=== PATIENT | female | born 1950 | race Caucasian/White ===

== ENCOUNTER 2019-12-17 21:06 | Inpatient (IN) | payer MEDICARE, BC ==
[2019-12-17] MEDS ORDERED: Sodium Chloride 0.9% 10 ML Syringe FLUSH PRN (21:33)
--- NOTE | 2019-12-17 21:39 | EDM.PDOC ---
ED HPI GENERAL MEDICAL PROBLEM - General Chief Complaint: Lower Extremity Injury/Pain Stated Complaint: WEAK,RT ANKLE SWOLLEN Time Seen by Provider: 12/17/19 21:25 Source of Information: Reports: Patient History Limitations: Reports: Other (incomplete medical records.) - History of Present Illness INITIAL COMMENTS - FREE TEXT/NARRATIVE: 69 yo female with a pHx of RA saw Dr. Trinidad on Wednesday for increased pain and swelling of her R ankle this past Wednesday. She says he thought this was due to a flare of her RA. No follow up appt was scheduled. Since then she has had worsening of her sx's. She takes acetaminophen 1000 mg qid chronically including today. Has had chills today. Feels weaker than normal. 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: Acetaminophen - Related Data Allergies Allergy/AdvReac Type Severity Reaction Status Date / Time levofloxacin [From Levaquin] Allergy Leg Cramps Verified 10/30/19 09:44 indomethacin [From Indocin] AdvReac Nausea Verified 03/04/18 11:35 indomethacin sodium AdvReac Nausea Verified 03/04/18 11:35 [From Indocin] naproxen [From Naprosyn] AdvReac Nausea Verified 03/04/18 11:35 trazodone AdvReac Nausea Verified 03/04/18 11:35 Home Meds: Home Meds Amitriptyline [Elavil] 150 mg PO BEDTIME 09/15/13 [History] Cyclobenzaprine [Flexeril] 10 mg PO BID 09/15/13 [History] Ferrous Gluconate 240 mg PO DAILY 09/15/13 [History] Multivitamin [Multi-Vitamin Daily] 1 each PO DAILY 09/15/13 [History] predniSONE [Prednisone] 20 mg PO DAILY 09/15/13 [History] ClonazePAM [KlonoPIN] 0.5 mg PO BEDTIME 03/04/18 [History] carvediloL [Carvedilol] 6.25 mg PO BID 03/04/18 [History] Acetaminophen 2,000 mg PO BID 10/27/19 [History] Budesonide/Formoterol [Symbicort 160-4.5 MCG] 2 puff INH BID 10/27/19 [History] Calcitonin ([place]) [Miacalcin] 1 spray JOHN DAILY 10/27/19 [History] Diclofenac Sodium [Voltaren 1% Gel] 4 gram TOP QID 10/27/19 [History] Pantoprazole Sodium [Protonix] 40 mg PO BID 10/27/19 [History] Pravastatin Sodium [Pravachol] 20 mg PO DAILY 10/27/19 [History] Tryptophan [l-Tryptophan] 2,000 mg PO DAILY PRN 10/27/19 [History] Ubidecarenone [Coq-10] 1 tab PO DAILY 10/27/19 [History] busPIRone [Buspar] 10 mg PO QID 10/27/19 [History] hydrALAZINE [Apresoline] 25 mg PO QID 10/27/19 [History] Past Medical History Cardiovascular History: Reports: High Cholesterol, Hypertension Gastrointestinal History: Reports: GERD Genitourinary History: Reports: Renal Disease 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: Psychiatric History: Reports: Anxiety - Past Surgical History GI Surgical History: Reports: Appendectomy, Colon Female Surgical History: Reports: Section Review of Systems - Review of Systems Review Of Systems: See Below Constitutional: Reports: Chills Eyes: Reports: No Symptoms Ears: Reports: No Symptoms Nose: Reports: No Symptoms Mouth/Throat: Reports: No Symptoms Respiratory: Reports: No Symptoms Cardiovascular: Reports: No Symptoms GI/Abdominal: Reports: No Symptoms Genitourinary: Reports: No Symptoms Musculoskeletal: Reports: Joint Pain (R ankle) Skin: Reports: Erythema (R foot and ankle) Neurological: Reports: No Symptoms ED EXAM, GENERAL - Physical Exam Exam: See Below Exam Limited By: No Limitations General Appearance: Alert, WD/WN, No Apparent Distress Eye Exam: Bilateral Eye: Normal Inspection Ears: Normal External Exam, Normal Canal, Hearing Grossly Normal Ear Exam: Bilateral Ear: Auricle Normal, Canal Normal Nose: Normal Inspection, No Blood Throat/Mouth: Normal Inspection, Normal Lips, Normal Oropharynx, Normal Voice, No Airway Compromise Head: Atraumatic, Normocephalic Neck: Normal Inspection Respiratory/Chest: No Respiratory Distress, Lungs Clear, Normal Breath Sounds, No Accessory Muscle Use Cardiovascular: Regular Rate, Rhythm, No Edema GI/Abdominal: Normal Bowel Sounds, Soft, Non-Tender, No Distention Back Exam: No: CVA Tenderness (R), CVA Tenderness (L) Extremities: Pedal Edema (R ankle, lower leg and foot are edematous), Limited Range of Motion (some ankle pain with movement), Increased Warmth (R leg, ankle , foot), Redness (same area that is swollen) Neurological: Alert, Oriented, CN II-XII Intact, Normal Cognition, No Motor/ Sensory Deficits Psychiatric: Normal Affect, Normal Mood Skin Exam: Warm, Dry, Erythema (R foot and ankle), Increased Warmth (R foot and ankle). No: Normal Color, No Rash Course - Vital Signs Text/Narrative:: Dr. Trinidad called @ 2223h Last Recorded V/S: Last Vital Signs Temp 37.1 C 12/17/19 21:34 Pulse 107 H 12/17/19 21:34 Resp 16 12/17/19 21:34 BP 91/57 L 12/17/19 21:34 Pulse Ox 98 12/17/19 21:34 - Orders/Labs/Meds Orders: Active Orders 24 hr Category Date Time Status CULTURE BLOOD [BC] Routine Lab 12/17/19 22:05 Received CULTURE BLOOD [BC] Stat Lab 12/17/19 21:33 Received Sodium Chloride 0.9% [Saline Flush] Med 12/17/19 21:33 Active 10 ml FLUSH ASDIRECTED PRN cefTRIAXone [Rocephin] 1 gm Med 12/17/19 22:13 Active Sodium Chloride 0.9% [Normal Saline] 50 ml IV ONETIME Saline Lock Insert [OM.PC] Routine Oth 12/17/19 21:33 Ordered Medication Orders Ceftriaxone Sodium 1 gm/ (Sodium Chloride) 50 mls @ 100 mls/hr IV ONETIME ONE Stop: 12/17/19 22:42 Last Admin: 12/17/19 22:26 Dose: 100 mls/hr Sodium Chloride (Saline Flush) 10 ml FLUSH ASDIRECTED PRN PRN Reason: Keep Vein Open Last Admin: 12/17/19 21:49 Dose: 10 ml Labs: Laboratory Tests 12/17/19 12/17/19 12/17/19 Range/Units 21:51 21:51 21:51 WBC 28.5 H (4.5-11.0) K/uL RBC 4.60 (3.30-5.50) M/uL Hgb 14.6 D (12.0-15.0) g/dL Hct 47.7 (36.0-48.0) % MCV 104 H (80-98) fL MCH 32 H (27-31) pg MCHC 31 L (32-36) % Plt Count 269 (150-400) K/uL Sodium 137 L (140-148) mmol/L Potassium 4.2 (3.6-5.2) mmol/L Chloride 100 (100-108) mmol/L Carbon Dioxide 26 (21-32) mmol/L Anion Gap 15.2 H (5.0-14.0) mmol/L BUN 37 H D (7-18) mg/dL Creatinine 2.0 H (0.6-1.0) mg/dL Est Cr Clr Drug Dosing TNP Estimated GFR (MDRD) 25 L (>60) Glucose 112 H (74-106) mg/dL Lactic Acid 2.3 H (0.4-2.0) mmol/L Calcium 8.6 (8.5-10.1) mg/dL C-Reactive Protein 16.48 H (0.0-0.3) mg/dL Urine Color (YELLOW) Urine Appearance (CLEAR) Urine pH (5.0-8.0) Ur Specific [place] (1.008-1.030) Urine Protein (NEGATIVE) mg/dL Urine Glucose (UA) (NEGATIVE) mg/dL Urine Ketones (NEGATIVE) mg/dL Urine Occult Blood (NEGATIVE) Urine Nitrite (NEGATIVE) Urine Bilirubin (NEGATIVE) Urine Urobilinogen (0.2-1.0) EU/dL Ur Leukocyte Esterase (NEGATIVE) Urine RBC (0-5) Urine WBC (0-5) Ur Epithelial Cells Amorphous Sediment Urine Bacteria Urine Mucus 12/17/19 Range/Units 22:05 WBC (4.5-11.0) K/uL RBC (3.30-5.50) M/uL Hgb (12.0-15.0) g/dL Hct (36.0-48.0) % MCV (80-98) fL MCH (27-31) pg MCHC (32-36) % Plt Count (150-400) K/uL Sodium (140-148) mmol/L Potassium (3.6-5.2) mmol/L Chloride (100-108) mmol/L Carbon Dioxide (21-32) mmol/L Anion Gap (5.0-14.0) mmol/L BUN (7-18) mg/dL Creatinine (0.6-1.0) mg/dL Est Cr Clr Drug Dosing Estimated GFR (MDRD) (>60) Glucose (74-106) mg/dL Lactic Acid (0.4-2.0) mmol/L Calcium (8.5-10.1) mg/dL C-Reactive Protein (0.0-0.3) mg/dL Urine Color Yellow (YELLOW) Urine Appearance Clear (CLEAR) Urine pH 6.0 (5.0-8.0) Ur Specific [place] 1.020 (1.008-1.030) Urine Protein 30 H (NEGATIVE) mg/dL Urine Glucose (UA) Negative (NEGATIVE) mg/dL Urine Ketones Negative (NEGATIVE) mg/dL Urine Occult Blood Negative (NEGATIVE) Urine Nitrite Negative (NEGATIVE) Urine Bilirubin Negative (NEGATIVE) Urine Urobilinogen 0.2 (0.2-1.0) EU/dL Ur Leukocyte Esterase Small H (NEGATIVE) Urine RBC Not seen (0-5) Urine WBC 5-10 H (0-5) Ur Epithelial Cells Rare Amorphous Sediment Rare Urine Bacteria Not seen Urine Mucus Not seen Meds: Medications Generic Name Dose Route Start Last Admin Trade Name Freq PRN Reason Stop Dose Admin Ceftriaxone Sodium 1 gm/ 50 mls @ 100 mls/hr 12/17/19 22:13 12/17/19 22:26 Sodium Chloride IV 12/17/19 22:42 100 mls/hr ONETIME ONE Administration Sodium Chloride 10 ml 12/17/19 21:33 12/17/19 21:49 Saline Flush FLUSH 10 ml ASDIRECTED PRN Administration Keep Vein Open Departure - Departure Time of Disposition: 22:45 Disposition: Admitted As Inpatient 64 Condition: Fair Clinical Impression: Cellulitis of right lower extremity - Discharge Information *PRESCRIPTION DRUG MONITORING PROGRAM REVIEWED*: No *COPY OF PRESCRIPTION DRUG MONITORING REPORT IN PATIENT YAW: No Referrals: Roverto Dewey MD [Primary Care Provider] - Forms: ED Department Discharge Sepsis Event Note - Focused Exam Vital Signs: Vital Signs Temp Pulse Resp BP Pulse Ox 12/17/19 21:34 37.1 C 107 H 16 91/57 L 98 12/17/19 21:33 37.1 C 107 H 16 91/57 L 98 Date Exam was Performed: 12/17/19 Time Exam was Performed: 22:27 - My Orders Last 24 Hours: My Active Orders 12/17/19 21:33 CULTURE BLOOD [BC] Stat Sodium Chloride 0.9% [Saline Flush] 10 ml FLUSH ASDIRECTED PRN Saline Lock Insert [OM.PC] Routine 12/17/19 22:05 CULTURE BLOOD [BC] Routine 12/17/19 22:13 cefTRIAXone [Rocephin] 1 gm Sodium Chloride 0.9% [Normal Saline] 50 ml IV ONETIME - Assessment/Plan Last 24 Hours: My Active Orders 12/17/19 21:33 CULTURE BLOOD [BC] Stat Sodium Chloride 0.9% [Saline Flush] 10 ml FLUSH ASDIRECTED PRN Saline Lock Insert [OM.PC] Routine 12/17/19 22:05 CULTURE BLOOD [BC] Routine 12/17/19 22:13 cefTRIAXone [Rocephin] 1 gm Sodium Chloride 0.9% [Normal Saline] 50 ml IV ONETIME
[2019-12-17] MEDS ORDERED: cefTRIAXone 1 GM in Sodium Chloride 0.9% 50 ML IV ONE (22:13)
[2019-12-17] MEDS ORDERED: cefTRIAXone 1 GM in Sodium Chloride 0.9% 50 ML IV SCH (23:15)
[2019-12-18] MEDS: Sodium Chloride 0.9% 1,000 ML IV SCH ×2 (00:02→07:13)
--- NOTE | 2019-12-18 00:25 | HP ---
CHIEF COMPLAINT: Right ankle and foot pain, swelling. HISTORY OF PRESENT ILLNESS: A 69-year-old who has a history of rheumatoid arthritis and also a history over the last couple of months of elevated white count. She has seen Hematology/Oncology. No specific etiology has been identified. She was seen in the clinic by myself. She normally sees Dr. Dewey. I saw her on Wednesday for ankle pain, started the day prior with right ankle pain and swelling, but she states that it was feeling better and she was able to go for a 5 mile walk that day, maybe she was afebrile and maybe was related to rheumatoid arthritis, pain that was feeling better. Was continuing with ice and taking her Tylenol. She is on prednisone, but things progressed over the weekend with increased pain and swelling extending down to the foot. Was evaluated by emergency room physician, was felt to have cellulitis, possible joint infection. She had a sore in her mid pruitt that may have been the source. I was asked to admit the patient for further evaluation and treatment. PAST MEDICAL HISTORY: 1. Rheumatoid arthritis. 2. Polymyalgia rheumatica. 3. Osteoporosis. 4. Gastroesophageal reflux disease. 5. Hyperlipidemia. 6. Secondary hyperparathyroidism. 7. Chronic kidney disease. 8. Type 2 diabetes mellitus. 9. Elevated white count, etiology uncertain. MEDICATIONS: 1. Acetaminophen 2000 mg b.i.d. 2. Amitriptyline 150 mg at bedtime. 3. Symbicort 160/4.5 two puffs b.i.d. 4. Buspirone 10 mg q.i.d. 5. Calcitonin 1 spray nasally daily. 6. Carvedilol 6.25 mg b.i.d. 7. Clonazepam 0.5 mg at bedtime. 8. Cyclobenzaprine 10 mg b.i.d. 9. Diclofenac topically q.i.d. 10.Ferrous gluconate 240 mg daily. 11.Hydralazine 25 mg q.i.d. 12.Multivitamin daily. 13.Protonix 40 mg b.i.d. 14.Pravastatin 20 mg daily. 15.Prednisone 20 mg daily. 16.Tryptophan 2000 mg daily p.r.n. 17.Ubidecarenone 100 mg daily. ALLERGIES: LEVOFLOXACIN, INDOMETHACIN, NAPROXEN, TRAZODONE. SOCIAL HISTORY: Is a nonsmoker. FAMILY HISTORY: Noncontributory. REVIEW OF SYSTEMS: Denies headaches, vision changes, upper respiratory symptoms. No chest pain, shortness of breath, cough, nausea, vomiting, diarrhea, or constipation. No urinary problems reported. She does have the swelling in her right ankle and foot with erythema and discomfort. No neurologic complaints reported. OBJECTIVE: VITAL SIGNS: Temp 37.1, pulse 107, blood pressure 91/57, respirations 16, O2 saturation 98% on room air. GENERAL: The patient seems to be more lethargic than she was on Wednesday, 2 days ago, but was otherwise alert. HEENT: Pharynx, slightly dry mucous membranes, otherwise unremarkable. NECK: Supple. No adenopathy, thyromegaly, JVD, carotid bruits. LUNGS: Clear. HEART: Regular without murmurs. ABDOMEN: Soft, nontender. No mass or organomegaly palpated. EXTREMITIES: She does have edema to the mid tibia with erythema and warmth. Tenderness to the right lower leg and the swelling extends down her foot, which on Wednesday, did not. She does have about a centimeter sore in the pruitt more medially. I do not see any active drainage. Left leg was unremarkable. LABORATORY DATA: White count 28,000, hemoglobin 14.6, platelets 269,000. Sodium 137, potassium 4.2, chloride 100, BUN was 37, creatinine 2.0, glucose 112. Lactic acid was slightly elevated at 2.3. C-reactive protein 16,000. Urinalysis was unremarkable. She did have 5 to 10 white cells. ASSESSMENT: 1. Cellulitis, possible joint infection. We will admit her inpatient. IV antibiotics. She has already been started on IV Rocephin, which we will continue. Blood cultures have been obtained. 2. Underlying rheumatoid arthritis and also history of polymyalgia rheumatica. 3. Hypertension. 4. Chronic kidney disease. 5. Type 2 diabetes mellitus. 6. Gastric reflux disease. Transfer her care to the Hospitalist Service in the morning. Cedric Trinidad MD /[id number]
[2019-12-18] MEDS: Fluticasone-Salmeterol 232-14 MCG Powder Inhalent INH SCH ×2 (08:29→21:44)
[2019-12-18] MEDS ORDERED: Calcitonin (Salmon) 200 Units/ML 2 ML MDV SCH (09:00)
[2019-12-18] MEDS: Ferrous Sulfate 325 MG Tab PO SCH (09:28)
[2019-12-18] MEDS: predniSONE 20 MG Tab PO SCH (09:28)
[2019-12-18] MEDS: Carvedilol 6.25 MG Tab PO SCH ×2 (09:29→21:31)
[2019-12-18] MEDS: Pantoprazole 40 MG Tab.CR PO SCH ×2 (09:29→21:32)
[2019-12-18] MEDS: Multivitamins with Iron/Calcium/Folic Acid/Minerals Tab PO SCH (09:29)
[2019-12-18] MEDS: Cyclobenzaprine 10 MG Tab PO SCH ×2 (09:29→21:30)
[2019-12-18] MEDS: Calcitonin (Salmon) Nasal Spray 3.7 ML Bottle NAS SCH (09:29)
[2019-12-18] MEDS: Pravastatin 20 MG Tab PO SCH (09:29)
[2019-12-18] MEDS: Acetaminophen 325 MG Tab PO PRN (09:34)
[2019-12-18] MEDS: busPIRone 10 MG Tab PO SCH ×2 (09:36→17:15)
[2019-12-18] MEDS: hydrALAZINE 25 MG Tab PO SCH ×4 (09:36→21:30)
[2019-12-18] MEDS ORDERED: ceFAZolin 1 GM in Premix Bag 1 BAG IV SCH ×2 (11:00→14:00)
[2019-12-18] MEDS: Lactobacillus Rhamnosus GG (Probiotic) Cap PO SCH ×2 (11:49→21:30)
[2019-12-18] MEDS: busPIRone 5 MG Tab PO SCH ×3 (12:29→21:45)
--- NOTE | 2019-12-18 13:53 | PCM.PN ---
- General Info Date of Service: 12/18/19 Subjective Update: Ms. Singleton is a 69-year-old woman who was admitted through the emergency department last night with apparent cellulitis of her right ankle. She notes some improvement in erythema and swelling since admission with current antibiotic therapy. She has known underlying rheumatoid arthritis and has been treated recently with oral prednisone. Since admission she is developed pain and swelling in the first PIP joint right hand. Vital signs have remained fairly stable and she has been afebrile, white blood cell count remains elevated Functional Status: Reports: Tolerating Diet, Urinating. Denies: Ambulating - Review of Systems General: Reports: Weakness, Malaise. Denies: Fever, Chills Pulmonary: Reports: No Symptoms Cardiovascular: Reports: No Symptoms Gastrointestinal: Reports: No Symptoms Musculoskeletal: Reports: Joint Pain, Joint Swelling - Patient Data Vitals - Most Recent: Last Vital Signs Temp 97.4 F 12/18/19 11:12 Pulse 84 12/18/19 11:12 Resp 16 12/18/19 11:12 BP 119/69 12/18/19 11:12 Pulse Ox 96 12/18/19 11:12 Weight - Most Recent: 101 lb I&O - Last 24 Hours: Intake & Output 12/17/19 12/18/19 12/18/19 22:59 06:59 14:59 Intake Total 789 350 Output Total 350 Balance 789 0 Lab Results Last 24 Hours: Laboratory Results - last 24 hr 12/17/19 12/17/19 12/17/19 Range/Units 21:51 21:51 21:51 WBC 28.5 H (4.5-11.0) K/uL RBC 4.60 (3.30-5.50) M/uL Hgb 14.6 D (12.0-15.0) g/dL Hct 47.7 (36.0-48.0) % MCV 104 H (80-98) fL MCH 32 H (27-31) pg MCHC 31 L (32-36) % Plt Count 269 (150-400) K/uL Neut % (Auto) (36-66) % Lymph % (Auto) (24-44) % [place] % (Auto) (2-6) % Eos % (Auto) (2-4) % Baso % (Auto) (0-1) % Sodium 137 L (140-148) mmol/L Potassium 4.2 (3.6-5.2) mmol/L Chloride 100 (100-108) mmol/L Carbon Dioxide 26 (21-32) mmol/L Anion Gap 15.2 H (5.0-14.0) mmol/L BUN 37 H D (7-18) mg/dL Creatinine 2.0 H (0.6-1.0) mg/dL Est Cr Clr Drug Dosing TNP Estimated GFR (MDRD) 25 L (>60) Glucose 112 H (74-106) mg/dL Lactic Acid 2.3 H (0.4-2.0) mmol/L Calcium 8.6 (8.5-10.1) mg/dL C-Reactive Protein 16.48 H (0.0-0.3) mg/dL Urine Color (YELLOW) Urine Appearance (CLEAR) Urine pH (5.0-8.0) Ur Specific [place] (1.008-1.030) Urine Protein (NEGATIVE) mg/dL Urine Glucose (UA) (NEGATIVE) mg/dL Urine Ketones (NEGATIVE) mg/dL Urine Occult Blood (NEGATIVE) Urine Nitrite (NEGATIVE) Urine Bilirubin (NEGATIVE) Urine Urobilinogen (0.2-1.0) EU/dL Ur Leukocyte Esterase (NEGATIVE) Urine RBC (0-5) Urine WBC (0-5) Ur Epithelial Cells Amorphous Sediment Urine Bacteria Urine Mucus 12/17/19 12/18/19 12/18/19 Range/Units 22:05 04:40 04:40 WBC 32.3 H* (4.5-11.0) K/uL RBC 4.03 (3.30-5.50) M/uL Hgb 13.0 (12.0-15.0) g/dL Hct 42.4 (36.0-48.0) % MCV 105 H (80-98) fL MCH 32 H (27-31) pg MCHC 31 L (32-36) % Plt Count 222 (150-400) K/uL Neut % (Auto) 90 H (36-66) % Lymph % (Auto) 4 L (24-44) % [place] % (Auto) 6 (2-6) % Eos % (Auto) 0 L (2-4) % Baso % (Auto) 0 (0-1) % Sodium 138 L (140-148) mmol/L Potassium 4.8 (3.6-5.2) mmol/L Chloride 102 (100-108) mmol/L Carbon Dioxide 29 (21-32) mmol/L Anion Gap 11.8 (5.0-14.0) mmol/L BUN 40 H (7-18) mg/dL Creatinine 2.1 H (0.6-1.0) mg/dL Est Cr Clr Drug Dosing 17.81 Estimated GFR (MDRD) 23 L (>60) Glucose 143 H (74-106) mg/dL Lactic Acid (0.4-2.0) mmol/L Calcium 8.2 L (8.5-10.1) mg/dL C-Reactive Protein (0.0-0.3) mg/dL Urine Color Yellow (YELLOW) Urine Appearance Clear (CLEAR) Urine pH 6.0 (5.0-8.0) Ur Specific [place] 1.020 (1.008-1.030) Urine Protein 30 H (NEGATIVE) mg/dL Urine Glucose (UA) Negative (NEGATIVE) mg/dL Urine Ketones Negative (NEGATIVE) mg/dL Urine Occult Blood Negative (NEGATIVE) Urine Nitrite Negative (NEGATIVE) Urine Bilirubin Negative (NEGATIVE) Urine Urobilinogen 0.2 (0.2-1.0) EU/dL Ur Leukocyte Esterase Small H (NEGATIVE) Urine RBC Not seen (0-5) Urine WBC 5-10 H (0-5) Ur Epithelial Cells Rare Amorphous Sediment Rare Urine Bacteria Not seen Urine Mucus Not seen Med Orders - Current: Current Medications Acetaminophen (Tylenol) 650 mg PO Q4H PRN PRN Reason: Pain (Mild 1-3)/fever Last Admin: 12/18/19 09:34 Dose: 650 mg Amitriptyline HCl (Elavil) 150 mg PO BEDTIME [facility] Buspirone HCl (Buspar) 5 mg PO QID [facility] Last Admin: 12/18/19 12:29 Dose: 5 mg Calcitonin [place] (Miacalcin Nasal [place]) 0 ml JOHN DAILY [facility] Last Admin: 12/18/19 09:29 Dose: 1 spray Carvedilol (Coreg) 6.25 mg PO BID [facility] Last Admin: 12/18/19 09:29 Dose: 6.25 mg Clonazepam (Klonopin) 0.5 mg PO BEDTIME [facility] Cyclobenzaprine HCl (Flexeril) 10 mg PO BID [facility] Last Admin: 12/18/19 09:29 Dose: 10 mg Enoxaparin Sodium (Lovenox) 30 mg SUBCUT Q24H [facility] Ferrous Sulfate (Ferrous Sulfate) 325 mg PO DAILY@0800 [facility] Last Admin: 12/18/19 09:28 Dose: 325 mg Hydralazine HCl (Apresoline) 25 mg PO QID [facility] Last Admin: 12/18/19 12:24 Dose: Not Given Cefazolin Sodium/Dextrose 1 gm (/ Premix) 50 mls @ 100 mls/hr IV Q12H [facility] Stop: 12/18/19 14:00 Last Admin: 12/18/19 11:49 Dose: 100 mls/hr Cefazolin Sodium/Dextrose 1 gm (/ Premix) 50 mls @ 100 mls/hr IV Q8H [facility] Lactobacillus Rhamnosus (Culturelle) 1 cap PO BID [facility] Last Admin: 12/18/19 11:49 Dose: 1 cap Multivitamins/Minerals (Thera M Plus) 1 tab PO DAILY [facility] Last Admin: 12/18/19 09:29 Dose: 1 tab (Tryptophan [L- Tryptophan] 2,000 Mg ) 2,000 mg PO BEDTIME PRN PRN Reason: Sleep (Ubidecarenone [Coq- (10] 1 Tab)) 1 tab PO DAILY [facility] Last Admin: 12/18/19 09:35 Dose: Not Given Pantoprazole Sodium (Protonix) 40 mg PO BID [facility] Last Admin: 12/18/19 09:29 Dose: 40 mg Pravastatin Sodium (Pravachol) 20 mg PO DAILY [facility] Last Admin: 12/18/19 09:29 Dose: 20 mg Prednisone (Prednisone) 20 mg PO DAILY@0800 [facility] Last Admin: 12/18/19 09:28 Dose: 20 mg Fluticasone/Salmeterol (Fluticasone-Salmeterol 232-14 Mcg Powder [place]) 1 puff INH BIDRT [facility] Last Admin: 12/18/19 08:29 Dose: 1 puff Sodium Chloride (Saline Flush) 10 ml FLUSH ASDIRECTED PRN PRN Reason: Keep Vein Open Last Admin: 12/17/19 21:49 Dose: 10 ml Discontinued Medications Buspirone HCl (Buspar) 10 mg PO QID [facility] Last Admin: 12/18/19 09:36 Dose: Not Given Calcitonin [place] (Miacalcin) 0 units .XX DAILY [facility] Ceftriaxone Sodium 1 gm/ (Sodium Chloride) 50 mls @ 100 mls/hr IV ONETIME ONE Stop: 12/17/19 22:42 Last Admin: 12/17/19 22:26 Dose: 100 mls/hr Sodium Chloride (Normal Saline) 1,000 mls @ 125 mls/hr IV ASDIRECTED [facility] Last Admin: 12/18/19 07:13 Dose: 125 mls/hr Ceftriaxone Sodium 1 gm/ (Sodium Chloride) 50 mls @ 100 mls/hr IV Q24H [facility]ONG - Exam Quality Assessment: DVT Prophylaxis General: Alert, Oriented, Cooperative, Moderate Distress Lungs: Clear to Auscultation, Normal Respiratory Effort Cardiovascular: Regular Rate, Regular Rhythm, No Murmurs GI/Abdominal Exam: Soft, Non-Tender, No Organomegaly, No Distention Extremities: Joint Swelling (Pain and swelling right ankle), Redness Sepsis Event Note - Evaluation Sepsis Screening Result: No Definite Risk - Focused Exam Vital Signs: Vital Signs Temp Pulse Pulse Resp BP BP Pulse Ox 12/18/19 11:12 97.4 F 84 16 119/69 96 12/18/19 09:29 85 105/55 L 12/18/19 07:10 97.3 F 85 18 105/55 L 100 12/18/19 04:32 93/52 L 12/18/19 04:15 97.2 F 80 14 85/48 L 96 Date Exam was Performed: 12/18/19 Time Exam was Performed: 13:48 - Problem List Review Problem List Initiated/Reviewed/Updated: Yes - My Orders Last 24 Hours: My Active Orders 12/18/19 09:45 Lactobacillus Rhamnosus GG [Culturelle] 1 cap PO BID 12/18/19 11:00 ceFAZolin [Ancef] 1 gm Premix Bag 1 bag IV Q12H 12/18/19 12:15 busPIRone [Buspar] 5 mg PO QID 12/18/19 13:44 Ankle wo Cont Rt [MR] Urgent 12/18/19 13:45 Convert IV to Saline Lock [OM.PC] Routine 12/18/19 13:47 Notify Provider Consults [RC] ASDIRECTED Consult to Physician [CONS] Routine 12/18/19 14:00 Enoxaparin [Lovenox] 30 mg SUBCUT Q24H 12/18/19 20:00 ceFAZolin [Ancef] 1 gm Premix Bag 1 bag IV Q8H 12/19/19 05:00 BASIC METABOLIC PANEL,BMP [CHEM] Timed CBC WITH AUTO DIFF [HEME] Timed - Plan Plan:: ASSESSMENT AND PLAN PAIN AND SWELLING RIGHT ANKLE-longstanding history of rheumatoid arthritis. Probable cellulitis versus joint infection versus inflammation. White blood cell count is elevated but this is likely secondary to recent oral prednisone. Also is developed some inflammation right first PIP joint -Consult Dr. Duncan for orthopedic opinion -Cultures pending -Continue cefazolin 1 g IV every 8 hours -MRI of the right ankle HISTORY OF RHEUMATOID ARTHRITIS -Continue outpatient medications CHRONIC KIDNEY DISEASE STAGE IV -Closely monitor urine output and renal function during hospital stay MAINTENANCE ISSUES -DVT prophylaxis; Lovenox 30 mg subcu daily -GI prophylaxis; continue outpatient PPI therapy -[place] catheter; not indicated -Nutrition; regular diet -Nicotine dependence; not required CODE STATUS-full code ADMISSION STATUS-patient will be admitted to inpatient status, expect at least a 2 night hospital stay for evaluation and management of problems as outlined above. At the time of this admission I do not reasonably expected evaluation and management of this problem will require more than a 96 hour hospital stay. DISPOSITION-anticipate discharge to home after the hospital stay. PRIMARY CARE PROVIDER-Dr. Dewey
--- NOTE | 2019-12-18 16:12 | CRLMR ---
HISTORY: Inflammation and swelling. Rheumatoid arthritis. TECHNIQUE: Axial, sagittal and T1 and STIR images were obtained of the right ankle without contrast. Contrast was not administered secondary to impaired renal function. COMPARISON: No prior. FINDINGS: TENDONS: There is a small amount of fluid within the posterior tibial and flexor digitorum longus tendon sheaths. A moderate amount of fluid is present within the flexor hallucis longus tendon sheath. There is no tear of those tendons nor significant tendinosis. The anterior extensor tendons are intact. Minor Achilles tendinosis without tendon tear. Peroneus longus and brevis tendons are intact. - LIGAMENTS: The anterior and posterior syndesmotic ligaments are intact. Deltoid ligament is intact. Lateral ankle ligamentous structures are intact. Sinus tarsi fat is maintained. Calcaneonavicular spring ligament intact. [id number] includes the Lisfranc ligament without ligament appearing intact. - JOINT SPACES: Small amount of ankle and posterior subtalar joint fluid. Small amount of talonavicular and calcaneocuboid joint fluid. No erosions. Small area subchondral marrow edema involving the medial talar dome likely relates to a limited area of overlying grade 4 chondromalacia. The articular cartilage of the ankle joint is otherwise maintained. Joint spaces within the midfoot and at the midfoot-forefoot junction are maintained. - OSSEOUS STRUCTURES: No osteomyelitis. No acute fracture or avascular necrosis. - SOFT TISSUES: There is diffuse subcutaneous edema like signal involving the lower leg, ankle and foot. Edema like signal is also noted involving portions of the foot musculature and lower leg musculature. Assessment for fluid collections is limited by noncontrast nature of this MRI. No definite fluid collection is seen. Proximal plantar fascia is intact. IMPRESSION: 1. Diffuse soft tissue edema and/or cellulitis. 2. Assessment for soft tissue fluid collections is limited by noncontrast nature of this MRI. No definite soft tissue fluid collection is seen to suggest a soft tissue abscess. 3. No osteomyelitis. 4. Small amount of nonspecific fluid within the ankle, posterior subtalar, talonavicular and calcaneocuboid joint spaces. There are no erosions or significant periarticular marrow edema. 5. Small amount of fluid within the posterior tibial and flexor digitorum longus tendon sheaths along with moderate fluid within the flexor hallucis longus tendon sheath. This may indicate tenosynovitis changes. There is no underlying tendinosis or tendon tear. Dictated by Tacho Ramirez MD @ Dec 18 2019 4:10PM Signed by Dr. Tacho Ramirez @ Dec 18 2019 4:10PM
[2019-12-18] MEDS: Enoxaparin 30 MG/0.3 ML Syringe SUBCUT SCH (16:57)
--- NOTE | 2019-12-18 17:23 | PCM.CONS ---
H&P History of Present Illness - General Date of Service: 12/18/19 Admit Problem/Dx: Admission Diagnosis/Problem Admission Diagnosis/Problem Cellulitis Source of Information: Patient, Provider History Limitations: Reports: No Limitations - History of Present Illness Initial Comments - Free Text/Narative: 69 year old admitted with increasing right ankle pain and new onset of right thumb IP joint pain and swelling. Walked 4-5 miles the day prior to admission which is typical for her. Tried icing but pain and redness increased fairly rapidly Wednesday. Started on antibiotics and has had some mild improvement but still has pain with weight bearing and motion. Right thumb pain and swelling just started today. No significant fevers, no chills. Symptom Onset Date: 12/15/19 Quality: Reports: Ache, Sharp Severity: Severe (with weight bearing) Improves with: Reports: Rest Worsens with: Reports: Movement Right Foot Pain Score (Numeric/FACES): 6 - Related Data Allergies/Adverse Reactions: Allergies Allergy/AdvReac Type Severity Reaction Status Date / Time levofloxacin [From Levaquin] Allergy Leg Cramps Verified 12/18/19 06:33 indomethacin [From Indocin] AdvReac Nausea Verified 12/18/19 06:33 indomethacin sodium AdvReac Nausea Verified 12/18/19 06:33 [From Indocin] naproxen [From Naprosyn] AdvReac Nausea Verified 12/18/19 06:33 trazodone AdvReac Nausea Verified 12/18/19 06:33 Home Medications: Home Meds Amitriptyline [Elavil] 150 mg PO BEDTIME 09/15/13 [History] Cyclobenzaprine [Flexeril] 10 mg PO BID 09/15/13 [History] Ferrous Gluconate 240 mg PO DAILY 09/15/13 [History] Multivitamin [Multi-Vitamin Daily] 1 each PO DAILY 09/15/13 [History] predniSONE [Prednisone] 20 mg PO DAILY 09/15/13 [History] ClonazePAM [KlonoPIN] 0.5 mg PO BEDTIME 03/04/18 [History] carvediloL [Carvedilol] 6.25 mg PO BID 03/04/18 [History] Acetaminophen 2,000 mg PO BID 10/27/19 [History] Budesonide/Formoterol [Symbicort 160-4.5 MCG] 2 puff INH BID PRN 10/27/19 [ History] Calcitonin ([place]) [Miacalcin] 1 spray JOHN DAILY 10/27/19 [History] Diclofenac Sodium [Voltaren 1% Gel] 4 gram TOP QID PRN 10/27/19 [History] Pantoprazole Sodium [Protonix] 40 mg PO BID 10/27/19 [History] Pravastatin Sodium [Pravachol] 20 mg PO DAILY 10/27/19 [History] Tryptophan [l-Tryptophan] 2,000 mg PO DAILY PRN 10/27/19 [History] Ubidecarenone [Coq-10] 1 tab PO DAILY 10/27/19 [History] busPIRone [Buspar] 5 mg PO QID 10/27/19 [History] hydrALAZINE [Apresoline] 25 mg PO QID 10/27/19 [History] Past Medical History Cardiovascular History: Reports: High Cholesterol, Hypertension Gastrointestinal History: Reports: GERD Genitourinary History: Reports: Renal Disease [employer]SH[employer] 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: Musculoskeletal History: Reports: Osteoporosis, RA, Other (See Below) Other Musculoskeletal History: Polymyalgia rheumatica Psychiatric History: Reports: Anxiety Endocrine/Metabolic History: Reports: Diabetes, Type II, Hyperparathyroidism Hematologic History: Reports: Other (See Below) Other Hematologic History: elevated WBC, refered hematology - Past Surgical History GI Surgical History: Reports: Appendectomy, Colon Female Surgical History: Reports: Section Social & Family History - Family History Family Medical History: Noncontributory - Tobacco Use Smoking Status *Q: Never Smoker - Caffeine Use Caffeine Use: Reports: Coffee - Recreational Drug Use Recreational Drug Use: No H&P Review of Systems - Review of Systems: Review Of Systems: See Below Musculoskeletal: Reports: Joint Pain (right ankle and thumb) Skin: Reports: Erythema (anterior ankle) Exam - Exam Exam: See Below - Vital Signs Vital Signs: Last Vital Signs Temp 35.8 C L 12/18/19 15:00 Pulse 76 12/18/19 15:00 Resp 15 12/18/19 15:00 BP 132/83 12/18/19 16:57 Pulse Ox 97 12/18/19 15:00 Weight: 45.813 kg - Exam General: Alert, Oriented Extremities: Limited Range of Motion, Redness Skin: Warm Physical Exam Comments:: Right thumb with swelling and mild redness and slight warmth at IP joint, right ankle with redness and warmth primarily anterior, moderated swelling, minimal pain with ROM of toes, moderate pain with active and passive ROM of ankle, minimal tenderness posterior to medial or lateral malleolus - Patient Data Lab Results Last 24 hrs: Laboratory Results - last 24 hr 12/17/19 12/17/19 12/17/19 Range/Units 21:51 21:51 21:51 WBC 28.5 H (4.5-11.0) K/uL RBC 4.60 (3.30-5.50) M/uL Hgb 14.6 D (12.0-15.0) g/dL Hct 47.7 (36.0-48.0) % MCV 104 H (80-98) fL MCH 32 H (27-31) pg MCHC 31 L (32-36) % Plt Count 269 (150-400) K/uL Neut % (Auto) (36-66) % Lymph % (Auto) (24-44) % [place] % (Auto) (2-6) % Eos % (Auto) (2-4) % Baso % (Auto) (0-1) % Sodium 137 L (140-148) mmol/L Potassium 4.2 (3.6-5.2) mmol/L Chloride 100 (100-108) mmol/L Carbon Dioxide 26 (21-32) mmol/L Anion Gap 15.2 H (5.0-14.0) mmol/L BUN 37 H D (7-18) mg/dL Creatinine 2.0 H (0.6-1.0) mg/dL Est Cr Clr Drug Dosing TNP Estimated GFR (MDRD) 25 L (>60) Glucose 112 H (74-106) mg/dL Lactic Acid 2.3 H (0.4-2.0) mmol/L Calcium 8.6 (8.5-10.1) mg/dL C-Reactive Protein 16.48 H (0.0-0.3) mg/dL Urine Color (YELLOW) Urine Appearance (CLEAR) Urine pH (5.0-8.0) Ur Specific [place] (1.008-1.030) Urine Protein (NEGATIVE) mg/dL Urine Glucose (UA) (NEGATIVE) mg/dL Urine Ketones (NEGATIVE) mg/dL Urine Occult Blood (NEGATIVE) Urine Nitrite (NEGATIVE) Urine Bilirubin (NEGATIVE) Urine Urobilinogen (0.2-1.0) EU/dL Ur Leukocyte Esterase (NEGATIVE) Urine RBC (0-5) Urine WBC (0-5) Ur Epithelial Cells Amorphous Sediment Urine Bacteria Urine Mucus 12/17/19 12/18/19 12/18/19 Range/Units 22:05 04:40 04:40 WBC 32.3 H* (4.5-11.0) K/uL RBC 4.03 (3.30-5.50) M/uL Hgb 13.0 (12.0-15.0) g/dL Hct 42.4 (36.0-48.0) % MCV 105 H (80-98) fL MCH 32 H (27-31) pg MCHC 31 L (32-36) % Plt Count 222 (150-400) K/uL Neut % (Auto) 90 H (36-66) % Lymph % (Auto) 4 L (24-44) % [place] % (Auto) 6 (2-6) % Eos % (Auto) 0 L (2-4) % Baso % (Auto) 0 (0-1) % Sodium 138 L (140-148) mmol/L Potassium 4.8 (3.6-5.2) mmol/L Chloride 102 (100-108) mmol/L Carbon Dioxide 29 (21-32) mmol/L Anion Gap 11.8 (5.0-14.0) mmol/L BUN 40 H (7-18) mg/dL Creatinine 2.1 H (0.6-1.0) mg/dL Est Cr Clr Drug Dosing 17.81 Estimated GFR (MDRD) 23 L (>60) Glucose 143 H (74-106) mg/dL Lactic Acid (0.4-2.0) mmol/L Calcium 8.2 L (8.5-10.1) mg/dL C-Reactive Protein (0.0-0.3) mg/dL Urine Color Yellow (YELLOW) Urine Appearance Clear (CLEAR) Urine pH 6.0 (5.0-8.0) Ur Specific [place] 1.020 (1.008-1.030) Urine Protein 30 H (NEGATIVE) mg/dL Urine Glucose (UA) Negative (NEGATIVE) mg/dL Urine Ketones Negative (NEGATIVE) mg/dL Urine Occult Blood Negative (NEGATIVE) Urine Nitrite Negative (NEGATIVE) Urine Bilirubin Negative (NEGATIVE) Urine Urobilinogen 0.2 (0.2-1.0) EU/dL Ur Leukocyte Esterase Small H (NEGATIVE) Urine RBC Not seen (0-5) Urine WBC 5-10 H (0-5) Ur Epithelial Cells Rare Amorphous Sediment Rare Urine Bacteria Not seen Urine Mucus Not seen Result Diagrams: 12/18/19 04:40 12/18/19 04:40 Sepsis Event Note - Evaluation Sepsis Screening Result: No Definite Risk - Focused Exam Vital Signs: Vital Signs Temp Pulse Pulse Resp BP BP Pulse Ox 12/18/19 16:57 132/83 12/18/19 15:00 35.8 C L 76 15 132/83 97 12/18/19 11:12 36.3 C 84 16 119/69 96 12/18/19 09:29 85 105/55 L 12/18/19 07:10 36.3 C 85 18 105/55 L 100 Date Exam was Performed: 12/18/19 Time Exam was Performed: 17:16 Consult PN Assessment/Plan Procedures: Procedures AGENT NOS ASSAY W/OPTIC (12/28/13) ASSAY OF AMYLASE (12/28/13) ASSAY OF CREATININE (12/18/13) ASSAY OF LIPASE (12/28/13) ASSAY OF MAGNESIUM (12/28/13) ASSAY OF PHOSPHORUS (12/28/13) BREAST TOMOSYNTHESIS BI (08/04/19) C-REACTIVE PROTEIN (12/28/13) CARDIOVASCULAR STRESS TEST (10/30/19) CHEST X-RAY 1 VIEW FRONTAL (12/18/13) CLOSTRIDIUM AG IA (12/28/13) COMP SCREEN MAMMOGRAM ADD-ON (11/15/15) COMPLETE CBC AUTOMATED (12/28/13) COMPLETE CBC W/AUTO DIFF WBC (12/28/13) COMPREHEN METABOLIC PANEL (12/28/13) CT ABD & PELVIS W/O CONTRAST (12/28/13) CT NECK SPINE W/O DYE (05/17/17) CT THORAX W/O DYE (10/30/19) CULTR BACTERIA EXCEPT BLOOD (12/18/13) CULTURE AEROBIC IDENTIFY (12/18/13) CULTURE OTHR SPECIMN AEROBIC (12/18/13) EMERGENCY DEPT VISIT (03/04/18) EMERGENCY DEPT VISIT (12/28/13) HT MUSCLE IMAGE SPECT MULT (10/30/19) HYDRATE IV INFUSION ADD-ON (12/28/13) INSERT TEMP BLADDER CATH (12/18/13) LUNG VENTILAT&PERFUS IMAGING (11/02/19) MEASURE BLOOD OXYGEN LEVEL (12/28/13) METABOLIC PANEL IONIZED CA (12/18/13) METABOLIC PANEL TOTAL CA (12/28/13) MICROBE SUSCEPTIBLE JOSHUA (12/18/13) MRI JOINT UPR EXTREM W/O DYE (05/10/17) MRI NECK SPINE W/O DYE (05/10/17) PPSV23 VACC 2 YRS+ SUBQ/IM (12/18/13) RBC SED RATE NONAUTOMATED (12/28/13) RMVL DEVITAL TIS 20 CM/< (03/04/18) ROUTINE VENIPUNCTURE (12/28/13) SCR MAMMO BI INCL CAD (08/04/19) SMEAR GRAM STAIN (12/18/13) STOOL CULTR AEROBIC BACT EA (12/28/13) THER/PROPH/DIAG INJ IV PUSH (12/28/13) THER/PROPH/DIAG IV INF INIT (12/18/13) TISSUE EXAM BY PATHOLOGIST (12/18/13) TISSUE EXAM BY PATHOLOGIST (12/18/13) TX/PRO/DX INJ NEW DRUG ADDON (12/18/13) TX/PRO/DX INJ SAME DRUG MUSEUM EXHIBIT TECHNICIAN (12/18/13) URINALYSIS AUTO W/SCOPE (12/28/13) US EXAM ABDO BACK WALL COMP (11/05/15) US EXAM ABDO BACK WALL [place] (08/05/15) VASCULAR STUDY (11/05/15) X-RAY EXAM COMPLETE ABDOMEN (12/28/13) X-RAY EXAM OF ABDOMEN (12/28/13) (1) Cellulitis of right lower extremity SNOMED Code(s): 251961903 Code(s): L03.115 - CELLULITIS OF RIGHT LOWER LIMB Current Visit: Yes Assessment:: WBC and C-RP both significantly elevated. My initial impression was that this is primarily a soft tissue infection without ankle joint involvement and the the thumb is likely a reactive synovitis. Impression of the ankle is confirmed by the MRI. Reviewed MRI and there is no ankle joint effusion or evidence of osteomyelitis. Induration of soft tissues and tenosynovitis with fluid especially around posterior tibialis. No indication for surgery at this point. Will re-asses in the morning. Problem List Initiated/Reviewed/Updated: Yes
[2019-12-18] MEDS: ceFAZolin 1 GM in Premix Bag 1 BAG IV SCH (19:35)
[2019-12-18] MEDS: ClonazePAM 0.5 MG Tab PO SCH (21:44)
[2019-12-18] MEDS ORDERED: cefTRIAXone 1 GM in Sodium Chloride 0.9% 50 ML IV SCH (22:00)
[2019-12-19] MEDS: Acetaminophen 325 MG Tab PO PRN ×3 (00:58→11:43)
[2019-12-19] MEDS: ceFAZolin 1 GM in Premix Bag 1 BAG IV SCH ×2 (04:35→11:27)
[2019-12-19] MEDS: hydrALAZINE 25 MG Tab PO SCH ×4 (05:14→21:11)
[2019-12-19] MEDS: busPIRone 5 MG Tab PO SCH ×4 (05:14→21:08)
[2019-12-19] MEDS: Fluticasone-Salmeterol 232-14 MCG Powder Inhalent INH SCH ×2 (07:13→21:07)
[2019-12-19] MEDS: predniSONE 20 MG Tab PO SCH (08:40)
[2019-12-19] MEDS: Ferrous Sulfate 325 MG Tab PO SCH (08:40)
[2019-12-19] MEDS: Carvedilol 6.25 MG Tab PO SCH ×2 (08:40→21:04)
[2019-12-19] MEDS: Cyclobenzaprine 10 MG Tab PO SCH ×2 (08:41→21:07)
[2019-12-19] MEDS: Lactobacillus Rhamnosus GG (Probiotic) Cap PO SCH ×2 (08:41→21:06)
[2019-12-19] MEDS: Multivitamins with Iron/Calcium/Folic Acid/Minerals Tab PO SCH (08:41)
[2019-12-19] MEDS: Calcitonin (Salmon) Nasal Spray 3.7 ML Bottle NAS SCH (08:41)
[2019-12-19] MEDS: Pravastatin 20 MG Tab PO SCH (08:42)
[2019-12-19] MEDS: Pantoprazole 40 MG Tab.CR PO SCH ×2 (08:42→21:08)
[2019-12-19] MEDS ORDERED: Furosemide 40 MG/4 ML VIAL IVPUSH ONE (13:00)
--- NOTE | 2019-12-19 15:20 | PCM.PN ---
- General Info Date of Service: 12/19/19 Subjective Update: Ms. Singleton is been stable since yesterday with no significant temperature elevation. White blood cell count has shown improvement but still remains significantly elevated. Blood cultures are growing out gram-positive cocci, final ID and sensitivities are pending. She continues to experience pain and swelling in the right ankle as well as the right thumb. MRI of the ankle showed no evidence of osteoma myelitis or joint infection. There was evidence of soft tissue swelling and tenosynovitis. Appreciate review by Dr. Cavazos. Functional Status: Reports: Tolerating Diet, Urinating - Review of Systems General: Reports: Weakness, Fatigue. Denies: Fever, Chills Pulmonary: Reports: No Symptoms Cardiovascular: Reports: No Symptoms Gastrointestinal: Reports: No Symptoms Musculoskeletal: Reports: Other (Erythema and swelling around the right ankle with tenderness to palpation) - Patient Data Vitals - Most Recent: Last Vital Signs Temp 97.1 F 12/19/19 15:04 Pulse 78 12/19/19 15:04 Resp 22 H 12/19/19 15:04 BP 132/74 12/19/19 15:04 Pulse Ox 98 12/19/19 15:04 Weight - Most Recent: 101 lb I&O - Last 24 Hours: Intake & Output 12/19/19 12/19/19 12/19/19 06:59 14:59 22:59 Intake Total 240 530 Output Total 50 100 200 Balance 190 430 -200 Lab Results Last 24 Hours: Laboratory Results - last 24 hr 12/19/19 12/19/19 Range/Units 04:20 04:20 WBC 24.6 H (4.5-11.0) K/uL RBC 3.72 (3.30-5.50) M/uL Hgb 12.1 (12.0-15.0) g/dL Hct 39.3 (36.0-48.0) % MCV 106 H (80-98) fL MCH 33 H (27-31) pg MCHC 31 L (32-36) % Plt Count 277 (150-400) K/uL Add Manual Diff Yes Neutrophils % (Manual) 84 H (36-66) % Band Neutrophils % 7 (5-11) % Lymphocytes % (Manual) 3 L (24-44) % Monocytes % (Manual) 6 (2-6) % Sodium 143 (140-148) mmol/L Potassium 4.0 (3.6-5.2) mmol/L Chloride 108 (100-108) mmol/L Carbon Dioxide 27 (21-32) mmol/L Anion Gap 8.5 (5.0-14.0) mmol/L BUN 43 H (7-18) mg/dL Creatinine 1.7 H (0.6-1.0) mg/dL Est Cr Clr Drug Dosing 21.95 mL/min Estimated GFR (MDRD) 30 L (>60) Glucose 114 H (74-106) mg/dL Calcium 7.8 L (8.5-10.1) mg/dL Franco Results Last 24 Hours: Microbiology 12/17/19 22:05 Aerobic Blood Culture - Preliminary Blood - Arm, Left Anaerobic Blood Culture - Preliminary NO GROWTH AFTER 1 DAY 12/17/19 21:33 Aerobic Blood Culture - Preliminary Blood - Venous - Iv Start Anaerobic Blood Culture - Preliminary Med Orders - Current: Current Medications Acetaminophen (Tylenol) 650 mg PO Q4H PRN PRN Reason: Pain (Mild 1-3)/fever Last Admin: 12/19/19 11:43 Dose: 650 mg Amitriptyline HCl (Elavil) 150 mg PO BEDTIME [facility] Last Admin: 12/18/19 21:27 Dose: 150 mg Buspirone HCl (Buspar) 5 mg PO QID [facility] Last Admin: 12/19/19 10:09 Dose: 5 mg Calcitonin [place] (Miacalcin Nasal [place]) 0 ml JOHN DAILY [facility] Last Admin: 12/19/19 08:41 Dose: 2 spray Carvedilol (Coreg) 6.25 mg PO BID [facility] Last Admin: 12/19/19 08:40 Dose: 6.25 mg Clonazepam (Klonopin) 0.5 mg PO BEDTIME [facility] Last Admin: 12/18/19 21:44 Dose: 0.5 mg Cyclobenzaprine HCl (Flexeril) 10 mg PO BID [facility] Last Admin: 12/19/19 08:41 Dose: 10 mg Enoxaparin Sodium (Lovenox) 30 mg SUBCUT Q24H [facility] Last Admin: 12/18/19 16:57 Dose: 30 mg Ferrous Sulfate (Ferrous Sulfate) 325 mg PO DAILY@0800 [facility] Last Admin: 12/19/19 08:40 Dose: 325 mg Hydralazine HCl (Apresoline) 25 mg PO QID [facility] Last Admin: 12/19/19 10:10 Dose: 25 mg Cefazolin Sodium/Dextrose 1 gm (/ Premix) 50 mls @ 100 mls/hr IV Q12H [facility] Lactobacillus Rhamnosus (Culturelle) 1 cap PO BID [facility] Last Admin: 12/19/19 08:41 Dose: 1 cap Multivitamins/Minerals (Thera M Plus) 1 tab PO DAILY [facility] Last Admin: 12/19/19 08:41 Dose: 1 tab (Tryptophan [L- Tryptophan] 2,000 Mg ) 2,000 mg PO BEDTIME PRN PRN Reason: Sleep (Ubidecarenone [Coq- (10] 1 Tab)) 1 tab PO DAILY [facility] Last Admin: 12/19/19 08:42 Dose: Not Given Pantoprazole Sodium (Protonix) 40 mg PO BID [facility] Last Admin: 12/19/19 08:42 Dose: 40 mg Pravastatin Sodium (Pravachol) 20 mg PO DAILY [facility] Last Admin: 12/19/19 08:42 Dose: 20 mg Prednisone (Prednisone) 20 mg PO DAILY@0800 [facility] Last Admin: 12/19/19 08:40 Dose: 20 mg Fluticasone/Salmeterol (Fluticasone-Salmeterol 232-14 Mcg Powder Inha) 1 puff INH BIDRT [facility] Last Admin: 12/19/19 07:13 Dose: 1 puff Sodium Chloride (Saline Flush) 10 ml FLUSH ASDIRECTED PRN PRN Reason: Keep Vein Open Last Admin: 12/17/19 21:49 Dose: 10 ml Discontinued Medications Buspirone HCl (Buspar) 10 mg PO QID [facility] Last Admin: 12/18/19 17:15 Dose: Not Given Calcitonin [place] (Miacalcin) 0 units .XX DAILY [facility] Furosemide (Lasix) 40 mg IVPUSH NOW ONE Stop: 12/19/19 13:01 Last Admin: 12/19/19 14:38 Dose: 40 mg Ceftriaxone Sodium 1 gm/ (Sodium Chloride) 50 mls @ 100 mls/hr IV ONETIME ONE Stop: 12/17/19 22:42 Last Admin: 12/17/19 22:26 Dose: 100 mls/hr Sodium Chloride (Normal Saline) 1,000 mls @ 125 mls/hr IV ASDIRECTED [facility] Last Admin: 12/18/19 07:13 Dose: 125 mls/hr Ceftriaxone Sodium 1 gm/ (Sodium Chloride) 50 mls @ 100 mls/hr IV Q24H [facility] Cefazolin Sodium/Dextrose 1 gm (/ Premix) 50 mls @ 100 mls/hr IV Q12H [facility] Stop: 12/18/19 14:00 Last Admin: 12/18/19 11:49 Dose: 100 mls/hr Cefazolin Sodium/Dextrose 1 gm (/ Premix) 50 mls @ 100 mls/hr IV Q8H [facility] Stop: 12/19/19 13:30 Last Admin: 12/19/19 11:27 Dose: 100 mls/hr - Exam Quality Assessment: DVT Prophylaxis General: Alert, Oriented, Cooperative, Mild Distress Lungs: Clear to Auscultation, Normal Respiratory Effort Cardiovascular: Regular Rate, Regular Rhythm, No Murmurs GI/Abdominal Exam: Soft, Non-Tender, No Organomegaly, No Distention Extremities: Other (Erythema swelling and tenderness right ankle and right thumb ) Sepsis Event Note - Evaluation Sepsis Screening Result: Sepsis Risk - Focused Exam Vital Signs: Vital Signs Temp Pulse Pulse Resp BP BP Pulse Ox 12/19/19 15:04 97.1 F 78 22 H 132/74 98 12/19/19 11:41 95.9 F L 70 24 H 106/62 100 12/19/19 10:10 101/63 12/19/19 08:40 82 101/63 12/19/19 07:37 97.3 F 81 24 H 101/63 96 12/19/19 05:14 123/70 Date Exam was Performed: 12/19/19 Time Exam was Performed: 15:15 - Problem List Review Problem List Initiated/Reviewed/Updated: Yes - My Orders Last 24 Hours: My Active Orders 12/18/19 16:00 Enoxaparin [Lovenox] 30 mg SUBCUT Q24H 12/20/19 00:05 ceFAZolin [Ancef] 1 gm Premix Bag 1 bag IV Q12H 12/20/19 05:00 BASIC METABOLIC PANEL,BMP [CHEM] Timed CBC WITH AUTO DIFF [HEME] Timed - Plan Plan:: ASSESSMENT AND PLAN CELLULITIS RIGHT ANKLE-longstanding history of rheumatoid arthritis. Blood cell count has improved but still remains elevated. Blood cultures growing gram -positive cocci, final ID and sensitivities pending. MRI showed no evidence of joint infection or osteomyelitis -Pubic follow-up per Dr. Duncan -Cultures pending -Continue cefazolin 1 g IV every 8 hours HISTORY OF RHEUMATOID ARTHRITIS -Continue outpatient medications CHRONIC KIDNEY DISEASE STAGE III -Closely monitor urine output and renal function during hospital stay MAINTENANCE ISSUES -DVT prophylaxis; Lovenox 30 mg subcu daily -GI prophylaxis; continue outpatient PPI therapy -[place] catheter; not indicated -Nutrition; regular diet -Nicotine dependence; not required CODE STATUS-full code ADMISSION STATUS-patient will be admitted to inpatient status, expect at least a 2 night hospital stay for evaluation and management of problems as outlined above. At the time of this admission I do not reasonably expected evaluation and management of this problem will require more than a 96 hour hospital stay. DISPOSITION-anticipate discharge to home after the hospital stay. PRIMARY CARE PROVIDER-Dr. Dewey
[2019-12-19] MEDS ORDERED: oxyCODONE 5 MG Tab PO PRN (15:22)
[2019-12-19] MEDS: Enoxaparin 30 MG/0.3 ML Syringe SUBCUT SCH (16:57)
[2019-12-19] MEDS: Acetaminophen 325 MG Tab PO SCH ×2 (17:00→23:48)
[2019-12-19] MEDS: ClonazePAM 0.5 MG Tab PO SCH (21:10)
[2019-12-20] MEDS ORDERED: ceFAZolin 1 GM in Premix Bag 1 BAG IV SCH (00:05)
[2019-12-20] MEDS: busPIRone 5 MG Tab PO SCH ×4 (05:23→21:01)
[2019-12-20] MEDS: Acetaminophen 325 MG Tab PO SCH ×4 (05:23→23:41)
[2019-12-20] MEDS: hydrALAZINE 25 MG Tab PO SCH ×4 (05:24→21:02)
[2019-12-20] MEDS: Fluticasone-Salmeterol 232-14 MCG Powder Inhalent INH SCH ×2 (06:58→21:00)
[2019-12-20] MEDS ORDERED: Vancomycin 1 GM SDV IV SCH (07:00)
[2019-12-20] MEDS: Cyclobenzaprine 10 MG Tab PO SCH ×2 (08:04→21:00)
[2019-12-20] MEDS: Calcitonin (Salmon) Nasal Spray 3.7 ML Bottle NAS SCH (08:04)
[2019-12-20] MEDS: predniSONE 20 MG Tab PO SCH (08:05)
[2019-12-20] MEDS: Pravastatin 20 MG Tab PO SCH (08:05)
[2019-12-20] MEDS: Carvedilol 6.25 MG Tab PO SCH ×2 (08:05→20:58)
[2019-12-20] MEDS: Ferrous Sulfate 325 MG Tab PO SCH (08:05)
[2019-12-20] MEDS: Pantoprazole 40 MG Tab.CR PO SCH ×2 (08:05→21:01)
[2019-12-20] MEDS: Multivitamins with Iron/Calcium/Folic Acid/Minerals Tab PO SCH (08:05)
[2019-12-20] MEDS: Lactobacillus Rhamnosus GG (Probiotic) Cap PO SCH ×2 (08:06→20:59)
--- NOTE | 2019-12-20 11:46 | PCM.PN ---
- General Info Date of Service: 12/20/19 Subjective Update: Ms. Singleton has been stable since yesterday, modest improvement in the right ankle. Blood cultures have grown out MRSA and she has been switched to IV antibiotic therapy with vancomycin. Functional Status: Reports: Pain Controlled, Tolerating Diet, Urinating - Review of Systems General: Reports: Weakness. Denies: Fever, Chills Pulmonary: Reports: No Symptoms Cardiovascular: Reports: No Symptoms Gastrointestinal: Reports: No Symptoms Musculoskeletal: Reports: Other (Swelling pain and erythema right ankle) - Patient Data Vitals - Most Recent: Last Vital Signs Temp 96.7 F L 12/20/19 07:33 Pulse 81 12/20/19 08:05 Resp 16 12/20/19 07:33 BP 109/66 12/20/19 09:14 Pulse Ox 95 12/20/19 07:33 Weight - Most Recent: 101 lb I&O - Last 24 Hours: Intake & Output 12/19/19 12/20/19 12/20/19 22:59 06:59 14:59 Intake Total 450 290 250 Output Total 1625 800 300 Balance -1175 -510 -50 Lab Results Last 24 Hours: Laboratory Results - last 24 hr 12/20/19 12/20/19 Range/Units 04:00 04:00 WBC 20.3 H (4.5-11.0) K/uL RBC 3.63 (3.30-5.50) M/uL Hgb 11.8 L (12.0-15.0) g/dL Hct 38.4 (36.0-48.0) % MCV 106 H (80-98) fL MCH 33 H (27-31) pg MCHC 31 L (32-36) % Plt Count 337 (150-400) K/uL Add Manual Diff Yes Neutrophils % (Manual) 83 H (36-66) % Band Neutrophils % 4 L (5-11) % Lymphocytes % (Manual) 7 L (24-44) % Monocytes % (Manual) 6 (2-6) % Sodium 144 (140-148) mmol/L Potassium 4.1 (3.6-5.2) mmol/L Chloride 107 (100-108) mmol/L Carbon Dioxide 28 (21-32) mmol/L Anion Gap 8.9 (5.0-14.0) mmol/L BUN 54 H (7-18) mg/dL Creatinine 2.0 H (0.6-1.0) mg/dL Est Cr Clr Drug Dosing 18.66 mL/min Estimated GFR (MDRD) 25 L (>60) Glucose 96 (74-106) mg/dL Calcium 7.7 L (8.5-10.1) mg/dL Franco Results Last 24 Hours: Microbiology 12/17/19 21:33 Aerobic Blood Culture - Final Blood - Venous - Iv Start (Mrsa) Staphylococcus Aureus Anaerobic Blood Culture - Final (Mrsa) Staphylococcus Aureus 12/17/19 22:05 Aerobic Blood Culture - Final Blood - Arm, Left (Mrsa) Staphylococcus Aureus Anaerobic Blood Culture - Preliminary NO GROWTH AFTER 2 DAYS Med Orders - Current: Current Medications Acetaminophen (Tylenol) 650 mg PO Q6H [facility] Last Admin: 12/20/19 05:23 Dose: 650 mg Amitriptyline HCl (Elavil) 150 mg PO BEDTIME [facility] Last Admin: 12/19/19 21:06 Dose: 150 mg Buspirone HCl (Buspar) 5 mg PO QID [facility] Last Admin: 12/20/19 09:14 Dose: 5 mg Calcitonin [place] (Miacalcin Nasal [place]) 0 ml JOHN DAILY [facility] Last Admin: 12/20/19 08:04 Dose: 2 spray Carvedilol (Coreg) 6.25 mg PO BID [facility] Last Admin: 12/20/19 08:05 Dose: 6.25 mg Clonazepam (Klonopin) 0.5 mg PO BEDTIME [facility] Last Admin: 12/19/19 21:10 Dose: 0.5 mg Cyclobenzaprine HCl (Flexeril) 10 mg PO BID [facility] Last Admin: 12/20/19 08:04 Dose: 10 mg Enoxaparin Sodium (Lovenox) 30 mg SUBCUT Q24H [facility] Last Admin: 12/19/19 16:57 Dose: 30 mg Ferrous Sulfate (Ferrous Sulfate) 325 mg PO DAILY@0800 [facility] Last Admin: 12/20/19 08:05 Dose: 325 mg Hydralazine HCl (Apresoline) 25 mg PO QID [facility] Last Admin: 12/20/19 09:14 Dose: 25 mg Vancomycin HCl 1 gm/ Sodium (Chloride) 250 mls @ 166.667 mls/hr IV Q48H [facility] Last Admin: 12/20/19 08:03 Dose: 166.667 mls/hr Lactobacillus Rhamnosus (Culturelle) 1 cap PO BID [facility] Last Admin: 12/20/19 08:06 Dose: 1 cap Multivitamins/Minerals (Thera M Plus) 1 tab PO DAILY [facility] Last Admin: 12/20/19 08:05 Dose: 1 tab (Tryptophan [L- Tryptophan] 2,000 Mg ) 2,000 mg PO BEDTIME PRN PRN Reason: Sleep (Ubidecarenone [Coq- (10] 1 Tab)) 1 tab PO DAILY [facility] Last Admin: 12/20/19 08:06 Dose: Not Given Oxycodone HCl (Oxycodone) 5 mg PO Q4H PRN PRN Reason: Pain Pantoprazole Sodium (Protonix) 40 mg PO BID [facility] Last Admin: 12/20/19 08:05 Dose: 40 mg Pravastatin Sodium (Pravachol) 20 mg PO DAILY [facility] Last Admin: 12/20/19 08:05 Dose: 20 mg Prednisone (Prednisone) 20 mg PO DAILY@0800 [facility] Last Admin: 12/20/19 08:05 Dose: 20 mg Fluticasone/Salmeterol (Fluticasone-Salmeterol 232-14 Mcg Powder Inha) 1 puff INH BIDRT [facility] Last Admin: 12/20/19 06:58 Dose: 1 puff Sodium Chloride (Saline Flush) 10 ml FLUSH ASDIRECTED PRN PRN Reason: Keep Vein Open Last Admin: 12/17/19 21:49 Dose: 10 ml Discontinued Medications Acetaminophen (Tylenol) 650 mg PO Q4H PRN PRN Reason: Pain (Mild 1-3)/fever Last Admin: 12/19/19 11:43 Dose: 650 mg Buspirone HCl (Buspar) 10 mg PO QID [facility] Last Admin: 12/18/19 17:15 Dose: Not Given Calcitonin [place] (Miacalcin) 0 units .XX DAILY [facility] Furosemide (Lasix) 40 mg IVPUSH NOW ONE Stop: 12/19/19 13:01 Last Admin: 12/19/19 14:38 Dose: 40 mg Ceftriaxone Sodium 1 gm/ (Sodium Chloride) 50 mls @ 100 mls/hr IV ONETIME ONE Stop: 12/17/19 22:42 Last Admin: 12/17/19 22:26 Dose: 100 mls/hr Sodium Chloride (Normal Saline) 1,000 mls @ 125 mls/hr IV ASDIRECTED [facility] Last Admin: 12/18/19 07:13 Dose: 125 mls/hr Ceftriaxone Sodium 1 gm/ (Sodium Chloride) 50 mls @ 100 mls/hr IV Q24H [facility] Cefazolin Sodium/Dextrose 1 gm (/ Premix) 50 mls @ 100 mls/hr IV Q12H [facility] Stop: 12/18/19 14:00 Last Admin: 12/18/19 11:49 Dose: 100 mls/hr Cefazolin Sodium/Dextrose 1 gm (/ Premix) 50 mls @ 100 mls/hr IV Q8H [facility] Stop: 12/19/19 13:30 Last Admin: 12/19/19 11:27 Dose: 100 mls/hr Cefazolin Sodium/Dextrose 1 gm (/ Premix) 50 mls @ 100 mls/hr IV Q12H [facility] Last Admin: 12/19/19 23:52 Dose: 100 mls/hr Vancomycin HCl 1.25 gm/ Sodium (Chloride) 250 mls @ 166.667 mls/hr IV ONETIME ONE Stop: 12/20/19 08:29 Vancomycin HCl (Vancomycin) 0 gm IV .PHARMACY TO DOSE [facility] Stop: 12/20/19 08:00 - Exam Quality Assessment: DVT Prophylaxis General: Alert, Oriented, Cooperative, Mild Distress Lungs: Clear to Auscultation, Normal Respiratory Effort Cardiovascular: Regular Rate, Regular Rhythm, No Murmurs GI/Abdominal Exam: Soft, Non-Tender, No Organomegaly, No Distention Extremities: Other (Swelling and erythema right ankle) Sepsis Event Note - Evaluation Sepsis Screening Result: Sepsis Risk - Focused Exam Vital Signs: Vital Signs Temp Pulse Pulse Resp BP BP Pulse Ox 12/20/19 09:14 109/66 12/20/19 08:05 81 109/66 12/20/19 07:33 96.7 F L 81 16 109/66 95 12/20/19 05:24 106/59 L 12/20/19 03:00 97.2 F 90 16 146/77 H 96 12/19/19 23:45 97.2 F 88 16 126/66 96 Date Exam was Performed: 12/20/19 Time Exam was Performed: 11:42 - Problem List Review Problem List Initiated/Reviewed/Updated: Yes - My Orders Last 24 Hours: My Active Orders 12/19/19 15:22 oxyCODONE 5 mg PO Q4H PRN 12/19/19 18:00 Acetaminophen [Tylenol] 650 mg PO Q6H 12/20/19 06:18 Dietary Supplements [RC] BIDMEALS 12/20/19 11:45 Docusate Sodium [Colace] 100 mg PO BID 12/21/19 05:00 BASIC METABOLIC PANEL,BMP [CHEM] Timed CBC WITH AUTO DIFF [HEME] Timed - Plan Plan:: ASSESSMENT AND PLAN CELLULITIS RIGHT ANKLE-longstanding history of rheumatoid arthritis. Blood cell count has improved but still remains elevated. Blood cultures growing gram -positive cocci, final ID and sensitivities pending. MRI showed no evidence of joint infection or osteomyelitis. Cultures are growing out MRSA -Orthopedic follow-up per Dr. Duncan -Cultures pending -IV vancomycin, plan for at least 10 days of IV antibiotic therapy HISTORY OF RHEUMATOID ARTHRITIS -Continue outpatient medications CHRONIC KIDNEY DISEASE STAGE III -Closely monitor urine output and renal function during hospital stay MAINTENANCE ISSUES -DVT prophylaxis; Lovenox 30 mg subcu daily -GI prophylaxis; continue outpatient PPI therapy -[place] catheter; not indicated -Nutrition; regular diet -Nicotine dependence; not required CODE STATUS-full code ADMISSION STATUS-patient will be admitted to inpatient status, expect at least a 2 night hospital stay for evaluation and management of problems as outlined above. At the time of this admission I do not reasonably expected evaluation and management of this problem will require more than a 96 hour hospital stay. DISPOSITION-anticipate discharge to home after the hospital stay. PRIMARY CARE PROVIDER-Dr. Dewey
[2019-12-20] MEDS: Docusate Sodium 100 MG Cap PO SCH ×2 (12:13→20:56)
--- NOTE | 2019-12-20 13:46 | PCM.SURGPN ---
- General Info Date of Service: 12/19/19 Functional Status: Reports: Tolerating Diet, Ambulating - Review of Systems Musculoskeletal: Reports: Hand Pain (right thumb), Foot Pain (right ankle) - Patient Data Vitals - Most Recent: Last Vital Signs Temp 35.8 C L 12/20/19 11:55 Pulse 76 12/20/19 11:55 Resp 16 12/20/19 11:55 BP 107/68 12/20/19 11:55 Pulse Ox 96 12/20/19 11:55 Weight - Most Recent: 45.813 kg I&O - Last 24 Hours: Intake & Output 12/19/19 12/20/19 12/20/19 22:59 06:59 14:59 Intake Total 450 290 370 Output Total 1625 800 450 Balance -1175 -510 -80 Lab Results Last 24 Hrs: Laboratory Results - last 24 hr 12/20/19 12/20/19 Range/Units 04:00 04:00 WBC 20.3 H (4.5-11.0) K/uL RBC 3.63 (3.30-5.50) M/uL Hgb 11.8 L (12.0-15.0) g/dL Hct 38.4 (36.0-48.0) % MCV 106 H (80-98) fL MCH 33 H (27-31) pg MCHC 31 L (32-36) % Plt Count 337 (150-400) K/uL Add Manual Diff Yes Neutrophils % (Manual) 83 H (36-66) % Band Neutrophils % 4 L (5-11) % Lymphocytes % (Manual) 7 L (24-44) % Monocytes % (Manual) 6 (2-6) % Sodium 144 (140-148) mmol/L Potassium 4.1 (3.6-5.2) mmol/L Chloride 107 (100-108) mmol/L Carbon Dioxide 28 (21-32) mmol/L Anion Gap 8.9 (5.0-14.0) mmol/L BUN 54 H (7-18) mg/dL Creatinine 2.0 H (0.6-1.0) mg/dL Est Cr Clr Drug Dosing 18.66 mL/min Estimated GFR (MDRD) 25 L (>60) Glucose 96 (74-106) mg/dL Calcium 7.7 L (8.5-10.1) mg/dL Franco Results Last 24 Hrs: Microbiology 12/17/19 21:33 Aerobic Blood Culture - Final Blood - Venous - Iv Start (Mrsa) Staphylococcus Aureus Anaerobic Blood Culture - Final (Mrsa) Staphylococcus Aureus 12/17/19 22:05 Aerobic Blood Culture - Final Blood - Arm, Left (Mrsa) Staphylococcus Aureus Anaerobic Blood Culture - Preliminary NO GROWTH AFTER 2 DAYS Med Orders - Current: Current Medications Acetaminophen (Tylenol) 650 mg PO Q6H [facility] Last Admin: 12/20/19 12:13 Dose: 650 mg Amitriptyline HCl (Elavil) 150 mg PO BEDTIME [facility] Last Admin: 12/19/19 21:06 Dose: 150 mg Buspirone HCl (Buspar) 5 mg PO QID [facility] Last Admin: 12/20/19 09:14 Dose: 5 mg Calcitonin [place] (Miacalcin Nasal [place]) 0 ml JOHN DAILY [facility] Last Admin: 12/20/19 08:04 Dose: 2 spray Carvedilol (Coreg) 6.25 mg PO BID [facility] Last Admin: 12/20/19 08:05 Dose: 6.25 mg Clonazepam (Klonopin) 0.5 mg PO BEDTIME [facility] Last Admin: 12/19/19 21:10 Dose: 0.5 mg Cyclobenzaprine HCl (Flexeril) 10 mg PO BID [facility] Last Admin: 12/20/19 08:04 Dose: 10 mg Docusate Sodium (Colace) 100 mg PO BID [facility] Last Admin: 12/20/19 12:13 Dose: 100 mg Enoxaparin Sodium (Lovenox) 30 mg SUBCUT Q24H [facility] Last Admin: 12/19/19 16:57 Dose: 30 mg Ferrous Sulfate (Ferrous Sulfate) 325 mg PO DAILY@0800 [facility] Last Admin: 12/20/19 08:05 Dose: 325 mg Hydralazine HCl (Apresoline) 25 mg PO QID [facility] Last Admin: 12/20/19 09:14 Dose: 25 mg Vancomycin HCl 1 gm/ Sodium (Chloride) 250 mls @ 166.667 mls/hr IV Q48H [facility] Last Admin: 12/20/19 08:03 Dose: 166.667 mls/hr Lactobacillus Rhamnosus (Culturelle) 1 cap PO BID [facility] Last Admin: 12/20/19 08:06 Dose: 1 cap Multivitamins/Minerals (Thera M Plus) 1 tab PO DAILY [facility] Last Admin: 12/20/19 08:05 Dose: 1 tab (Tryptophan [L- Tryptophan] 2,000 Mg ) 2,000 mg PO BEDTIME PRN PRN Reason: Sleep (Ubidecarenone [Coq- (10] 1 Tab)) 1 tab PO DAILY [facility] Last Admin: 12/20/19 08:06 Dose: Not Given Oxycodone HCl (Oxycodone) 5 mg PO Q4H PRN PRN Reason: Pain Pantoprazole Sodium (Protonix) 40 mg PO BID [facility] Last Admin: 12/20/19 08:05 Dose: 40 mg Pravastatin Sodium (Pravachol) 20 mg PO DAILY [facility] Last Admin: 12/20/19 08:05 Dose: 20 mg Prednisone (Prednisone) 20 mg PO DAILY@0800 [facility] Last Admin: 12/20/19 08:05 Dose: 20 mg Fluticasone/Salmeterol (Fluticasone-Salmeterol 232-14 Mcg Powder Inha) 1 puff INH BIDRT [facility] Last Admin: 12/20/19 06:58 Dose: 1 puff Sodium Chloride (Saline Flush) 10 ml FLUSH ASDIRECTED PRN PRN Reason: Keep Vein Open Last Admin: 12/17/19 21:49 Dose: 10 ml Discontinued Medications Acetaminophen (Tylenol) 650 mg PO Q4H PRN PRN Reason: Pain (Mild 1-3)/fever Last Admin: 12/19/19 11:43 Dose: 650 mg Buspirone HCl (Buspar) 10 mg PO QID [facility] Last Admin: 12/18/19 17:15 Dose: Not Given Calcitonin [place] (Miacalcin) 0 units .XX DAILY [facility] Furosemide (Lasix) 40 mg IVPUSH NOW ONE Stop: 12/19/19 13:01 Last Admin: 12/19/19 14:38 Dose: 40 mg Ceftriaxone Sodium 1 gm/ (Sodium Chloride) 50 mls @ 100 mls/hr IV ONETIME ONE Stop: 12/17/19 22:42 Last Admin: 12/17/19 22:26 Dose: 100 mls/hr Sodium Chloride (Normal Saline) 1,000 mls @ 125 mls/hr IV ASDIRECTED [facility] Last Admin: 12/18/19 07:13 Dose: 125 mls/hr Ceftriaxone Sodium 1 gm/ (Sodium Chloride) 50 mls @ 100 mls/hr IV Q24H [facility] Cefazolin Sodium/Dextrose 1 gm (/ Premix) 50 mls @ 100 mls/hr IV Q12H [facility] Stop: 12/18/19 14:00 Last Admin: 12/18/19 11:49 Dose: 100 mls/hr Cefazolin Sodium/Dextrose 1 gm (/ Premix) 50 mls @ 100 mls/hr IV Q8H [facility] Stop: 12/19/19 13:30 Last Admin: 12/19/19 11:27 Dose: 100 mls/hr Cefazolin Sodium/Dextrose 1 gm (/ Premix) 50 mls @ 100 mls/hr IV Q12H [facility] Last Admin: 12/19/19 23:52 Dose: 100 mls/hr Vancomycin HCl 1.25 gm/ Sodium (Chloride) 250 mls @ 166.667 mls/hr IV ONETIME ONE Stop: 12/20/19 08:29 Vancomycin HCl (Vancomycin) 0 gm IV .PHARMACY TO DOSE [facility] Stop: 12/20/19 08:00 - Exam General: Alert, Oriented Extremities: Joint Swelling, Limited Range of Motion, Increased Warmth, Redness , Other (Improvement in weight bearing and ROM, thumb IP joint still painful) Sepsis Event Note - Evaluation Sepsis Screening Result: Sepsis Risk - Focused Exam Vital Signs: Vital Signs Temp Pulse Pulse Resp BP BP Pulse Ox 12/20/19 11:55 35.8 C L 76 16 107/68 96 12/20/19 09:14 109/66 12/20/19 08:05 81 109/66 12/20/19 07:33 35.9 C L 81 16 109/66 95 12/20/19 05:24 106/59 L 12/20/19 03:00 36.2 C 90 16 146/77 H 96 Date Exam was Performed: 12/20/19 Time Exam was Performed: 13:41 - Problem List & Annotations (1) Cellulitis of right lower extremity SNOMED Code(s): 141034517 Code(s): L03.115 - CELLULITIS OF RIGHT LOWER LIMB Status: Acute Current Visit: Yes - Problem List Review Problem List Initiated/Reviewed/Updated: Yes - My Orders Last 24 Hours: Active Orders 24 hr Category Date Time Status Dietary Supplements [RC] BIDMEALS Care 12/20/19 06:18 Active Fingers Thumb Rt F5 [CR] Routine Exams 12/20/19 13:39 Ordered BASIC METABOLIC PANEL,BMP [CHEM] Timed Lab 12/21/19 05:00 Ordered CBC WITH AUTO DIFF [HEME] Timed Lab 12/21/19 05:00 Ordered Acetaminophen [Tylenol] Med 12/19/19 18:00 Active 650 mg PO Q6H Docusate Sodium [Colace] Med 12/20/19 11:45 Active 100 mg PO BID Vancomycin 1 gm Med 12/20/19 08:00 Active Sodium Chloride 0.9% [Normal Saline] 250 ml IV Q48H oxyCODONE Med 12/19/19 15:22 Active 5 mg PO Q4H PRN Medication Orders Acetaminophen (Tylenol) 650 mg PO Q6H [facility] Last Admin: 12/20/19 12:13 Dose: 650 mg Admin: 12/20/19 05:23 Dose: 650 mg Admin: 12/19/19 23:48 Dose: 650 mg Admin: 12/19/19 17:00 Dose: 650 mg Amitriptyline HCl (Elavil) 150 mg PO BEDTIME [facility] Last Admin: 12/19/19 21:06 Dose: 150 mg Admin: 12/18/19 21:27 Dose: 150 mg Buspirone HCl (Buspar) 5 mg PO QID [facility] Last Admin: 12/20/19 09:14 Dose: 5 mg Admin: 12/20/19 05:23 Dose: 5 mg Admin: 12/19/19 21:08 Dose: 5 mg Admin: 12/19/19 16:57 Dose: 5 mg Admin: 12/19/19 10:09 Dose: 5 mg Admin: 12/19/19 05:14 Dose: 5 mg Admin: 12/18/19 21:45 Dose: 5 mg Admin: 12/18/19 16:57 Dose: 5 mg Admin: 12/18/19 12:29 Dose: 5 mg Calcitonin [place] (Miacalcin Nasal [place]) 0 ml JOHN DAILY [facility] Last Admin: 12/20/19 08:04 Dose: 2 spray Admin: 12/19/19 08:41 Dose: 2 spray Admin: 12/18/19 09:29 Dose: 1 spray Carvedilol (Coreg) 6.25 mg PO BID [facility] Last Admin: 12/20/19 08:05 Dose: 6.25 mg Admin: 12/19/19 21:04 Dose: 6.25 mg Admin: 12/19/19 08:40 Dose: 6.25 mg Admin: 12/18/19 21:31 Dose: 6.25 mg Admin: 12/18/19 09:29 Dose: 6.25 mg Clonazepam (Klonopin) 0.5 mg PO BEDTIME [facility] Last Admin: 12/19/19 21:10 Dose: 0.5 mg Admin: 12/18/19 21:44 Dose: 0.5 mg Cyclobenzaprine HCl (Flexeril) 10 mg PO BID [facility] Last Admin: 12/20/19 08:04 Dose: 10 mg Admin: 12/19/19 21:07 Dose: 10 mg Admin: 12/19/19 08:41 Dose: 10 mg Admin: 12/18/19 21:30 Dose: 10 mg Admin: 12/18/19 09:29 Dose: 10 mg Docusate Sodium (Colace) 100 mg PO BID [facility] Last Admin: 12/20/19 12:13 Dose: 100 mg Enoxaparin Sodium (Lovenox) 30 mg SUBCUT Q24H [facility] Last Admin: 12/19/19 16:57 Dose: 30 mg Admin: 12/18/19 16:57 Dose: 30 mg Ferrous Sulfate (Ferrous Sulfate) 325 mg PO DAILY@0800 [facility] Last Admin: 12/20/19 08:05 Dose: 325 mg Admin: 12/19/19 08:40 Dose: 325 mg Admin: 12/18/19 09:28 Dose: 325 mg Hydralazine HCl (Apresoline) 25 mg PO QID [facility] Last Admin: 12/20/19 09:14 Dose: 25 mg Admin: 12/20/19 05:24 Dose: 25 mg Admin: 12/19/19 21:11 Dose: 25 mg Admin: 12/19/19 16:57 Dose: 25 mg Admin: 12/19/19 10:10 Dose: 25 mg Admin: 12/19/19 05:14 Dose: 25 mg Admin: 12/18/19 21:30 Dose: 25 mg Admin: 12/18/19 16:57 Dose: 25 mg Admin: 12/18/19 12:24 Dose: Not Given Admin: 12/18/19 09:36 Dose: Vancomycin HCl 1 gm/ Sodium (Chloride) 250 mls @ 166.667 mls/hr IV Q48H [facility] Last Admin: 12/20/19 08:03 Dose: 166.667 mls/hr Lactobacillus Rhamnosus (Culturelle) 1 cap PO BID [facility] Last Admin: 12/20/19 08:06 Dose: 1 cap Admin: 12/19/19 21:06 Dose: 1 cap Admin: 12/19/19 08:41 Dose: 1 cap Admin: 12/18/19 21:30 Dose: 1 cap Admin: 12/18/19 11:49 Dose: 1 cap Multivitamins/Minerals (Thera M Plus) 1 tab PO DAILY [facility] Last Admin: 12/20/19 08:05 Dose: 1 tab Admin: 12/19/19 08:41 Dose: 1 tab Admin: 12/18/19 09:29 Dose: 1 tab (Tryptophan [L- Tryptophan] 2,000 Mg ) 2,000 mg PO BEDTIME PRN PRN Reason: Sleep (Ubidecarenone [Coq- (10] 1 Tab)) 1 tab PO DAILY [facility] Last Admin: 12/20/19 08:06 Dose: Not Given Admin: 12/19/19 08:42 Dose: Not Given Admin: 12/18/19 09:35 Dose: Oxycodone HCl (Oxycodone) 5 mg PO Q4H PRN PRN Reason: Pain Pantoprazole Sodium (Protonix) 40 mg PO BID [facility] Last Admin: 12/20/19 08:05 Dose: 40 mg Admin: 12/19/19 21:08 Dose: 40 mg Admin: 12/19/19 08:42 Dose: 40 mg Admin: 12/18/19 21:32 Dose: 40 mg Admin: 12/18/19 09:29 Dose: 40 mg Pravastatin Sodium (Pravachol) 20 mg PO DAILY [facility] Last Admin: 12/20/19 08:05 Dose: 20 mg Admin: 12/19/19 08:42 Dose: 20 mg Admin: 12/18/19 09:29 Dose: 20 mg Prednisone (Prednisone) 20 mg PO DAILY@0800 [facility] Last Admin: 12/20/19 08:05 Dose: 20 mg Admin: 12/19/19 08:40 Dose: 20 mg Admin: 12/18/19 09:28 Dose: 20 mg Fluticasone/Salmeterol (Fluticasone-Salmeterol 232-14 Mcg Powder Inha) 1 puff INH BIDRT [facility] Last Admin: 12/20/19 06:58 Dose: 1 puff Admin: 12/19/19 21:07 Dose: 1 puff Admin: 12/19/19 07:13 Dose: 1 puff Admin: 12/18/19 21:44 Dose: 1 puff Admin: 12/18/19 08:29 Dose: 1 puff Sodium Chloride (Saline Flush) 10 ml FLUSH ASDIRECTED PRN PRN Reason: Keep Vein Open Last Admin: 12/17/19 21:49 Dose: 10 ml - Assessment Assessment (Free Text/Narrative):: Some improvement, Ankle ROM better and less painful, she has been able to weight bear today with walker - Plan Plan (Free Text/Narrative):: Continue antibiotic, no plans for surgical intervention at this point, will check x-ray of right thumb
--- NOTE | 2019-12-20 14:37 | CR ---
Fingers Thumb Rt F5 CLINICAL HISTORY: Pain and swelling FINDINGS: There is moderate soft tissue swelling involving the mid to distal thumb. There is very severe degenerative change in the interphalangeal joint. There are some periarticular calcifications or ossifications. No there appears to be some periarticular erosion in the periarticular proximal phalanx IMPRESSION: Significant soft tissue swelling and advanced degenerative changes in the interphalangeal joint of the thumb. Configuration is most likely secondary to gout. There are other arthritides that can have some overlap in findings with these tend to be multicentric. Other joints are not imaged. Clinical correlation is necessary.
[2019-12-20] MEDS: Enoxaparin 30 MG/0.3 ML Syringe SUBCUT SCH (15:21)
[2019-12-20] MEDS: ClonazePAM 0.5 MG Tab PO SCH (21:01)
[2019-12-21] MEDS: hydrALAZINE 25 MG Tab PO SCH ×4 (05:34→21:04)
[2019-12-21] MEDS: busPIRone 5 MG Tab PO SCH ×4 (05:34→21:04)
[2019-12-21] MEDS: Acetaminophen 325 MG Tab PO SCH ×4 (05:35→23:54)
[2019-12-21] MEDS: Fluticasone-Salmeterol 232-14 MCG Powder Inhalent INH SCH ×2 (06:58→21:03)
[2019-12-21] MEDS: Docusate Sodium 100 MG Cap PO SCH ×2 (08:49→21:00)
[2019-12-21] MEDS: Ferrous Sulfate 325 MG Tab PO SCH (08:49)
[2019-12-21] MEDS: Multivitamins with Iron/Calcium/Folic Acid/Minerals Tab PO SCH (08:49)
[2019-12-21] MEDS: predniSONE 20 MG Tab PO SCH (08:49)
[2019-12-21] MEDS: Lactobacillus Rhamnosus GG (Probiotic) Cap PO SCH ×2 (08:51→21:02)
[2019-12-21] MEDS: Calcitonin (Salmon) Nasal Spray 3.7 ML Bottle NAS SCH (08:51)
[2019-12-21] MEDS: Cyclobenzaprine 10 MG Tab PO SCH ×2 (08:51→21:03)
[2019-12-21] MEDS: Pantoprazole 40 MG Tab.CR PO SCH ×2 (08:52→21:03)
[2019-12-21] MEDS: Pravastatin 20 MG Tab PO SCH (08:52)
[2019-12-21] MEDS: Doxycycline 100 MG in Sodium Chloride 0.9% 100 ML IV SCH ×2 (10:13→21:04)
[2019-12-21] MEDS: Carvedilol 6.25 MG Tab PO SCH ×2 (10:38→21:01)
--- NOTE | 2019-12-21 12:54 | PCM.PN ---
- General Info Date of Service: 12/21/19 Subjective Update: Ms. Singleton has noticed further improvement over the last 24 hours with less swelling and tenderness in her right ankle. Right thumb is also improved with less swelling of the hand and thumb and less tenderness. She is now able to ambulate short distances with use of her walker. Functional Status: Reports: Tolerating Diet, Ambulating, Urinating - Review of Systems General: Reports: Weakness. Denies: Fever, Chills Pulmonary: Reports: No Symptoms Cardiovascular: Reports: No Symptoms Gastrointestinal: Reports: No Symptoms - Patient Data Vitals - Most Recent: Last Vital Signs Temp 97.3 F 12/21/19 08:47 Pulse 71 12/21/19 08:47 Resp 16 12/21/19 08:47 BP 97/55 L 12/21/19 10:25 Pulse Ox 100 12/21/19 08:47 Weight - Most Recent: 101 lb I&O - Last 24 Hours: Intake & Output 12/20/19 12/21/19 12/21/19 22:59 06:59 14:59 Intake Total 500 Output Total 400 200 Balance 500 -400 -200 Lab Results Last 24 Hours: Laboratory Results - last 24 hr 12/21/19 12/21/19 Range/Units 04:00 04:00 WBC 16.1 H (4.5-11.0) K/uL RBC 3.64 (3.30-5.50) M/uL Hgb 12.0 (12.0-15.0) g/dL Hct 38.0 (36.0-48.0) % MCV 104 H (80-98) fL MCH 33 H (27-31) pg MCHC 32 (32-36) % Plt Count 389 (150-400) K/uL Add Manual Diff Yes Neutrophils % (Manual) 80 H (36-66) % Band Neutrophils % 6 (5-11) % Lymphocytes % (Manual) 9 L (24-44) % Monocytes % (Manual) 5 (2-6) % Sodium 144 (140-148) mmol/L Potassium 4.6 (3.6-5.2) mmol/L Chloride 109 H (100-108) mmol/L Carbon Dioxide 28 (21-32) mmol/L Anion Gap 11.6 (5.0-14.0) mmol/L BUN 56 H (7-18) mg/dL Creatinine 2.0 H (0.6-1.0) mg/dL Est Cr Clr Drug Dosing 18.66 mL/min Estimated GFR (MDRD) 25 L (>60) Glucose 89 (74-106) mg/dL Calcium 8.4 L (8.5-10.1) mg/dL Franco Results Last 24 Hours: Microbiology 12/17/19 22:05 Aerobic Blood Culture - Final Blood - Arm, Left (Mrsa) Staphylococcus Aureus Anaerobic Blood Culture - Preliminary NO GROWTH AFTER 3 DAYS Med Orders - Current: Current Medications Acetaminophen (Tylenol) 650 mg PO Q6H [facility] Last Admin: 12/21/19 11:30 Dose: 650 mg Amitriptyline HCl (Elavil) 150 mg PO BEDTIME [facility] Last Admin: 12/20/19 20:59 Dose: 150 mg Buspirone HCl (Buspar) 5 mg PO QID [facility] Last Admin: 12/21/19 10:26 Dose: 5 mg Calcitonin [place] (Miacalcin Nasal [place]) 0 ml JOHN DAILY [facility] Last Admin: 12/21/19 08:51 Dose: 1 spray Carvedilol (Coreg) 6.25 mg PO BID [facility] Last Admin: 12/21/19 10:38 Dose: Not Given Clonazepam (Klonopin) 0.5 mg PO BEDTIME [facility] Last Admin: 12/20/19 21:01 Dose: 0.5 mg Cyclobenzaprine HCl (Flexeril) 10 mg PO BID [facility] Last Admin: 12/21/19 08:51 Dose: 10 mg Docusate Sodium (Colace) 100 mg PO BID [facility] Last Admin: 12/21/19 08:49 Dose: Not Given Enoxaparin Sodium (Lovenox) 30 mg SUBCUT Q24H [facility] Last Admin: 12/20/19 15:21 Dose: 30 mg Ferrous Sulfate (Ferrous Sulfate) 325 mg PO DAILY@0800 [facility] Last Admin: 12/21/19 08:49 Dose: 325 mg Hydralazine HCl (Apresoline) 25 mg PO QID [facility] Last Admin: 12/21/19 10:25 Dose: 25 mg Doxycycline Hyclate 100 mg/ (Sodium Chloride) 100 mls @ 100 mls/hr IV BID [facility] Last Admin: 12/21/19 10:13 Dose: 100 mls/hr Lactobacillus Rhamnosus (Culturelle) 1 cap PO BID [facility] Last Admin: 12/21/19 08:51 Dose: 1 cap Multivitamins/Minerals (Thera M Plus) 1 tab PO DAILY [facility] Last Admin: 12/21/19 08:49 Dose: 1 tab (Tryptophan [L- Tryptophan] 2,000 Mg ) 2,000 mg PO BEDTIME PRN PRN Reason: Sleep (Ubidecarenone [Coq- (10] 1 Tab)) 1 tab PO DAILY [facility] Last Admin: 12/21/19 08:52 Dose: Not Given Oxycodone HCl (Oxycodone) 5 mg PO Q4H PRN PRN Reason: Pain Pantoprazole Sodium (Protonix) 40 mg PO BID [facility] Last Admin: 12/21/19 08:52 Dose: 40 mg Pravastatin Sodium (Pravachol) 20 mg PO DAILY [facility] Last Admin: 12/21/19 08:52 Dose: 20 mg Prednisone (Prednisone) 20 mg PO DAILY@0800 [facility] Last Admin: 12/21/19 08:49 Dose: 20 mg Fluticasone/Salmeterol (Fluticasone-Salmeterol 232-14 Mcg Powder Inha) 1 puff INH BIDRT [facility] Last Admin: 12/21/19 06:58 Dose: 1 puff Sodium Chloride (Saline Flush) 10 ml FLUSH ASDIRECTED PRN PRN Reason: Keep Vein Open Last Admin: 12/17/19 21:49 Dose: 10 ml Discontinued Medications Acetaminophen (Tylenol) 650 mg PO Q4H PRN PRN Reason: Pain (Mild 1-3)/fever Last Admin: 12/19/19 11:43 Dose: 650 mg Buspirone HCl (Buspar) 10 mg PO QID [facility] Last Admin: 12/18/19 17:15 Dose: Not Given Calcitonin [place] (Miacalcin) 0 units .XX DAILY [facility] Furosemide (Lasix) 40 mg IVPUSH NOW ONE Stop: 12/19/19 13:01 Last Admin: 12/19/19 14:38 Dose: 40 mg Ceftriaxone Sodium 1 gm/ (Sodium Chloride) 50 mls @ 100 mls/hr IV ONETIME ONE Stop: 12/17/19 22:42 Last Admin: 12/17/19 22:26 Dose: 100 mls/hr Sodium Chloride (Normal Saline) 1,000 mls @ 125 mls/hr IV ASDIRECTED [facility] Last Admin: 12/18/19 07:13 Dose: 125 mls/hr Ceftriaxone Sodium 1 gm/ (Sodium Chloride) 50 mls @ 100 mls/hr IV Q24H [facility] Cefazolin Sodium/Dextrose 1 gm (/ Premix) 50 mls @ 100 mls/hr IV Q12H [facility] Stop: 12/18/19 14:00 Last Admin: 12/18/19 11:49 Dose: 100 mls/hr Cefazolin Sodium/Dextrose 1 gm (/ Premix) 50 mls @ 100 mls/hr IV Q8H [facility] Stop: 12/19/19 13:30 Last Admin: 12/19/19 11:27 Dose: 100 mls/hr Cefazolin Sodium/Dextrose 1 gm (/ Premix) 50 mls @ 100 mls/hr IV Q12H [facility] Last Admin: 12/19/19 23:52 Dose: 100 mls/hr Vancomycin HCl 1.25 gm/ Sodium (Chloride) 250 mls @ 166.667 mls/hr IV ONETIME ONE Stop: 12/20/19 08:29 Last Admin: 12/20/19 15:48 Dose: Not Given Vancomycin HCl 1 gm/ Sodium (Chloride) 250 mls @ 166.667 mls/hr IV Q48H [facility] Last Admin: 12/20/19 08:03 Dose: 166.667 mls/hr Vancomycin HCl (Vancomycin) 0 gm IV .PHARMACY TO DOSE [facility] Stop: 12/20/19 08:00 - Exam Quality Assessment: DVT Prophylaxis General: Alert, Oriented, Cooperative, Mild Distress Lungs: Clear to Auscultation, Normal Respiratory Effort Cardiovascular: Regular Rate, Regular Rhythm, No Murmurs GI/Abdominal Exam: Soft, Non-Tender, No Organomegaly, No Distention Extremities: Other (Erythema and swelling of the right ankle are improved but not resolved) Sepsis Event Note - Evaluation Sepsis Screening Result: No Definite Risk - Focused Exam Vital Signs: Vital Signs Temp Pulse Resp BP BP Pulse Ox 12/21/19 10:25 97/55 L 12/21/19 08:47 97.3 F 71 16 97/55 L 100 12/21/19 05:34 131/74 12/21/19 05:32 97.2 F 83 16 131/74 99 Date Exam was Performed: 12/21/19 Time Exam was Performed: 12:51 - Problem List Review Problem List Initiated/Reviewed/Updated: Yes - My Orders Last 24 Hours: My Active Orders 12/21/19 09:00 Doxycycline [Vibramycin] 100 mg Sodium Chloride 0.9% [Normal Saline] 100 ml IV BID 12/22/19 05:00 BASIC METABOLIC PANEL,BMP [CHEM] Timed CBC WITH AUTO DIFF [HEME] Timed - Plan Plan:: ASSESSMENT AND PLAN CELLULITIS RIGHT ANKLE-longstanding history of rheumatoid arthritis. White blood cell count has improved but still remains elevated. Cultures have grown out MRSA -Orthopedic follow-up per Dr. Duncan -Discontinue IV vancomycin -Doxycycline 100 mg IV every 12 hours HISTORY OF RHEUMATOID ARTHRITIS -Continue outpatient medications CHRONIC KIDNEY DISEASE STAGE IV -Closely monitor urine output and renal function during hospital stay MAINTENANCE ISSUES -DVT prophylaxis; Lovenox 30 mg subcu daily -GI prophylaxis; continue outpatient PPI therapy -Keenan catheter; not indicated -Nutrition; regular diet -Nicotine dependence; not required CODE STATUS-full code ADMISSION STATUS-patient will be admitted to inpatient status, expect at least a 2 night hospital stay for evaluation and management of problems as outlined above. At the time of this admission I do not reasonably expected evaluation and management of this problem will require more than a 96 hour hospital stay. DISPOSITION-anticipate discharge to home after the hospital stay. PRIMARY CARE PROVIDER-Dr. Dewey
[2019-12-21] MEDS: Enoxaparin 30 MG/0.3 ML Syringe SUBCUT SCH (16:10)
[2019-12-21] MEDS: ClonazePAM 0.5 MG Tab PO SCH (21:06)
[2019-12-22] MEDS: busPIRone 5 MG Tab PO SCH ×2 (05:06→09:27)
[2019-12-22] MEDS: hydrALAZINE 25 MG Tab PO SCH ×2 (05:06→09:27)
[2019-12-22] MEDS: Acetaminophen 325 MG Tab PO SCH (05:07)
[2019-12-22] MEDS: Fluticasone-Salmeterol 232-14 MCG Powder Inhalent INH SCH (07:36)
[2019-12-22] MEDS: Carvedilol 6.25 MG Tab PO SCH (08:12)
[2019-12-22] MEDS: Pantoprazole 40 MG Tab.CR PO SCH (08:13)
[2019-12-22] MEDS: Multivitamins with Iron/Calcium/Folic Acid/Minerals Tab PO SCH (08:13)
[2019-12-22] MEDS: predniSONE 20 MG Tab PO SCH (08:13)
[2019-12-22] MEDS: Cyclobenzaprine 10 MG Tab PO SCH (08:13)
[2019-12-22] MEDS: Docusate Sodium 100 MG Cap PO SCH (08:13)
[2019-12-22] MEDS: Ferrous Sulfate 325 MG Tab PO SCH (08:13)
[2019-12-22] MEDS: Lactobacillus Rhamnosus GG (Probiotic) Cap PO SCH (08:13)
[2019-12-22] MEDS: Pravastatin 20 MG Tab PO SCH (08:13)
[2019-12-22] MEDS: Doxycycline 100 MG in Sodium Chloride 0.9% 100 ML IV SCH (08:14)
[2019-12-22] MEDS: Calcitonin (Salmon) Nasal Spray 3.7 ML Bottle NAS SCH (08:14)
--- NOTE | 2019-12-22 10:48 | PCM.DCSUM1 ---
Discharge Summary - Hospital Course Brief History: Ms. Singleton is a 69-year-old woman who was admitted for further evaluation and management of cellulitis of her right lower extremity. - Discharge Data Discharge Date: 12/22/19 Discharge Disposition: Home, Self-Care 01 Condition: Fair - Referral to Home Health Primary Care Physician: Roverto Dewey MD - Discharge Diagnosis/Problem(s) (1) Cellulitis of right lower extremity SNOMED Code(s): 184266183 ICD Code: L03.115 - CELLULITIS OF RIGHT LOWER LIMB Status: Acute Current Visit: Yes (2) Rheumatoid arthritis SNOMED Code(s): 80921019 ICD Code: M06.9 - RHEUMATOID ARTHRITIS, UNSPECIFIED Status: Chronic Current Visit: No (3) CKD (chronic kidney disease) stage 4, GFR 15-29 ml/min SNOMED Code(s): 378961506 ICD Code: N18.4 - CHRONIC KIDNEY DISEASE, STAGE 4 (SEVERE) Status: Chronic Current Visit: No (4) MRSA bacteremia SNOMED Code(s): 32926774849593308 ICD Code: R78.81 - BACTEREMIA; B95.62 - METHICILLIN RESIS STAPH INFCT CAUSING DISEASES CLASSD ELSWHR Status: Acute Current Visit: Yes - Patient Summary/Data Consults: Consultations 12/18/19 13:47 Consult to Physician [CONS] Routine Consulting Provider: Klever Duncan Call Completed to Consulting Physician: Yes Reason for Consult: Swelling and pain right ankle 12/21/19 12:54 Consult to PICC Team [CONS] Routine Comment: Physician Instructions: Reason for Consult: Pic placement for IV antibiotic therapy Hospital Course: Ms. Singleton is a 69-year-old woman who was admitted through the emergency department with apparent cellulitis of her right ankle. Symptoms that started on the day prior to admission and developed fairly rapidly around the ankle with significant swelling erythema and tenderness. On evaluation in the emergency department she was felt to have probable cellulitis and started on IV antibiotic therapy. Blood cultures were obtained at the time of admission. She was also noted to have elevation in creatinine consistent with her known history of chronic kidney disease stage IV. She was treated with IV cefazolin, until blood cultures grew out MRSA. She was initially transitioned to IV vancomycin and then IV doxycycline. Renal function remained stable and improved modestly during her hospital stay. She was seen and evaluated by Dr. Duncan, MRI of the ankle showed no evidence of bone or joint involvement with the infection. There was no evidence of underlying abscess. By the time of discharge ankle it improved significantly with mild residual erythema. She was afebrile and white blood cell count had almost normalized. Elevation in white blood cell count was thought to be somewhat secondary to ongoing therapy with prednisone which she had been started on as an outpatient. She will receive an additional 7 days of IV antibiotic therapy with doxycycline 100 mg every 12 hours. PICC line was placed on the day prior to discharge and will be used for IV antibiotic therapy. Follow-up blood cultures were obtained and are negative as of the time of discharge. Activity will be as tolerated and she will resume her usual diet. Follow-up appointment will be scheduled with Dr. Dewey within 1 week. - Patient Instructions Diet: Usual Diet as Tolerated Activity: As Tolerated Activity, Other: Keep right leg elevated when sitting and lying Other/Special Instructions: Please arrange for IV antibiotic therapy as an outpatient; doxycycline 100 mg IV every 12 hours for 7 days. Please schedule follow-up appointment with Dr. Dewey within 1 week. - Discharge Plan *PRESCRIPTION DRUG MONITORING PROGRAM REVIEWED*: No *COPY OF PRESCRIPTION DRUG MONITORING REPORT IN PATIENT YAW: No Prescriptions/Med Rec: Lactobacillus Rhamnosus GG [Culturelle] 1 cap PO BID #60 cap Home Medications: Home Meds Amitriptyline [Elavil] 150 mg PO BEDTIME 09/15/13 [History] Cyclobenzaprine [Flexeril] 10 mg PO BID 09/15/13 [History] Ferrous Gluconate 240 mg PO DAILY 09/15/13 [History] Multivitamin [Multi-Vitamin Daily] 1 each PO DAILY 09/15/13 [History] predniSONE [Prednisone] 20 mg PO DAILY 09/15/13 [History] ClonazePAM [KlonoPIN] 0.5 mg PO BEDTIME 03/04/18 [History] carvediloL [Carvedilol] 6.25 mg PO BID 03/04/18 [History] Acetaminophen 2,000 mg PO BID 10/27/19 [History] Budesonide/Formoterol [Symbicort 160-4.5 MCG] 2 puff INH BID PRN 10/27/19 [ History] Calcitonin (Mora) [Miacalcin] 1 spray JOHN DAILY 10/27/19 [History] Diclofenac Sodium [Voltaren 1% Gel] 4 gram TOP QID PRN 10/27/19 [History] Pantoprazole Sodium [Protonix] 40 mg PO BID 10/27/19 [History] Pravastatin Sodium [Pravachol] 20 mg PO DAILY 10/27/19 [History] Tryptophan [l-Tryptophan] 2,000 mg PO DAILY PRN 10/27/19 [History] Ubidecarenone [Coq-10] 1 tab PO DAILY 10/27/19 [History] busPIRone [Buspar] 5 mg PO QID 10/27/19 [History] hydrALAZINE [Apresoline] 25 mg PO QID 10/27/19 [History] Doxycycline [Vibramycin] 100 mg IV BID #0 vial 12/22/19 [Rx] Lactobacillus Rhamnosus GG [Culturelle] 1 cap PO BID #60 cap 12/22/19 [Rx] Referrals: Roverto Dewey MD [Primary Care Provider] - 12/27/19 11:00 am (Please arrive 15 minutes early to register for your appointment.) - Discharge Summary/Plan Comment DC Time >30 min.: No - Patient Data Vitals - Most Recent: Last Vital Signs Temp 96.2 F L 12/22/19 10:35 Pulse 76 12/22/19 10:35 Resp 16 12/22/19 10:35 BP 123/76 12/22/19 10:35 Pulse Ox 100 12/22/19 10:35 Weight - Most Recent: 101 lb I&O - Last 24 hours: Intake & Output 12/21/19 12/22/19 12/22/19 22:59 06:59 14:59 Intake Total 100 120 580 Balance 100 120 580 Lab Results - Last 24 hrs: Laboratory Results - last 24 hr 12/22/19 12/22/19 Range/Units 04:30 04:30 WBC 12.9 H (4.5-11.0) K/uL RBC 3.41 (3.30-5.50) M/uL Hgb 11.0 L (12.0-15.0) g/dL Hct 35.8 L (36.0-48.0) % MCV 105 H (80-98) fL MCH 32 H (27-31) pg MCHC 31 L (32-36) % Plt Count 407 H (150-400) K/uL Add Manual Diff Yes Neutrophils % (Manual) 75 H (36-66) % Band Neutrophils % 5 (5-11) % Lymphocytes % (Manual) 12 L (24-44) % Monocytes % (Manual) 7 H (2-6) % Eosinophils % (Manual) 1 L (2-4) % Sodium 144 (140-148) mmol/L Potassium 4.5 (3.6-5.2) mmol/L Chloride 111 H (100-108) mmol/L Carbon Dioxide 25 (21-32) mmol/L Anion Gap 12.5 (5.0-14.0) mmol/L BUN 55 H (7-18) mg/dL Creatinine 1.7 H (0.6-1.0) mg/dL Est Cr Clr Drug Dosing 21.95 mL/min Estimated GFR (MDRD) 30 L (>60) Glucose 81 (74-106) mg/dL Calcium 8.4 L (8.5-10.1) mg/dL JOSHUA Results - Last 24 hrs: Microbiology 12/17/19 22:05 Aerobic Blood Culture - Final Blood - Arm, Left (Mrsa) Staphylococcus Aureus Anaerobic Blood Culture - Preliminary NO GROWTH AFTER 4 DAYS Med Orders - Current: Current Medications Acetaminophen (Tylenol) 650 mg PO Q6H [facility] Last Admin: 12/22/19 05:07 Dose: 650 mg Amitriptyline HCl (Elavil) 150 mg PO BEDTIME [facility] Last Admin: 12/21/19 21:02 Dose: 150 mg Buspirone HCl (Buspar) 5 mg PO QID [facility] Last Admin: 12/22/19 09:27 Dose: 5 mg Calcitonin [place] (Miacalcin Nasal [place]) 0 ml JOHN DAILY [facility] Last Admin: 12/22/19 08:14 Dose: Not Given Carvedilol (Coreg) 6.25 mg PO BID [facility] Last Admin: 12/22/19 08:12 Dose: 6.25 mg Clonazepam (Klonopin) 0.5 mg PO BEDTIME [facility] Last Admin: 12/21/19 21:06 Dose: 0.5 mg Cyclobenzaprine HCl (Flexeril) 10 mg PO BID [facility] Last Admin: 12/22/19 08:13 Dose: 10 mg Docusate Sodium (Colace) 100 mg PO BID [facility] Last Admin: 12/22/19 08:13 Dose: 100 mg Enoxaparin Sodium (Lovenox) 30 mg SUBCUT Q24H [facility] Last Admin: 12/21/19 16:10 Dose: 30 mg Ferrous Sulfate (Ferrous Sulfate) 325 mg PO DAILY@0800 [facility] Last Admin: 12/22/19 08:13 Dose: 325 mg Heparin Sodium (Porcine) (Heparin Lock Flush 100 Units/Ml) 500 units FLUSH ASDIRECTED PRN PRN Reason: to flush PICC per protocol Last Admin: 12/22/19 09:28 Dose: 100 units Hydralazine HCl (Apresoline) 25 mg PO QID [facility] Last Admin: 12/22/19 09:27 Dose: 25 mg Doxycycline Hyclate 100 mg/ (Sodium Chloride) 100 mls @ 100 mls/hr IV BID [facility] Last Admin: 12/22/19 08:14 Dose: 100 mls/hr Lactobacillus Rhamnosus (Culturelle) 1 cap PO BID [facility] Last Admin: 12/22/19 08:13 Dose: 1 cap Multivitamins/Minerals (Thera M Plus) 1 tab PO DAILY [facility] Last Admin: 12/22/19 08:13 Dose: 1 tab (Tryptophan [L- Tryptophan] 2,000 Mg ) 2,000 mg PO BEDTIME PRN PRN Reason: Sleep (Ubidecarenone [Coq- (10] 1 Tab)) 1 tab PO DAILY [facility] Last Admin: 12/22/19 08:14 Dose: Not Given Oxycodone HCl (Oxycodone) 5 mg PO Q4H PRN PRN Reason: Pain Pantoprazole Sodium (Protonix) 40 mg PO BID [facility] Last Admin: 12/22/19 08:13 Dose: 40 mg Pravastatin Sodium (Pravachol) 20 mg PO DAILY [facility] Last Admin: 12/22/19 08:13 Dose: 20 mg Prednisone (Prednisone) 20 mg PO DAILY@0800 [facility] Last Admin: 12/22/19 08:13 Dose: 20 mg Fluticasone/Salmeterol (Fluticasone-Salmeterol 232-14 Mcg Powder Inha) 1 puff INH BIDRT [facility] Last Admin: 12/22/19 07:36 Dose: 1 puff Sodium Chloride (Saline Flush) 10 ml FLUSH ASDIRECTED PRN PRN Reason: Keep Vein Open Last Admin: 12/17/19 21:49 Dose: 10 ml Discontinued Medications Acetaminophen (Tylenol) 650 mg PO Q4H PRN PRN Reason: Pain (Mild 1-3)/fever Last Admin: 12/19/19 11:43 Dose: 650 mg Buspirone HCl (Buspar) 10 mg PO QID [facility] Last Admin: 12/18/19 17:15 Dose: Not Given Calcitonin [place] (Miacalcin) 0 units .XX DAILY [facility] Furosemide (Lasix) 40 mg IVPUSH NOW ONE Stop: 12/19/19 13:01 Last Admin: 12/19/19 14:38 Dose: 40 mg Ceftriaxone Sodium 1 gm/ (Sodium Chloride) 50 mls @ 100 mls/hr IV ONETIME ONE Stop: 12/17/19 22:42 Last Admin: 12/17/19 22:26 Dose: 100 mls/hr Sodium Chloride (Normal Saline) 1,000 mls @ 125 mls/hr IV ASDIRECTED [facility] Last Admin: 12/18/19 07:13 Dose: 125 mls/hr Ceftriaxone Sodium 1 gm/ (Sodium Chloride) 50 mls @ 100 mls/hr IV Q24H [facility] Cefazolin Sodium/Dextrose 1 gm (/ Premix) 50 mls @ 100 mls/hr IV Q12H [facility] Stop: 12/18/19 14:00 Last Admin: 12/18/19 11:49 Dose: 100 mls/hr Cefazolin Sodium/Dextrose 1 gm (/ Premix) 50 mls @ 100 mls/hr IV Q8H [facility] Stop: 12/19/19 13:30 Last Admin: 12/19/19 11:27 Dose: 100 mls/hr Cefazolin Sodium/Dextrose 1 gm (/ Premix) 50 mls @ 100 mls/hr IV Q12H [facility] Last Admin: 12/19/19 23:52 Dose: 100 mls/hr Vancomycin HCl 1.25 gm/ Sodium (Chloride) 250 mls @ 166.667 mls/hr IV ONETIME ONE Stop: 12/20/19 08:29 Last Admin: 12/20/19 15:48 Dose: Not Given Vancomycin HCl 1 gm/ Sodium (Chloride) 250 mls @ 166.667 mls/hr IV Q48H [facility] Last Admin: 12/20/19 08:03 Dose: 166.667 mls/hr Vancomycin HCl (Vancomycin) 0 gm IV .PHARMACY TO DOSE [facility] Stop: 12/20/19 08:00 - Exam General: Reports: Alert, Oriented, Cooperative, Mild Distress Lungs: Reports: Clear to Auscultation, Normal Respiratory Effort Cardiovascular: Reports: Regular Rate, Regular Rhythm, No Murmurs GI/Abdominal Exam: Soft, Non-Tender, No Organomegaly, No Distention Extremities: Non-Tender, Redness (Mild residual)
== END 2019-12-22 12:15 | disposition home or self-care (01) | DRG 603 ==
LOC: JP.ED 21:06 → JP.MS 23:08
PROVIDERS: ADMIT Family Medicine; ATTEND Hospitalist
DX: L03.115 Cellulitis of right lower limb (principal); N18.4 Chronic kidney disease, stage 4 (severe); E78.00 Pure hypercholesterolemia, unspecified; N28.9 Disorder of kidney and ureter, unspecified; I10 Essential (primary) hypertension; R78.81 Bacteremia; F32.9 Major depressive disorder, single episode, unspecified; M06.9 Rheumatoid arthritis, unspecified; Z79.51 Long term (current) use of inhaled steroids; M35.3 Polymyalgia rheumatica; I12.9 Hypertensive chronic kidney disease with stage 1 through stage 4 chronic kidney disease, or unspecified chronic kidney disease; E11.22 Type 2 diabetes mellitus with diabetic chronic kidney disease; K21.9 Gastro-esophageal reflux disease without esophagitis; M81.0 Age-related osteoporosis without current pathological fracture; E78.5 Hyperlipidemia, unspecified; E21.3 Hyperparathyroidism, unspecified; Z88.1 Allergy status to other antibiotic agents; Z88.6 Allergy status to analgesic agent; Z79.52 Long term (current) use of systemic steroids; Z79.899 Other long term (current) drug therapy; B95.62 Methicillin resistant Staphylococcus aureus infection as the cause of diseases classified elsewhere
CPT/HCPCS: 36415; 80048; 81001; 83605; 85027; 86140; 87040 ×2; 87077; 87186; 96365; 99283; 99284; J0696; J7050; 36569; 73140-26-F5; 73140-F5; 73721-RT; 85025; 94640; A9270-GY; C1751; J0690; J1642; J1650; J1940; J3370; J3490; J7030; J7512

== ENCOUNTER 2019-12-28 10:20 | Emergency (ER) | payer MEDICARE, BC ==
[2019-12-28] MEDS ORDERED: Sodium Chloride 0.9% 10 ML Syringe FLUSH PRN (10:25)
--- NOTE | 2019-12-28 10:33 | EDM.PDOC ---
ED HPI GENERAL MEDICAL PROBLEM - General Chief Complaint: General Stated Complaint: WEAK Time Seen by Provider: 12/28/19 10:46 Source of Information: Reports: Patient, Family, Old Records, Provider History Limitations: Reports: Altered Mental Status - History of Present Illness INITIAL COMMENTS - FREE TEXT/NARRATIVE: 69 yo female has been getting outpatient treatments of IV doxycycline since an admission recently for cellulitis of her legs. She was seen by Dr. Dewey yesterday and reportedly was doing well. Today she is confused and weak and presented to the [facility] who now sends her to the ER for evaluation. She is accompanied by her who states he can't take care of her in her current condition. She says she didn't sleep well last night, but otherwise has no complaints. Infusion therapy who saw her this morning for her IV doxy just thought she seemed a little weak and a bit quieter than normal, they did not notice confusion. Nuclear medicine stress test 10/26 was negative. Onset: Today Onset Date: 12/28/19 Duration: Hour(s): Location: Reports: Generalized Quality: Reports: Dull Severity: Mild (only pain is to the R ankle where she recently had a cellulitis. ) Improves with: Reports: Other (time) Worsens with: Reports: None Context: Denies: Other (See HPI) Associated Symptoms: Reports: Confusion (mild). 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) (none) Right Ankle Pain Score (Numeric/FACES): 7 - Related Data Allergies Allergy/AdvReac Type Severity Reaction Status Date / Time levofloxacin [From Levaquin] Allergy Leg Cramps Verified 12/28/19 10:34 indomethacin [From Indocin] AdvReac Nausea Verified 12/28/19 10:34 indomethacin sodium AdvReac Nausea Verified 12/28/19 10:34 [From Indocin] naproxen [From Naprosyn] AdvReac Nausea Verified 12/28/19 10:34 trazodone AdvReac Nausea Verified 12/28/19 10:34 Home Meds: Home Meds Amitriptyline [Elavil] 150 mg PO BEDTIME 09/15/13 [History] Cyclobenzaprine [Flexeril] 10 mg PO BID 09/15/13 [History] Ferrous Gluconate 240 mg PO DAILY 09/15/13 [History] Multivitamin [Multi-Vitamin Daily] 1 each PO DAILY 09/15/13 [History] predniSONE [Prednisone] 20 mg PO DAILY 09/15/13 [History] ClonazePAM [KlonoPIN] 0.5 mg PO BEDTIME 03/04/18 [History] carvediloL [Carvedilol] 6.25 mg PO BID 03/04/18 [History] Acetaminophen 2,000 mg PO BID 10/27/19 [History] Budesonide/Formoterol [Symbicort 160-4.5 MCG] 2 puff INH BID PRN 10/27/19 [ History] Calcitonin ([place]) [Miacalcin] 1 spray JOHN DAILY 10/27/19 [History] Diclofenac Sodium [Voltaren 1% Gel] 4 gram TOP QID PRN 10/27/19 [History] Pantoprazole Sodium [Protonix] 40 mg PO BID 10/27/19 [History] Pravastatin Sodium [Pravachol] 20 mg PO DAILY 10/27/19 [History] Tryptophan [l-Tryptophan] 2,000 mg PO DAILY PRN 10/27/19 [History] Ubidecarenone [Coq-10] 1 tab PO DAILY 10/27/19 [History] busPIRone [Buspar] 5 mg PO QID 10/27/19 [History] hydrALAZINE [Apresoline] 25 mg PO QID 10/27/19 [History] Doxycycline [Vibramycin] 100 mg IV BID #0 vial 12/22/19 [Rx] Lactobacillus Rhamnosus GG [Culturelle] 1 cap PO BID #60 cap 12/22/19 [Rx] Past Medical History Cardiovascular History: Reports: High Cholesterol, Hypertension Gastrointestinal History: Reports: GERD Genitourinary History: Reports: Renal Disease [employer]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: Musculoskeletal History: Reports: Osteoporosis, RA, Other (See Below) Other Musculoskeletal History: Polymyalgia rheumatica Psychiatric History: Reports: Anxiety Endocrine/Metabolic History: Reports: Diabetes, Type II, Hyperparathyroidism Hematologic History: Reports: Other (See Below) Other Hematologic History: elevated WBC, refered hematology - Past Surgical History GI Surgical History: Reports: Appendectomy, Colon Female Surgical History: Reports: Section Social & Family History - Family History Family Medical History: Noncontributory - Caffeine Use Caffeine Use: Reports: Coffee ED ROS GENERAL - Review of Systems Review Of Systems: See Below Constitutional: Reports: Malaise, Weakness (mild, generalized) HEENT: Reports: No Symptoms Respiratory: Reports: No Symptoms Cardiovascular: Reports: No Symptoms Endocrine: Reports: No Symptoms GI/Abdominal: Reports: No Symptoms Musculoskeletal: Reports: Joint Pain (mild R ankle pain since her cellulitis began, some improvement. ) Skin: Reports: No Symptoms Neurological: Reports: Confusion (mild reportedly by her , patient does not think she is confused.) Psychiatric: Reports: No Symptoms - Physical Exam Exam: See Below Exam Limited By: No Limitations General Appearance: Alert, WD/WN, No Apparent Distress Eye Exam: Bilateral Eye: Normal Inspection Ears: Normal External Exam, Normal Canal, Hearing Grossly Normal, Normal TMs Nose: Normal Inspection, No Blood Throat/Mouth: Normal Inspection, Normal Lips, Normal Oropharynx, Normal Voice, No Airway Compromise Head Exam: Atraumatic, Normocephalic Neck: Normal Inspection Respiratory/Chest: No Respiratory Distress, Lungs Clear, Normal Breath Sounds, No Accessory Muscle Use Cardiovascular: Regular Rate, Rhythm, No Edema GI/Abdominal: Normal Bowel Sounds, Soft, Non-Tender, No Distention Neuro Exam (Abbreviated): Alert, Oriented, CN II-XII Intact, Normal Cognition, No Motor/Sensory Deficits Back Exam: Normal Inspection Extremities: Normal Inspection, Normal Range of Motion, Non-Tender, No Pedal Edema Psychiatric: Normal Affect, Normal Mood Skin Exam: Warm, Dry, Intact, No Rash, Other (the skin around her R lower leg and ankle is still slightly red and swollen when compared with the L ankle area. There is no obvious increase in warmth. The skin of the right ankle is sloughing due to the decrease in her swelling in recent days. ) EKG INTERPRETATION EKG Date: 12/28/19 Time: 15:00 Rhythm: NSR Rate (Beats/Min): 61 [place]: Normal P-Wave: Present QRS: Normal ST-T: Normal QT: Normal Comparison: NA - No Prior EKG (compared with her EST of 10/2019. LVH present. ST issues noted today with present in her recent EST.) Course - Vital Signs Text/Narrative:: Case discussed with Dr. Jones @ 1340h Last Recorded V/S: Last Vital Signs Temp 36.4 C 12/28/19 10:55 Pulse 61 12/28/19 10:55 Resp 14 12/28/19 10:55 BP 113/72 12/28/19 10:55 Pulse Ox 98 12/28/19 10:55 - Orders/Labs/Meds Orders: Active Orders 24 hr Category Date Time Status Cardiac Monitoring [RC] .As Directed Care 12/28/19 10:24 Active EKG Documentation Completion [RC] ASDIRECTED Care 12/28/19 11:11 Active Chest 2V [CR] Stat Exams 12/28/19 13:34 Taken Acetaminophen [Tylenol] Med 12/28/19 14:10 Once 650 mg PO NOW ONE Lactated Ringers [Ringers, Lactated] 1,000 ml Med 12/28/19 11:30 Active IV ASDIRECTED Saline Lock Insert [OM.PC] Routine Oth 12/28/19 10:25 Ordered EKG 12 Lead [EK] Routine Ther 12/28/19 11:11 Ordered Medication Orders Lactated Ringer's (Ringers, Lactated) 1,000 mls @ 500 mls/hr IV ASDIRECTED PHONG Last Admin: 12/28/19 11:32 Dose: 500 mls/hr Labs: Laboratory Tests 12/28/19 12/28/19 12/28/19 Range/Units 10:41 10:41 10:41 WBC 18.8 H (4.5-11.0) K/uL RBC 3.82 (3.30-5.50) M/uL Hgb 12.5 (12.0-15.0) g/dL Hct 39.7 (36.0-48.0) % MCV 104 H (80-98) fL MCH 33 H (27-31) pg MCHC 32 (32-36) % Plt Count 408 H (150-400) K/uL Neutrophils % (Manual) (36-66) % Band Neutrophils % (5-11) % Lymphocytes % (Manual) (24-44) % Monocytes % (Manual) (2-6) % Eosinophils % (Manual) (2-4) % Basophils % (Manual) (0-1) % Sodium 144 (140-148) mmol/L Potassium 4.5 (3.6-5.2) mmol/L Chloride 110 H (100-108) mmol/L Carbon Dioxide 22 (21-32) mmol/L Anion Gap 16.5 H (5.0-14.0) mmol/L BUN 69 H (7-18) mg/dL Creatinine 2.8 H D (0.6-1.0) mg/dL Est Cr Clr Drug Dosing 13.18 mL/min Estimated GFR (MDRD) 17 L (>60) Glucose 112 H (74-106) mg/dL Calcium 8.7 (8.5-10.1) mg/dL Total Bilirubin 0.5 (0.2-1.0) mg/dL AST 34 (15-37) U/L ALT 50 (12-78) U/L Alkaline Phosphatase 126 H (46-116) U/L Ammonia < 11 L (11-32) mmol/L Troponin I 0.184 H* (0.000-0.056) ng/mL Total Protein 5.9 L (6.4-8.2) g/dL Albumin 2.5 L (3.4-5.0) g/dL Globulin 3.4 (2.3-3.5) g/dL Albumin/Globulin Ratio 0.7 L (1.2-2.2) Urine Color (YELLOW) Urine Appearance (CLEAR) Urine pH (5.0-8.0) Ur Specific [place] (1.008-1.030) Urine Protein (NEGATIVE) mg/dL Urine Glucose (UA) (NEGATIVE) mg/dL Urine Ketones (NEGATIVE) mg/dL Urine Occult Blood (NEGATIVE) Urine Nitrite (NEGATIVE) Urine Bilirubin (NEGATIVE) Urine Urobilinogen (0.2-1.0) EU/dL Ur Leukocyte Esterase (NEGATIVE) Urine RBC (0-5) Urine WBC (0-5) Ur Epithelial Cells Amorphous Sediment Urine Bacteria Urine Mucus Urine Other 12/28/19 12/28/19 12/28/19 Range/Units 11:11 13:00 13:59 WBC (4.5-11.0) K/uL RBC (3.30-5.50) M/uL Hgb (12.0-15.0) g/dL Hct (36.0-48.0) % MCV (80-98) fL MCH (27-31) pg MCHC (32-36) % Plt Count (150-400) K/uL Neutrophils % (Manual) 76 H (36-66) % Band Neutrophils % 1 L (5-11) % Lymphocytes % (Manual) 16 L (24-44) % Monocytes % (Manual) 7 H (2-6) % Eosinophils % (Manual) 0 L (2-4) % Basophils % (Manual) 0 (0-1) % Sodium (140-148) mmol/L Potassium (3.6-5.2) mmol/L Chloride (100-108) mmol/L Carbon Dioxide (21-32) mmol/L Anion Gap (5.0-14.0) mmol/L BUN (7-18) mg/dL Creatinine (0.6-1.0) mg/dL Est Cr Clr Drug Dosing mL/min Estimated GFR (MDRD) (>60) Glucose (74-106) mg/dL Calcium (8.5-10.1) mg/dL Total Bilirubin (0.2-1.0) mg/dL AST (15-37) U/L ALT (12-78) U/L Alkaline Phosphatase (46-116) U/L Ammonia (11-32) mmol/L Troponin I 0.160 H* (0.000-0.056) ng/mL Total Protein (6.4-8.2) g/dL Albumin (3.4-5.0) g/dL Globulin (2.3-3.5) g/dL Albumin/Globulin Ratio (1.2-2.2) Urine Color Yellow (YELLOW) Urine Appearance Clear (CLEAR) Urine pH 5.5 (5.0-8.0) Ur Specific [place] 1.020 (1.008-1.030) Urine Protein Negative (NEGATIVE) mg/dL Urine Glucose (UA) Negative (NEGATIVE) mg/dL Urine Ketones Negative (NEGATIVE) mg/dL Urine Occult Blood Negative (NEGATIVE) Urine Nitrite Negative (NEGATIVE) Urine Bilirubin Negative (NEGATIVE) Urine Urobilinogen 0.2 (0.2-1.0) EU/dL Ur Leukocyte Esterase Trace H (NEGATIVE) Urine RBC Not seen (0-5) Urine WBC 0-5 (0-5) Ur Epithelial Cells Not seen Amorphous Sediment Rare Urine Bacteria Rare Urine Mucus Not seen Urine Other See note Meds: Medications Generic Name Dose Route Start Last Admin Trade Name Freq PRN Reason Stop Dose Admin Lactated Ringer's 1,000 mls @ 500 mls/hr 12/28/19 11:30 12/28/19 11:32 Ringers, Lactated IV 500 mls/hr ASDIRECTED PHONG Administration Discontinued Medications Generic Name Dose Route Start Last Admin Trade Name Yosef PRN Reason Stop Dose Admin Aspirin 324 mg 12/28/19 11:11 12/28/19 11:33 Aspirin PO 12/28/19 11:12 324 mg ONETIME ONE Administration Sodium Chloride 10 ml 12/28/19 10:25 Saline Flush FLUSH ASDIRECTED PRN Keep Vein Open - Radiology Interpretation Free Text/Narrative:: CXR-neg - Re-Assessments/Exams Free Text/Narrative Re-Assessment/Exam: 12/28/19 14:10 Walks pretty well here after lunch and a liter of IV fluids. Is not confused. Departure - Departure Time of Disposition: 14:11 Disposition: Home, Self-Care 01 Condition: Fair Clinical Impression: Mild dehydration, Medication side effect - Discharge Information *PRESCRIPTION DRUG MONITORING PROGRAM REVIEWED*: No *COPY OF PRESCRIPTION DRUG MONITORING REPORT IN PATIENT YAW: No Instructions: Dehydration, Adult, [id number] Referrals: PCP,None [Primary Care Provider] - Forms: ED Department Discharge Additional Instructions: Reduce your amitriptyline to 1/2 tablet at bedtime. Reduce also your Coreg to 1/ 2 of a tablet every 12 hrs. Continue all your other medications as currently. Use a walker if needed to ambulate safely. Recheck with your provider within the week, call for an appt. Sepsis Event Note - Focused Exam Vital Signs: Vital Signs Temp Pulse Resp BP Pulse Ox 12/28/19 10:55 36.4 C 61 14 113/72 98 12/28/19 10:47 36.4 C 61 14 113/72 98 Date Exam was Performed: 12/28/19 Time Exam was Performed: 14:10 - My Orders Last 24 Hours: My Active Orders 12/28/19 10:24 Cardiac Monitoring [RC] .As Directed 12/28/19 10:25 Saline Lock Insert [OM.PC] Routine 12/28/19 11:11 EKG Documentation Completion [RC] ASDIRECTED EKG 12 Lead [EK] Routine 12/28/19 11:30 Lactated Ringers [Ringers, Lactated] 1,000 ml IV ASDIRECTED 12/28/19 13:34 Chest 2V [CR] Stat 12/28/19 14:10 Acetaminophen [Tylenol] 650 mg PO NOW ONE - Assessment/Plan Last 24 Hours: My Active Orders 12/28/19 10:24 Cardiac Monitoring [RC] .As Directed 12/28/19 10:25 Saline Lock Insert [OM.PC] Routine 12/28/19 11:11 EKG Documentation Completion [RC] ASDIRECTED EKG 12 Lead [EK] Routine 12/28/19 11:30 Lactated Ringers [Ringers, Lactated] 1,000 ml IV ASDIRECTED 12/28/19 13:34 Chest 2V [CR] Stat 12/28/19 14:10 Acetaminophen [Tylenol] 650 mg PO NOW ONE
[2019-12-28] MEDS ORDERED: Aspirin 81 MG Tab.Chew PO ONE (11:11)
[2019-12-28] MEDS ORDERED: Lactated Ringers 1,000 ML IV SCH (11:30)
[2019-12-28] MEDS ORDERED: Acetaminophen 325 MG Tab PO ONE (14:10)
--- NOTE | 2019-12-28 14:40 | CRLCR ---
Indication: Weakness. Leukocytosis. Technique: Chest 2 views Comparison: None Findings: Cardiovascular and mediastinum: Left-side PICC present. There is cardiomegaly. Normal pulmonary vasculature. Lungs and pleural spaces: Lungs are clear. No sign of infiltrate or mass. No sign of pleural effusion. No pneumothorax. Bones and soft tissues: No significant findings. Impression: Cardiomegaly without further evidence of heart failure, pneumonia, or other acute abnormality. Dictated by Tk Brannon MD @ 12/28/2019 2:37:26 PM Dictated by: Tk Brannon MD @ 12/28/2019 14:38:08 (Electronically Signed)
== END 2019-12-28 14:39 | disposition home or self-care (01) ==
LOC: JP.ED 10:20
DX: E86.0 Dehydration (principal); R41.0 Disorientation, unspecified; T36.4X5A Adverse effect of tetracyclines, initial encounter; K21.9 Gastro-esophageal reflux disease without esophagitis; E78.00 Pure hypercholesterolemia, unspecified; I10 Essential (primary) hypertension; E11.9 Type 2 diabetes mellitus without complications; F41.9 Anxiety disorder, unspecified; Z88.5 Allergy status to narcotic agent; Z88.8 Allergy status to other drugs, medicaments and biological substances; Z88.1 Allergy status to other antibiotic agents; Z79.899 Other long term (current) drug therapy; Z48.01 Encounter for change or removal of surgical wound dressing
CPT/HCPCS: 36415; 71046; 80053; 81001; 82140; 84484; 85027; 93005; 93010; 96360; 96361; 99284; 99285; A9270; J3490; J7050; J7120

== ENCOUNTER 2020-01-08 09:50 | Observation (INO) | payer MEDICARE, BC ==
--- NOTE | 2020-01-08 10:18 | EDM.PDOC ---
ED HPI GENERAL MEDICAL PROBLEM - General Chief Complaint: General Stated Complaint: LEG ISSUES Time Seen by Provider: 01/08/20 10:00 Source of Information: Reports: Family, Provider History Limitations: Reports: Altered Mental Status - History of Present Illness INITIAL COMMENTS - FREE TEXT/NARRATIVE: 69-year-old female arrives with a significant mental status change which is gradually occurred over the last 24 hours. It is very similar to 3 weeks ago when she was diagnosed with MRSA septicemia. She slowly improved on IV then oral antibiotics, finish the antibiotics 48 hours ago and since that time she has had a rapid deterioration in mental status. She is very lethargic, still answers questions but can only open her eyes briefly and answer 1 question at a time and then seems to fall back asleep. She denies any pain, she denies any shivers, chills, shortness of breath, nausea or vomiting or headache. Her says this is almost identical to when she was diagnosed with MRSA septicemia last month. No trauma. Her right lower leg still has edema and mild erythema but no redness or significant change from several days ago. She is afebrile. She presented to the walk-in clinic this morning, but was sent directly over to the emergency room. She is not hypotensive, tachycardic, febrile, or hypoxic. The main concern is her marked decrease in mental status with weakness. Onset: Gradual Duration: Day(s): Location: Reports: Generalized Associated Symptoms: Reports: Confusion, Weakness - Related Data Allergies Allergy/AdvReac Type Severity Reaction Status Date / Time levofloxacin [From Levaquin] Allergy Leg Cramps Verified 12/28/19 10:34 indomethacin [From Indocin] AdvReac Nausea Verified 12/28/19 10:34 indomethacin sodium AdvReac Nausea Verified 12/28/19 10:34 [From Indocin] naproxen [From Naprosyn] AdvReac Nausea Verified 12/28/19 10:34 trazodone AdvReac Nausea Verified 12/28/19 10:34 Home Meds: Home Meds Amitriptyline [Elavil] 150 mg PO BEDTIME 09/15/13 [History] Cyclobenzaprine [Flexeril] 10 mg PO BID 09/15/13 [History] Ferrous Gluconate 240 mg PO DAILY 09/15/13 [History] Multivitamin [Multi-Vitamin Daily] 1 each PO DAILY 09/15/13 [History] predniSONE [Prednisone] 10 mg PO DAILY 09/15/13 [History] ClonazePAM [KlonoPIN] 0.5 mg PO BEDTIME 03/04/18 [History] carvediloL [Carvedilol] 6.25 mg PO BID 03/04/18 [History] Acetaminophen 2,000 mg PO BID 10/27/19 [History] Budesonide/Formoterol [Symbicort 160-4.5 MCG] 2 puff INH BID PRN 10/27/19 [ History] Calcitonin (Hankinson) [Miacalcin] 1 spray JOHN DAILY 10/27/19 [History] Diclofenac Sodium [Voltaren 1% Gel] 4 gram TOP QID PRN 10/27/19 [History] Pantoprazole Sodium [Protonix] 40 mg PO BID 10/27/19 [History] Pravastatin Sodium [Pravachol] 20 mg PO DAILY 10/27/19 [History] Tryptophan [l-Tryptophan] 2,000 mg PO DAILY PRN 10/27/19 [History] Ubidecarenone [Coq-10] 1 tab PO DAILY 10/27/19 [History] busPIRone [Buspar] 5 mg PO QID 10/27/19 [History] hydrALAZINE [Apresoline] 25 mg PO QID 10/27/19 [History] Lactobacillus Rhamnosus GG [Culturelle] 1 cap PO BID #60 cap 12/22/19 [Rx] Past Medical History HEENT History: Reports: Impaired Vision Cardiovascular History: Reports: High Cholesterol, Hypertension Gastrointestinal History: Reports: GERD Genitourinary History: Reports: Renal Disease OCC THER History: Reports: Musculoskeletal History: Reports: Osteoporosis, RA, Other (See Below) Other Musculoskeletal History: Polymyalgia rheumatica Psychiatric History: Reports: Anxiety Endocrine/Metabolic History: Reports: Diabetes, Type II, Hyperparathyroidism Hematologic History: Reports: Other (See Below) Other Hematologic History: elevated WBC, refered hematology - Infectious Disease History Infectious Disease History: Reports: Chicken Pox - Past Surgical History GI Surgical History: Reports: Appendectomy, Colon Female Surgical History: Reports: Section Social & Family History - Family History Family Medical History: Noncontributory - Caffeine Use Caffeine Use: Reports: Coffee ED ROS GENERAL - Review of Systems Review Of Systems: See Below Reason Not Obtained: Very limited, patient lethargic Constitutional: Reports: Malaise. Denies: Fever, Chills Respiratory: Denies: Shortness of Breath Cardiovascular: Denies: Chest Pain GI/Abdominal: Denies: Abdominal Pain, Nausea, Vomiting Skin: Reports: Other ( describes the right lower extremity is not significantly different than while on treatment) Neurological: Reports: Difficulty Walking, Weakness, Other (Patient had an MRI last week because of persistent balance issues). Denies: Headache Psychiatric: Denies: Anxiety, Depression ED EXAM, GENERAL - Physical Exam Exam: See Below Exam Limited By: Physical Impairment (Very lethargic but arousable) General Appearance: Lethargic Eye Exam: Bilateral Eye: PERRL (Pupils do look mildly dilated but are reactive and equal) Head: Atraumatic Neck: Supple Respiratory/Chest: Other (A few extreme basilar rales bilaterally, otherwise clear lungs) Cardiovascular: Regular Rate, Rhythm GI/Abdominal: Soft, Non-Tender Extremities: Other (The right lower extremity has pitting edema which is mostly through the foot and ankle, mild erythema and dryness of the skin compared to the left) Neurological: Inattentive, Slow to Respond Psychiatric: Flat Affect Course - Vital Signs Last Recorded V/S: Last Vital Signs Temp 95.8 F L 01/08/20 14:02 Pulse 68 01/08/20 14:02 Resp 26 H 01/08/20 14:02 BP 122/71 01/08/20 14:02 Pulse Ox 100 01/08/20 14:02 - Orders/Labs/Meds Orders: Active Orders 24 hr Category Date Time Status CULTURE BLOOD [BC] Urgent Lab 01/08/20 10:15 Received CULTURE BLOOD [BC] Urgent Lab 01/08/20 10:20 Received CULTURE URINE [RM] Stat Lab 01/08/20 11:35 Received Blood Culture x2 Reflex Set [OM.PC] Urgent Oth 01/08/20 10:14 Ordered Medication Orders Acetaminophen (Tylenol) 650 mg PO Q4H PRN PRN Reason: Pain (Mild 1-3)/fever Albuterol (Proventil Neb Soln) 2.5 mg NEB Q4H PRN PRN Reason: Shortness Of Breath/wheezing Clonazepam (Klonopin) 0.5 mg PO BEDTIME PHONG Ceftriaxone Sodium 1 gm/ (Sodium Chloride) 50 mls @ 100 mls/hr IV Q24H PHONG Sodium Chloride (Normal Saline) 1,000 mls @ 100 mls/hr IV ASDIRECTED PHONG Last Admin: 01/08/20 14:40 Dose: 100 mls/hr Lactobacillus Rhamnosus (Culturelle) 1 cap PO BID PHONG Lorazepam (Ativan) 0.5 mg IVPUSH Q4H PRN PRN Reason: Nausea/Vomiting Magnesium Hydroxide (Milk Of Magnesia) 30 ml PO Q12H PRN PRN Reason: Constipation Melatonin (Melatonin) 9 mg PO BEDTIME PHONG Non-Formulary Medication (Budesonide/Formoterol [Symbicort 160-4.5 Mcg]) 2 puff INH BID PRN PRN Reason: Shortness of Breath Non-Formulary Medication (Carvedilol [Carvedilol]) 6.25 mg PO BID [facility] Non-Formulary Medication (Hydralazine [Apresoline]) 25 mg PO QID [facility] Non-Formulary Medication (Pantoprazole Sodium [Protonix]) 40 mg PO BID [facility] Non-Formulary Medication (Pravastatin Sodium [Pravachol]) 20 mg PO DAILY [facility] Non-Formulary Medication (Prednisone [Prednisone]) 10 mg PO DAILY [facility] Ondansetron HCl (Zofran Odt) 4 mg PO Q6H PRN PRN Reason: Nausea able to take PO Ondansetron HCl (Zofran) 4 mg IV Q6H PRN PRN Reason: Nausea/Vomiting Senna/Docusate Sodium (Senna Plus) 1 tab PO BID PRN PRN Reason: Constipation Labs: Laboratory Tests 01/08/20 01/08/20 01/08/20 Range/Units 10:20 10:20 10:26 WBC 13.5 H (4.5-11.0) K/uL RBC 3.65 (3.30-5.50) M/uL Hgb 11.4 L (12.0-15.0) g/dL Hct 38.7 (36.0-48.0) % MCV 106 H (80-98) fL MCH 31 (27-31) pg MCHC 30 L (32-36) % Plt Count 422 H (150-400) K/uL Add Manual Diff Yes Neutrophils % (Manual) 62 (36-66) % Band Neutrophils % 5 (5-11) % Lymphocytes % (Manual) 22 L (24-44) % Monocytes % (Manual) 8 H (2-6) % Eosinophils % (Manual) 1 L (2-4) % Metamyelocytes % 2 % Sodium (140-148) mmol/L Potassium (3.6-5.2) mmol/L Chloride (100-108) mmol/L Carbon Dioxide (21-32) mmol/L Anion Gap (5.0-14.0) mmol/L BUN (7-18) mg/dL Creatinine (0.6-1.0) mg/dL Est Cr Clr Drug Dosing mL/min Estimated GFR (MDRD) (>60) Glucose (74-106) mg/dL Lactic Acid (0.4-2.0) mmol/L Calcium (8.5-10.1) mg/dL Total Bilirubin (0.2-1.0) mg/dL AST (15-37) U/L ALT (12-78) U/L Alkaline Phosphatase (46-116) U/L C-Reactive Protein 1.09 H (0.0-0.3) mg/dL Total Protein (6.4-8.2) g/dL Albumin (3.4-5.0) g/dL Globulin (2.3-3.5) g/dL Albumin/Globulin Ratio (1.2-2.2) Procalcitonin 0.10 ng/mL Urine Color (YELLOW) Urine Appearance (CLEAR) Urine pH (5.0-8.0) Ur Specific [place] (1.008-1.030) Urine Protein (NEGATIVE) mg/dL Urine Glucose (UA) (NEGATIVE) mg/dL Urine Ketones (NEGATIVE) mg/dL Urine Occult Blood (NEGATIVE) Urine Nitrite (NEGATIVE) Urine Bilirubin (NEGATIVE) Urine Urobilinogen (0.2-1.0) EU/dL Ur Leukocyte Esterase (NEGATIVE) Urine RBC (0-5) Urine WBC (0-5) Ur Epithelial Cells Amorphous Sediment Urine Bacteria Urine Mucus 01/08/20 01/08/20 01/08/20 Range/Units 10:26 10:26 10:43 WBC (4.5-11.0) K/uL RBC (3.30-5.50) M/uL Hgb (12.0-15.0) g/dL Hct (36.0-48.0) % MCV (80-98) fL MCH (27-31) pg MCHC (32-36) % Plt Count (150-400) K/uL Add Manual Diff Neutrophils % (Manual) (36-66) % Band Neutrophils % (5-11) % Lymphocytes % (Manual) (24-44) % Monocytes % (Manual) (2-6) % Eosinophils % (Manual) (2-4) % Metamyelocytes % % Sodium 141 (140-148) mmol/L Potassium 4.3 (3.6-5.2) mmol/L Chloride 108 (100-108) mmol/L Carbon Dioxide 20 L (21-32) mmol/L Anion Gap 17.3 H (5.0-14.0) mmol/L BUN 34 H D (7-18) mg/dL Creatinine 2.1 H (0.6-1.0) mg/dL Est Cr Clr Drug Dosing 18.00 mL/min Estimated GFR (MDRD) 23 L (>60) Glucose 130 H (74-106) mg/dL Lactic Acid 1.8 (0.4-2.0) mmol/L Calcium 8.5 (8.5-10.1) mg/dL Total Bilirubin 0.3 (0.2-1.0) mg/dL AST 30 (15-37) U/L ALT 41 (12-78) U/L Alkaline Phosphatase 159 H (46-116) U/L C-Reactive Protein (0.0-0.3) mg/dL Total Protein 5.6 L (6.4-8.2) g/dL Albumin 2.4 L (3.4-5.0) g/dL Globulin 3.2 (2.3-3.5) g/dL Albumin/Globulin Ratio 0.8 L (1.2-2.2) Procalcitonin ng/mL Urine Color Yellow (YELLOW) Urine Appearance Cloudy A (CLEAR) Urine pH 5.5 (5.0-8.0) Ur Specific [place] 1.020 (1.008-1.030) Urine Protein Negative (NEGATIVE) mg/dL Urine Glucose (UA) Negative (NEGATIVE) mg/dL Urine Ketones Negative (NEGATIVE) mg/dL Urine Occult Blood Negative (NEGATIVE) Urine Nitrite Negative (NEGATIVE) Urine Bilirubin Negative (NEGATIVE) Urine Urobilinogen 0.2 (0.2-1.0) EU/dL Ur Leukocyte Esterase Large H (NEGATIVE) Urine RBC Not seen (0-5) Urine WBC 75-100 H (0-5) Ur Epithelial Cells Moderate Amorphous Sediment Moderate Urine Bacteria Many Urine Mucus Not seen Meds: Medications Generic Name Dose Route Start Last Admin Trade Name Freq PRN Reason Stop Dose Admin Acetaminophen 650 mg 01/08/20 14:02 Tylenol PO Q4H PRN Pain (Mild 1-3)/fever Albuterol 2.5 mg 01/08/20 14:02 Proventil Neb Soln NEB Q4H PRN Shortness Of Breath/wheezing Clonazepam 0.5 mg 01/08/20 21:00 Klonopin PO BEDTIME PHONG Ceftriaxone Sodium 1 gm/ 50 mls @ 100 mls/hr 01/09/20 12:00 Sodium Chloride IV Q24H PHONG Sodium Chloride 1,000 mls @ 100 mls/hr 01/08/20 14:02 01/08/20 14:40 Normal Saline IV 100 mls/hr ASDIRECTED PHONG Administration Lactobacillus Rhamnosus 1 cap 01/08/20 21:00 Culturelle PO BID PHONG Lorazepam 0.5 mg 01/08/20 14:02 Ativan IVPUSH Q4H PRN Nausea/Vomiting Magnesium Hydroxide 30 ml 01/08/20 14:02 Milk Of Magnesia PO Q12H PRN Constipation Melatonin 9 mg 01/08/20 21:00 Melatonin PO BEDTIME PHONG Non-Formulary Medication 2 puff 01/08/20 14:02 Budesonide/Formoterol [Symbicort 160-4.5 Mcg] INH BID PRN Shortness of Breath Non-Formulary Medication 6.25 mg 01/08/20 21:00 Carvedilol [Carvedilol] PO BID PHONG Non-Formulary Medication 25 mg 01/08/20 16:00 Hydralazine [Apresoline] PO QID PHONG Non-Formulary Medication 40 mg 01/08/20 21:00 Pantoprazole Sodium [Protonix] PO BID PHONG Non-Formulary Medication 20 mg 01/09/20 09:00 Pravastatin Sodium [Pravachol] PO DAILY PHONG Non-Formulary Medication 10 mg 01/09/20 09:00 Prednisone [Prednisone] PO DAILY PHONG Ondansetron HCl 4 mg 01/08/20 14:02 Zofran Odt PO Q6H PRN Nausea able to take PO Ondansetron HCl 4 mg 01/08/20 14:02 Zofran IV Q6H PRN Nausea/Vomiting Senna/Docusate Sodium 1 tab 01/08/20 14:02 Senna Plus PO BID PRN Constipation Discontinued Medications Generic Name Dose Route Start Last Admin Trade Name Freq PRN Reason Stop Dose Admin Sodium Chloride 500 mls @ 1,000 mls/hr 01/08/20 10:24 01/08/20 10:31 Normal Saline IV 01/08/20 10:53 1,000 mls/hr .BOLUS ONE Administration Ceftriaxone Sodium 1 gm/ 50 mls @ 100 mls/hr 01/08/20 11:24 01/08/20 11:52 Sodium Chloride IV 01/08/20 11:53 100 mls/hr ONETIME ONE Administration - Re-Assessments/Exams Free Text/Narrative Re-Assessment/Exam: 01/08/20 10:22 Blood cultures were obtained as well as mini cath UA, CBC CMP and lactic acid. I do not think imaging is necessary again. A portable chest x-ray was obtained. A 500 cc bolus of normal saline was given, a full liter of fluid was held as all her vitals are normal and she is a very small person, I did not want to fluid overload. 01/08/20 10:38 Chest x-ray was somewhat rotated but showed no infiltrate or congestive failure. 01/08/20 12:38 Urine was abnormal, 75-100 WBCs and many bacteria. A culture was initiated and the patient was given 1 g of IV Rocephin. White count was 13,500, CRP just over 1.0. Kidney function was near her baseline levels and lactic acid was normal. This may have been a change in mental status just from a UTI and not a significant bout of recurring sepsis. Dr. Jones of the hospitalist service kindly agreed to admit the patient for initial treatment and observation. Departure - Departure Time of Disposition: 15:16 Disposition: Admitted As Inpatient 64 Clinical Impression: CKD (chronic kidney disease) stage 4, GFR 15-29 ml/min Urinary tract infection Qualifiers: Urinary tract infection type: site unspecified Hematuria presence: without hematuria Qualified Code(s): N39.0 - Urinary tract infection, site not specified - Discharge Information Sepsis Event Note - Focused Exam Vital Signs: Vital Signs Temp Pulse Resp BP Pulse Ox 01/08/20 12:16 96.6 F L 71 16 152/86 H 100 01/08/20 10:40 96.6 F L 78 16 121/78 95 01/08/20 10:09 96.6 F L 78 16 121/78 95 Date Exam was Performed: 01/08/20 Time Exam was Performed: 15:46 - My Orders Last 24 Hours: My Active Orders 01/08/20 10:14 Blood Culture x2 Reflex Set [OM.PC] Urgent 01/08/20 10:15 CULTURE BLOOD [BC] Urgent 01/08/20 10:20 CULTURE BLOOD [BC] Urgent 01/08/20 11:35 CULTURE URINE [RM] Stat - Assessment/Plan Last 24 Hours: My Active Orders 01/08/20 10:14 Blood Culture x2 Reflex Set [OM.PC] Urgent 01/08/20 10:15 CULTURE BLOOD [BC] Urgent 01/08/20 10:20 CULTURE BLOOD [BC] Urgent 01/08/20 11:35 CULTURE URINE [RM] Stat
[2020-01-08] MEDS ORDERED: Sodium Chloride 0.9% 500 ML IV ONE (10:24)
--- NOTE | 2020-01-08 10:45 | CR ---
CHEST: Portable 01/08/2020 at 10:21 AM CLINICAL HISTORY:Basilar rales COMPARISON:12/28/2019 FINDINGS: The heart is enlarged. Pulmonary vascularity is normal. There are atherosclerotic changes in the aorta. There is chronic elevation right hemidiaphragm. There is some blunting of the right costophrenic angle which is new since prior study the suggests a small right effusion. Patient has been central venous line from the left upper extremity. The tip is in the right atrium near the AV junction. This is similar to prior study. IMPRESSION: Less than optimal inspiration exaggerates basilar lung markings. Small right basal effusion and some patchy right basilar airspace disease, likely some patchy atelectasis Cardiomegaly Central venous catheter in the right atrium
[2020-01-08] MEDS ORDERED: cefTRIAXone 1 GM in Sodium Chloride 0.9% 50 ML IV ONE (11:24)
--- NOTE | 2020-01-08 13:04 | PCM.HP.2 ---
H&P History of Present Illness - General Date of Service: 01/08/20 Admit Problem/Dx: Admission Diagnosis/Problem Admission Diagnosis/Problem Acute cystitis without hematuria Source of Information: Patient, Provider History Limitations: Reports: Altered Mental Status (confused) - History of Present Illness Initial Comments - Free Text/Narative: CC: my legs were hurting HPI: Betty presents to the emergency room today with 24 hours of progressive weakness. She is somewhat confused so history is gathered partially from her and partially from family and emergency room personnel. She has recently been treated for a systemic MRSA infection which was thought to originate in an infected right ankle/Lower extremity. She has completed antibiotics. Over the past 24 hours she has become more weak and lethargic and slept most of the time. She does not remember coming to the emergency room earlier in the morning. She says that she is feeling better now and thinks she could go home but does admit she is not thinking clearly and does feel very weak. She was so weak she could not get out of bed. She does not think she has been having any fevers. No complaints of abdominal pain or nausea. She did not have any dysuria or increased urinary frequency. She thinks she has been eating fairly well. She did note some pain in her lower legs which reminded her of the previous infection that landed her in the hospital a few weeks ago. Pain is gone at this time. She is not able to describe the pain more than it was sore. She does admit that the pain was moderately severe. She did not take anything to make the pain better. She is not aware of anything that makes the pain worse. Work-up in the emergency room was suggestive of a urinary tract infection. Her chronic kidney disease is stable. She is more alert and interactive after some IV fluids. She is confused and too weak to be safe for outpatient management. - Related Data Allergies/Adverse Reactions: Allergies Allergy/AdvReac Type Severity Reaction Status Date / Time levofloxacin [From Levaquin] Allergy Leg Cramps Verified 12/28/19 10:34 indomethacin [From Indocin] AdvReac Nausea Verified 12/28/19 10:34 indomethacin sodium AdvReac Nausea Verified 12/28/19 10:34 [From Indocin] naproxen [From Naprosyn] AdvReac Nausea Verified 12/28/19 10:34 trazodone AdvReac Nausea Verified 12/28/19 10:34 Home Medications: Home Meds Amitriptyline [Elavil] 150 mg PO BEDTIME 09/15/13 [History] Cyclobenzaprine [Flexeril] 10 mg PO BID 09/15/13 [History] Ferrous Gluconate 240 mg PO DAILY 09/15/13 [History] Multivitamin [Multi-Vitamin Daily] 1 each PO DAILY 09/15/13 [History] predniSONE [Prednisone] 10 mg PO DAILY 09/15/13 [History] ClonazePAM [KlonoPIN] 0.5 mg PO BEDTIME 03/04/18 [History] carvediloL [Carvedilol] 6.25 mg PO BID 03/04/18 [History] Acetaminophen 2,000 mg PO BID 10/27/19 [History] Budesonide/Formoterol [Symbicort 160-4.5 MCG] 2 puff INH BID PRN 10/27/19 [ History] Calcitonin (Xenia) [Miacalcin] 1 spray JOHN DAILY 10/27/19 [History] Diclofenac Sodium [Voltaren 1% Gel] 4 gram TOP QID PRN 10/27/19 [History] Pantoprazole Sodium [Protonix] 40 mg PO BID 10/27/19 [History] Pravastatin Sodium [Pravachol] 20 mg PO DAILY 10/27/19 [History] Tryptophan [l-Tryptophan] 2,000 mg PO DAILY PRN 10/27/19 [History] Ubidecarenone [Coq-10] 1 tab PO DAILY 10/27/19 [History] busPIRone [Buspar] 5 mg PO QID 10/27/19 [History] hydrALAZINE [Apresoline] 25 mg PO QID 10/27/19 [History] Lactobacillus Rhamnosus GG [Culturelle] 1 cap PO BID #60 cap 12/22/19 [Rx] Past Medical History HEENT History: Reports: Impaired Vision Cardiovascular History: Reports: High Cholesterol, Hypertension Respiratory History: Reports: Asthma Gastrointestinal History: Reports: GERD Genitourinary History: Reports: Renal Disease [employer] History: Reports: Musculoskeletal History: Reports: Osteoporosis, RA, Other (See Below) Other Musculoskeletal History: Polymyalgia rheumatica Psychiatric History: Reports: Anxiety Endocrine/Metabolic History: Reports: Diabetes, Type II, Hyperparathyroidism Hematologic History: Reports: Other (See Below) Other Hematologic History: elevated WBC, refered hematology - Infectious Disease History Infectious Disease History: Reports: Chicken Pox - Past Surgical History GI Surgical History: Reports: Appendectomy, Colon Female Surgical History: Reports: Section Social & Family History - Family History Family Medical History: Noncontributory - Tobacco Use Smoking Status *Q: Never Smoker - Caffeine Use Caffeine Use: Reports: Coffee - Recreational Drug Use Recreational Drug Use: No H&P Review of Systems - Review of Systems: Review Of Systems: See Below Free Text/Narrative: A complete 12 point review of systems was obtained. Pertinent positives and negatives are noted in the history of present illness. All other systems were reviewed and were negative except as noted. Exam - Exam Exam: See Below - Vital Signs Vital Signs: Last Vital Signs Temp 35.9 C L 01/08/20 12:16 Pulse 71 01/08/20 12:16 Resp 16 01/08/20 12:16 BP 152/86 H 01/08/20 12:16 Pulse Ox 100 01/08/20 12:16 Weight: 46.4 kg - Exam Quality Assessment: No: Supplemental Oxygen General: Alert, Oriented, Cooperative. No: Mild Distress HEENT: Conjunctiva Clear. No: Mucosa Moist & [place] (dry), Scleral Icterus Neck: Supple, Trachea Midline Lungs: Clear to Auscultation, Normal Respiratory Effort Cardiovascular: Regular Rate, Regular Rhythm. No: Systolic Murmur GI/Abdominal Exam: Normal Bowel Sounds, Soft, Non-Tender, No Distention Extremities: Pedal Edema (mild right lower leg ), Increased Warmth (mild right lower leg ) Skin: Warm, Dry, Other (slight purple discoloration right lower leg from mid pruitt distally ) Neuro Extensive - Mental Status: Alert, Nl Response to Commands. No: Oriented x3 Neuro Extensive - Motor, Sensory, Reflexes: No: Dysarthria, Abnormal Motor, Tremor Psychiatric: Alert, Normal Affect. No: Agitated - Patient Data Lab Results Last 24 hrs: Laboratory Results - last 24 hr 01/08/20 01/08/20 01/08/20 Range/Units 10:20 10:20 10:26 WBC 13.5 H (4.5-11.0) K/uL RBC 3.65 (3.30-5.50) M/uL Hgb 11.4 L (12.0-15.0) g/dL Hct 38.7 (36.0-48.0) % MCV 106 H (80-98) fL MCH 31 (27-31) pg MCHC 30 L (32-36) % Plt Count 422 H (150-400) K/uL Add Manual Diff Yes Neutrophils % (Manual) 62 (36-66) % Band Neutrophils % 5 (5-11) % Lymphocytes % (Manual) 22 L (24-44) % Monocytes % (Manual) 8 H (2-6) % Eosinophils % (Manual) 1 L (2-4) % Metamyelocytes % 2 % Sodium (140-148) mmol/L Potassium (3.6-5.2) mmol/L Chloride (100-108) mmol/L Carbon Dioxide (21-32) mmol/L Anion Gap (5.0-14.0) mmol/L BUN (7-18) mg/dL Creatinine (0.6-1.0) mg/dL Est Cr Clr Drug Dosing mL/min Estimated GFR (MDRD) (>60) Glucose (74-106) mg/dL Lactic Acid (0.4-2.0) mmol/L Calcium (8.5-10.1) mg/dL Total Bilirubin (0.2-1.0) mg/dL AST (15-37) U/L ALT (12-78) U/L Alkaline Phosphatase (46-116) U/L C-Reactive Protein 1.09 H (0.0-0.3) mg/dL Total Protein (6.4-8.2) g/dL Albumin (3.4-5.0) g/dL Globulin (2.3-3.5) g/dL Albumin/Globulin Ratio (1.2-2.2) Procalcitonin 0.10 ng/mL Urine Color (YELLOW) Urine Appearance (CLEAR) Urine pH (5.0-8.0) Ur Specific [place] (1.008-1.030) Urine Protein (NEGATIVE) mg/dL Urine Glucose (UA) (NEGATIVE) mg/dL Urine Ketones (NEGATIVE) mg/dL Urine Occult Blood (NEGATIVE) Urine Nitrite (NEGATIVE) Urine Bilirubin (NEGATIVE) Urine Urobilinogen (0.2-1.0) EU/dL Ur Leukocyte Esterase (NEGATIVE) Urine RBC (0-5) Urine WBC (0-5) Ur Epithelial Cells Amorphous Sediment Urine Bacteria Urine Mucus 01/08/20 01/08/20 01/08/20 Range/Units 10:26 10:26 10:43 WBC (4.5-11.0) K/uL RBC (3.30-5.50) M/uL Hgb (12.0-15.0) g/dL Hct (36.0-48.0) % MCV (80-98) fL MCH (27-31) pg MCHC (32-36) % Plt Count (150-400) K/uL Add Manual Diff Neutrophils % (Manual) (36-66) % Band Neutrophils % (5-11) % Lymphocytes % (Manual) (24-44) % Monocytes % (Manual) (2-6) % Eosinophils % (Manual) (2-4) % Metamyelocytes % % Sodium 141 (140-148) mmol/L Potassium 4.3 (3.6-5.2) mmol/L Chloride 108 (100-108) mmol/L Carbon Dioxide 20 L (21-32) mmol/L Anion Gap 17.3 H (5.0-14.0) mmol/L BUN 34 H D (7-18) mg/dL Creatinine 2.1 H (0.6-1.0) mg/dL Est Cr Clr Drug Dosing 18.00 mL/min Estimated GFR (MDRD) 23 L (>60) Glucose 130 H (74-106) mg/dL Lactic Acid 1.8 (0.4-2.0) mmol/L Calcium 8.5 (8.5-10.1) mg/dL Total Bilirubin 0.3 (0.2-1.0) mg/dL AST 30 (15-37) U/L ALT 41 (12-78) U/L Alkaline Phosphatase 159 H (46-116) U/L C-Reactive Protein (0.0-0.3) mg/dL Total Protein 5.6 L (6.4-8.2) g/dL Albumin 2.4 L (3.4-5.0) g/dL Globulin 3.2 (2.3-3.5) g/dL Albumin/Globulin Ratio 0.8 L (1.2-2.2) Procalcitonin ng/mL Urine Color Yellow (YELLOW) Urine Appearance Cloudy A (CLEAR) Urine pH 5.5 (5.0-8.0) Ur Specific [place] 1.020 (1.008-1.030) Urine Protein Negative (NEGATIVE) mg/dL Urine Glucose (UA) Negative (NEGATIVE) mg/dL Urine Ketones Negative (NEGATIVE) mg/dL Urine Occult Blood Negative (NEGATIVE) Urine Nitrite Negative (NEGATIVE) Urine Bilirubin Negative (NEGATIVE) Urine Urobilinogen 0.2 (0.2-1.0) EU/dL Ur Leukocyte Esterase Large H (NEGATIVE) Urine RBC Not seen (0-5) Urine WBC 75-100 H (0-5) Ur Epithelial Cells Moderate Amorphous Sediment Moderate Urine Bacteria Many Urine Mucus Not seen Result Diagrams: 01/08/20 10:26 01/08/20 10:26 Imaging Impressions Last 24 hrs: CXR-images personally reviewed-lungs clear with no mass, infiltrate or effusion. Possible mild atelectasis. Sepsis Event Note - Evaluation Sepsis Screening Result: No Definite Risk - Focused Exam Vital Signs: Vital Signs Temp Pulse Resp BP Pulse Ox 01/08/20 12:16 35.9 C L 71 16 152/86 H 100 01/08/20 10:40 35.9 C L 78 16 121/78 95 01/08/20 10:09 35.9 C L 78 16 121/78 95 Date Exam was Performed: 01/08/20 Time Exam was Performed: 16:03 *Q Meaningful Use (ADM) - VTE Risk Assess *Q Each Risk Factor Represents 1 Point: Swollen Legs, Current Total Score 1 Point Risk Factors: 1 Each Risk Factor Represents 2 Points: Age 60 - 74 Years Total Score 2 Point Risk Factors: 2 Each Risk Factor Represents 3 Points: None Total Score 3 Point Risk Factors: 0 Each Risk Factor Represents 5 Points: None Total Score 5 Point Risk Factors: 0 Venous Thromboembolism Risk Factor Score *Q: 3 - Problem List (1) Acute cystitis without hematuria SNOMED Code(s): 69512045 ICD Code: N30.00 - ACUTE CYSTITIS WITHOUT HEMATURIA Status: Acute Current Visit: Yes (2) Rheumatoid arthritis SNOMED Code(s): 32576479 ICD Code: M06.9 - RHEUMATOID ARTHRITIS, UNSPECIFIED Status: Chronic Current Visit: No Qualifiers: Rheumatoid factor presence: unspecified presence Laterality: unspecified laterality (3) CKD (chronic kidney disease) stage 4, GFR 15-29 ml/min SNOMED Code(s): 431007355 ICD Code: N18.4 - CHRONIC KIDNEY DISEASE, STAGE 4 (SEVERE) Status: Chronic Current Visit: Yes (4) Type 2 diabetes mellitus SNOMED Code(s): 51917097 ICD Code: E11.9 - TYPE 2 DIABETES MELLITUS WITHOUT COMPLICATIONS Status: Chronic Current Visit: No Qualifiers: Diabetes mellitus keno terminal operator insulin use: without keno terminal operator use Diabetes mellitus complication status: without complication Qualified Code(s): E11.9 - Type 2 diabetes mellitus without complications Problem List Initiated/Reviewed/Updated: Yes Orders Last 24hrs: Active Orders 24 hr Category Date Time Status Patient Status Manage Transfer [TRANSFER] Routine ADT 01/08/20 12:53 Ordered CULTURE BLOOD [BC] Urgent Lab 01/08/20 10:15 Received CULTURE BLOOD [BC] Urgent Lab 01/08/20 10:20 Received CULTURE URINE [RM] Stat Lab 01/08/20 11:35 Received Blood Culture x2 Reflex Set [OM.PC] Urgent Oth 01/08/20 10:14 Ordered Resuscitation Status Routine Resus Stat 01/08/20 12:55 Ordered Assessment/Plan Comment:: ASSESSMENT AND PLAN - Acute cystitis without hematuria-urinary tract infection is the likely culprit for her decreased level of consciousness. She is improving with just IV fluids. She has received ceftriaxone and a culture has been obtained. -Gentle fluids -Continue ceftriaxone -Follow-up culture -Physical therapy Stage IV chronic kidney disease-kidney function stable at this time. Recent MRSA infection with bacteremia-she does not appear to be septic at this time and has stable vital signs. She has completed antibiotic therapy for the bacteremia. Leg appears to be healing well. Rheumatoid arthritis-chronic condition with stable symptoms. Maintenance issues - - DVT prophylaxis -mechanical - GI prophylaxis -PPI - Nutrition -regular diet - Keenan catheter -not indicated CODE STATUS -full code Admission justification -patient will be referred observation status to initiate antibiotics and for physical therapy Disposition -I would anticipate discharge home in 1 or 2 days Primary care physician -Dr Roverto Jones M.D. - Mortality Measure Prognosis:: Good
[2020-01-08] MEDS ORDERED: LORazepam 2 MG/ML SDV IVPUSH PRN (14:02)
[2020-01-08] MEDS ORDERED: Acetaminophen 325 MG Tab PO PRN (14:02)
[2020-01-08] MEDS ORDERED: Ondansetron 4 MG/2 ML SDV IV PRN (14:02)
[2020-01-08] MEDS ORDERED: Magnesium Hydroxide 400 MG/5 ML Susp 30 ML Cup PO PRN (14:02)
[2020-01-08] MEDS ORDERED: Albuterol 0.083% 2.5 MG/3 ML Neb Soln NEB PRN (14:02)
[2020-01-08] MEDS ORDERED: Ondansetron 4 MG Tab.DIS PO PRN (14:02)
[2020-01-08] MEDS: Sodium Chloride 0.9% 1,000 ML IV SCH (14:40)
[2020-01-08] MEDS: HYDRALAZINE 25 MG PO SCH ×2 (16:59→21:08)
[2020-01-08] MEDS: Pantoprazole 40 MG **PTOM PO SCH (16:59)
[2020-01-08] MEDS ORDERED: Fluticasone-Salmeterol 232-14 MCG Powder Inhalent INH PRN (17:00)
[2020-01-08] MEDS: CARVEDILOL 6.25 MG PO SCH ×2 (20:31→20:34)
[2020-01-08] MEDS: Lactobacillus Rhamnosus GG (Probiotic) Cap PO SCH (20:32)
[2020-01-08] MEDS ORDERED: Non-Formulary Medication 1 Each (Clonazepam [Klonopin] 0.5 MG) PO SCH (21:00)
[2020-01-08] MEDS ORDERED: Melatonin 3 MG Tab PO SCH (21:00)
[2020-01-08] MEDS ORDERED: ClonazePAM 0.5 MG Tab PO SCH (21:00)
[2020-01-09] MEDS: Sodium Chloride 0.9% 1,000 ML IV SCH (00:44)
[2020-01-09] MEDS: HYDRALAZINE 25 MG PO SCH ×2 (05:33→09:25)
[2020-01-09] MEDS: Pantoprazole 40 MG **PTOM PO SCH (07:43)
[2020-01-09] MEDS: CARVEDILOL 6.25 MG PO SCH (08:37)
[2020-01-09] MEDS: Lactobacillus Rhamnosus GG (Probiotic) Cap PO SCH (08:38)
[2020-01-09] MEDS ORDERED: PRAVASTATIN 20 MG PO SCH (09:00)
[2020-01-09] MEDS ORDERED: predniSONE 10 MG Tab PO SCH (09:00)
--- NOTE | 2020-01-09 10:23 | PCM.DCSUM1 ---
Discharge Summary - Hospital Course Brief History: 69-year-old female with history of rheumatoid arthritis, stage IV chronic kidney disease, recent MRSA infection with bacteremia who presented with weakness and confusion. She was admitted for management of a urinary tract infection. Diagnosis: Stroke: No - Discharge Data Discharge Date: 01/09/20 Discharge Disposition: Home, Self-Care 01 Condition: Good - Referral to Home Health Primary Care Physician: Roverto Dewey MD - Discharge Diagnosis/Problem(s) (1) Acute cystitis without hematuria SNOMED Code(s): 00335058 ICD Code: N30.00 - ACUTE CYSTITIS WITHOUT HEMATURIA Status: Acute Current Visit: Yes (2) Rheumatoid arthritis SNOMED Code(s): 16552794 ICD Code: M06.9 - RHEUMATOID ARTHRITIS, UNSPECIFIED Status: Chronic Current Visit: No Qualifiers: Rheumatoid factor presence: unspecified presence Laterality: unspecified laterality (3) CKD (chronic kidney disease) stage 4, GFR 15-29 ml/min SNOMED Code(s): 546181633 ICD Code: N18.4 - CHRONIC KIDNEY DISEASE, STAGE 4 (SEVERE) Status: Chronic Current Visit: Yes (4) Type 2 diabetes mellitus SNOMED Code(s): 15855076 ICD Code: E11.9 - TYPE 2 DIABETES MELLITUS WITHOUT COMPLICATIONS Status: Chronic Current Visit: No Qualifiers: Diabetes mellitus usp insulin use: without usp use Diabetes mellitus complication status: without complication Qualified Code(s): E11.9 - Type 2 diabetes mellitus without complications - Patient Summary/Data Consults: Consultations 01/09/20 07:00 PT Evaluation and Treatment [CONS] Routine Please Evaluate and Treat. PT Reason for Consult: Strengthening This query below is only for informational purposes and is not editable. Hospital Course: Betty presented to the emergency room with progressive weakness and confusion. Work-up in the emergency room was suggestive of a urinary tract infection. She was mildly dehydrated. She was started on ceftriaxone and cultures were sent to the lab. She received some IV fluids. Overnight following admission there were no acute issues. She did not have any fevers. Her vital signs were stable. By the morning after admission she is feeling a fair amount better. She has been up and about with no significant unsteadiness of her gait. Strength and appetite have been good. There may be some mild residual confusion but in general she is doing much better today. Urine culture is growing a gram-negative reji but identification is still pending. She feels well enough to go home at this time. I did talk to her who feels like she is doing well enough to come home at this point. She will get her second dose of IV antibiotics prior to discharge and then she will be on cefdinir for 3 more days. I will contact her and her tomorrow if the culture results reveal a resistant bacteria. She will follow-up with her primary care next week. She did have a recent cellulitis with MRSA bacteremia but her leg appears to be healing well and repeat blood cultures were negative at the time of discharge. - Patient Instructions Diet: Regular Diet as Tolerated Activity: As Tolerated Showering/Bathing: May Shower Notify Provider of: Fever, Increased Pain, Nausea and/or Vomiting Other/Special Instructions: 1. You were in the hospital for management of a urinary tract infection that caused confusion and weakness. Your condition is improving with IV fluids and antibiotic therapy. I do recommend ongoing antibiotic therapy with cefdinir (Omnicef). Please take 300 mg twice daily for six doses starting on Wednesday morning. Drink plenty of fluids to keep the urinary tract flushed out and to maintain hydration. 2. Continue your usual home medications as previously prescribed. - Discharge Plan *PRESCRIPTION DRUG MONITORING PROGRAM REVIEWED*: Not Applicable *COPY OF PRESCRIPTION DRUG MONITORING REPORT IN PATIENT YAW: Not Applicable Prescriptions/Med Rec: Cefdinir 300 mg PO BID #6 capsule Home Medications: Home Meds Amitriptyline [Elavil] 150 mg PO BEDTIME 09/15/13 [History] Cyclobenzaprine [Flexeril] 10 mg PO BID 09/15/13 [History] Ferrous Gluconate 240 mg PO DAILY 09/15/13 [History] Multivitamin [Multi-Vitamin Daily] 1 each PO DAILY 09/15/13 [History] predniSONE [Prednisone] 10 mg PO DAILY 09/15/13 [History] ClonazePAM [KlonoPIN] 0.5 mg PO BEDTIME 03/04/18 [History] carvediloL [Carvedilol] 6.25 mg PO BID 03/04/18 [History] Acetaminophen 2,000 mg PO BID 10/27/19 [History] Budesonide/Formoterol [Symbicort 160-4.5 MCG] 2 puff INH BID PRN 10/27/19 [ History] Calcitonin (Hobbs) [Miacalcin] 1 spray JOHN DAILY 10/27/19 [History] Diclofenac Sodium [Voltaren 1% Gel] 4 gram TOP QID PRN 10/27/19 [History] Pantoprazole Sodium [Protonix] 40 mg PO BID 10/27/19 [History] Pravastatin Sodium [Pravachol] 20 mg PO DAILY 10/27/19 [History] Tryptophan [l-Tryptophan] 2,000 mg PO DAILY PRN 10/27/19 [History] Ubidecarenone [Coq-10] 1 tab PO DAILY 10/27/19 [History] busPIRone [Buspar] 5 mg PO QID 10/27/19 [History] hydrALAZINE [Apresoline] 25 mg PO QID 10/27/19 [History] Lactobacillus Rhamnosus GG [Culturelle] 1 cap PO BID #60 cap 12/22/19 [Rx] Cefdinir 300 mg PO BID #6 capsule 01/09/20 [Rx] Oxygen Therapy Mode: Room Air Patient Handouts: Urinary Tract Infection, Adult Referrals: Roverto Dewey MD [Primary Care Provider] - 01/18/20 1:00 pm (1 week - f/u hospital stay for UTI with confusion Please arrive 15 minutes early to register for your appointment.) - Discharge Summary/Plan Comment DC Time >30 min.: No - Patient Data Vitals - Most Recent: Last Vital Signs Temp 37.5 C 01/09/20 07:36 Pulse 87 01/09/20 08:37 Resp 20 01/09/20 07:36 BP 134/70 01/09/20 09:25 Pulse Ox 97 01/09/20 07:36 Weight - Most Recent: 46.4 kg I&O - Last 24 hours: Intake & Output 01/08/20 01/09/20 01/09/20 22:59 06:59 14:59 Intake Total 1360 Output Total 600 750 Balance 760 -750 Lab Results - Last 24 hrs: Laboratory Results - last 24 hr 01/08/20 01/08/20 01/08/20 Range/Units 10:20 10:20 10:26 WBC 13.5 H (4.5-11.0) K/uL RBC 3.65 (3.30-5.50) M/uL Hgb 11.4 L (12.0-15.0) g/dL Hct 38.7 (36.0-48.0) % MCV 106 H (80-98) fL MCH 31 (27-31) pg MCHC 30 L (32-36) % Plt Count 422 H (150-400) K/uL Add Manual Diff Yes Neutrophils % (Manual) 62 (36-66) % Band Neutrophils % 5 (5-11) % Lymphocytes % (Manual) 22 L (24-44) % Monocytes % (Manual) 8 H (2-6) % Eosinophils % (Manual) 1 L (2-4) % Metamyelocytes % 2 % Sodium (140-148) mmol/L Potassium (3.6-5.2) mmol/L Chloride (100-108) mmol/L Carbon Dioxide (21-32) mmol/L Anion Gap (5.0-14.0) mmol/L BUN (7-18) mg/dL Creatinine (0.6-1.0) mg/dL Est Cr Clr Drug Dosing mL/min Estimated GFR (MDRD) (>60) Glucose (74-106) mg/dL Lactic Acid (0.4-2.0) mmol/L Calcium (8.5-10.1) mg/dL Total Bilirubin (0.2-1.0) mg/dL AST (15-37) U/L ALT (12-78) U/L Alkaline Phosphatase (46-116) U/L C-Reactive Protein 1.09 H (0.0-0.3) mg/dL Total Protein (6.4-8.2) g/dL Albumin (3.4-5.0) g/dL Globulin (2.3-3.5) g/dL Albumin/Globulin Ratio (1.2-2.2) Procalcitonin 0.10 ng/mL Urine Color (YELLOW) Urine Appearance (CLEAR) Urine pH (5.0-8.0) Ur Specific [place] (1.008-1.030) Urine Protein (NEGATIVE) mg/dL Urine Glucose (UA) (NEGATIVE) mg/dL Urine Ketones (NEGATIVE) mg/dL Urine Occult Blood (NEGATIVE) Urine Nitrite (NEGATIVE) Urine Bilirubin (NEGATIVE) Urine Urobilinogen (0.2-1.0) EU/dL Ur Leukocyte Esterase (NEGATIVE) Urine RBC (0-5) Urine WBC (0-5) Ur Epithelial Cells Amorphous Sediment Urine Bacteria Urine Mucus 01/08/20 01/08/20 01/08/20 Range/Units 10:26 10:26 10:43 WBC (4.5-11.0) K/uL RBC (3.30-5.50) M/uL Hgb (12.0-15.0) g/dL Hct (36.0-48.0) % MCV (80-98) fL MCH (27-31) pg MCHC (32-36) % Plt Count (150-400) K/uL Add Manual Diff Neutrophils % (Manual) (36-66) % Band Neutrophils % (5-11) % Lymphocytes % (Manual) (24-44) % Monocytes % (Manual) (2-6) % Eosinophils % (Manual) (2-4) % Metamyelocytes % % Sodium 141 (140-148) mmol/L Potassium 4.3 (3.6-5.2) mmol/L Chloride 108 (100-108) mmol/L Carbon Dioxide 20 L (21-32) mmol/L Anion Gap 17.3 H (5.0-14.0) mmol/L BUN 34 H D (7-18) mg/dL Creatinine 2.1 H (0.6-1.0) mg/dL Est Cr Clr Drug Dosing 18.00 mL/min Estimated GFR (MDRD) 23 L (>60) Glucose 130 H (74-106) mg/dL Lactic Acid 1.8 (0.4-2.0) mmol/L Calcium 8.5 (8.5-10.1) mg/dL Total Bilirubin 0.3 (0.2-1.0) mg/dL AST 30 (15-37) U/L ALT 41 (12-78) U/L Alkaline Phosphatase 159 H (46-116) U/L C-Reactive Protein (0.0-0.3) mg/dL Total Protein 5.6 L (6.4-8.2) g/dL Albumin 2.4 L (3.4-5.0) g/dL Globulin 3.2 (2.3-3.5) g/dL Albumin/Globulin Ratio 0.8 L (1.2-2.2) Procalcitonin ng/mL Urine Color Yellow (YELLOW) Urine Appearance Cloudy A (CLEAR) Urine pH 5.5 (5.0-8.0) Ur Specific [place] 1.020 (1.008-1.030) Urine Protein Negative (NEGATIVE) mg/dL Urine Glucose (UA) Negative (NEGATIVE) mg/dL Urine Ketones Negative (NEGATIVE) mg/dL Urine Occult Blood Negative (NEGATIVE) Urine Nitrite Negative (NEGATIVE) Urine Bilirubin Negative (NEGATIVE) Urine Urobilinogen 0.2 (0.2-1.0) EU/dL Ur Leukocyte Esterase Large H (NEGATIVE) Urine RBC Not seen (0-5) Urine WBC 75-100 H (0-5) Ur Epithelial Cells Moderate Amorphous Sediment Moderate Urine Bacteria Many Urine Mucus Not seen 01/09/20 01/09/20 Range/Units 05:59 05:59 WBC 12.7 H (4.5-11.0) K/uL RBC 3.51 (3.30-5.50) M/uL Hgb 11.1 L (12.0-15.0) g/dL Hct 37.2 (36.0-48.0) % MCV 106 H (80-98) fL MCH 32 H (27-31) pg MCHC 30 L (32-36) % Plt Count 380 (150-400) K/uL Add Manual Diff Neutrophils % (Manual) (36-66) % Band Neutrophils % (5-11) % Lymphocytes % (Manual) (24-44) % Monocytes % (Manual) (2-6) % Eosinophils % (Manual) (2-4) % Metamyelocytes % % Sodium 145 (140-148) mmol/L Potassium 4.1 (3.6-5.2) mmol/L Chloride 112 H (100-108) mmol/L Carbon Dioxide 22 (21-32) mmol/L Anion Gap 15.1 H (5.0-14.0) mmol/L BUN 26 H (7-18) mg/dL Creatinine 1.7 H (0.6-1.0) mg/dL Est Cr Clr Drug Dosing 22.23 mL/min Estimated GFR (MDRD) 30 L (>60) Glucose 86 (74-106) mg/dL Lactic Acid (0.4-2.0) mmol/L Calcium 8.1 L (8.5-10.1) mg/dL Total Bilirubin (0.2-1.0) mg/dL AST (15-37) U/L ALT (12-78) U/L Alkaline Phosphatase (46-116) U/L C-Reactive Protein (0.0-0.3) mg/dL Total Protein (6.4-8.2) g/dL Albumin (3.4-5.0) g/dL Globulin (2.3-3.5) g/dL Albumin/Globulin Ratio (1.2-2.2) Procalcitonin ng/mL Urine Color (YELLOW) Urine Appearance (CLEAR) Urine pH (5.0-8.0) Ur Specific [place] (1.008-1.030) Urine Protein (NEGATIVE) mg/dL Urine Glucose (UA) (NEGATIVE) mg/dL Urine Ketones (NEGATIVE) mg/dL Urine Occult Blood (NEGATIVE) Urine Nitrite (NEGATIVE) Urine Bilirubin (NEGATIVE) Urine Urobilinogen (0.2-1.0) EU/dL Ur Leukocyte Esterase (NEGATIVE) Urine RBC (0-5) Urine WBC (0-5) Ur Epithelial Cells Amorphous Sediment Urine Bacteria Urine Mucus JOSHUA Results - Last 24 hrs: Microbiology 01/08/20 11:35 Urine Culture - Preliminary Urine, Quick Cath (In-Out) Med Orders - Current: Current Medications Acetaminophen (Tylenol) 650 mg PO Q4H PRN PRN Reason: Pain (Mild 1-3)/fever Last Admin: 01/09/20 07:47 Dose: 650 mg Albuterol (Proventil Neb Soln) 2.5 mg NEB Q4H PRN PRN Reason: Shortness Of Breath/wheezing Carvedilol (Coreg) 6.25 mg PO BID [facility] Last Admin: 01/09/20 08:37 Dose: 6.25 mg Clonazepam (Klonopin) 0.5 mg PO BEDTIME [facility] Last Admin: 01/08/20 20:32 Dose: 0.5 mg Hydralazine HCl (Apresoline) 25 mg PO QID [facility] Last Admin: 01/09/20 09:25 Dose: 25 mg Ceftriaxone Sodium 1 gm/ (Sodium Chloride) 50 mls @ 100 mls/hr IV Q24H [facility] Sodium Chloride (Normal Saline) 1,000 mls @ 100 mls/hr IV ASDIRECTED [facility] Last Admin: 01/09/20 00:44 Dose: 100 mls/hr Lactobacillus Rhamnosus (Culturelle) 1 cap PO BID [facility] Last Admin: 01/09/20 08:38 Dose: 1 cap Lorazepam (Ativan) 0.5 mg IVPUSH Q4H PRN PRN Reason: Nausea/Vomiting Magnesium Hydroxide (Milk Of Magnesia) 30 ml PO Q12H PRN PRN Reason: Constipation Melatonin (Melatonin) 9 mg PO BEDTIME [facility] Last Admin: 01/08/20 20:32 Dose: 9 mg Ondansetron HCl (Zofran Odt) 4 mg PO Q6H PRN PRN Reason: Nausea able to take PO Ondansetron HCl (Zofran) 4 mg IV Q6H PRN PRN Reason: Nausea/Vomiting Pantoprazole Sodium (Protonix) 40 mg PO BIDAC [facility] Last Admin: 01/09/20 07:43 Dose: 40 mg Pravastatin Sodium (Pravachol) 20 mg PO DAILY [facility] Last Admin: 01/09/20 08:38 Dose: 20 mg Prednisone (Prednisone) 10 mg PO DAILY [facility] Last Admin: 01/09/20 08:38 Dose: 10 mg Fluticasone/Salmeterol (Fluticasone-Salmeterol 232-14 Mcg Powder Inha) 1 puff INH BIDRT PRN PRN Reason: Shortness of Breath Senna/Docusate Sodium (Senna Plus) 1 tab PO BID PRN PRN Reason: Constipation Discontinued Medications Sodium Chloride (Normal Saline) 500 mls @ 1,000 mls/hr IV .BOLUS ONE Stop: 01/08/20 10:53 Last Admin: 01/08/20 10:31 Dose: 1,000 mls/hr Ceftriaxone Sodium 1 gm/ (Sodium Chloride) 50 mls @ 100 mls/hr IV ONETIME ONE Stop: 01/08/20 11:53 Last Admin: 01/08/20 11:52 Dose: 100 mls/hr
[2020-01-09] MEDS ORDERED: cefTRIAXone 1 GM in Sodium Chloride 0.9% 50 ML IV SCH (12:00)
== END 2020-01-09 13:30 | disposition home or self-care (01) ==
LOC: JP.ED 09:50 → JP.ICU 12:53
PROVIDERS: ADMIT Internal Medicine; ATTEND Internal Medicine
DX: N30.00 Acute cystitis without hematuria (principal); M06.9 Rheumatoid arthritis, unspecified; I12.9 Hypertensive chronic kidney disease with stage 1 through stage 4 chronic kidney disease, or unspecified chronic kidney disease; E11.22 Type 2 diabetes mellitus with diabetic chronic kidney disease; N18.4 Chronic kidney disease, stage 4 (severe); L03.115 Cellulitis of right lower limb; B95.62 Methicillin resistant Staphylococcus aureus infection as the cause of diseases classified elsewhere; Z79.899 Other long term (current) drug therapy; Z88.8 Allergy status to other drugs, medicaments and biological substances
CPT/HCPCS: 36415; 71045; 80048; 80053; 81001; 83605; 84145; 85025; 85027; 86140; 87040; 87086; 87088; 87186; 96361; 96365; 96366; 99285; A9270; G0378; J0696; J7030; J7050; J7512; 99217; 99218; 99283

== ENCOUNTER 2020-10-03 07:31 | Day surgery (SDC) | payer MEDICARE, BC ==
[2020-10-03] MEDS ORDERED: Sodium Chloride 0.9% 10 ML Syringe FLUSH PRN (08:00)
--- NOTE | 2020-10-03 12:27 | OR ---
DATE OF PROCEDURE: 10/03/2020 SURGEON: Ria Godoy MD POSTOPERATIVE CARE: Postoperative care will be provided mainly at the [address] [place] [address] [facility] in conjunction with [facility]. PREOPERATIVE DIAGNOSIS: Cataract, right eye. POSTOPERATIVE DIAGNOSIS: Cataract, right eye. PROCEDURE: Phacoemulsification with intraocular lens placement, right eye. ANESTHESIA: Topical and intracameral. ESTIMATED BLOOD LOSS: Minimal. COMPLICATIONS: None. PATHOLOGY SPECIMENS: None. SURGICAL FINDINGS: None. INDICATION FOR PROCEDURE: The patient is a 70-year-old female with history of a visually significant cataract in the right eye, which interfered with activities of daily living. This consisted of a nuclear sclerosis cataract. Following careful discussion of the risks, benefits and alternatives to cataract extraction with intraocular lens placement including blindness and , the patient elected to proceed, and informed, written consent was obtained prior to the procedure. DESCRIPTION OF THE PROCEDURE: The patient was previously identified, and a greg placed above the right eye. All sources, including the patient, indicated that the right eye was the correct eye. The patient was subsequently taken to the operating room where standard monitors were applied. The patient was then prepped and draped in the usual sterile fashion for ophthalmic surgery. Attention was first directed at the 12 o'clock position where a paracentesis port was fashioned. Shugar solution followed by Viscoat was instilled into the eye. Attention was then directed to the 8:30 position where a triplanar incision was made in a near-clear manner using a keratome. A continuous capsulorrhexis was then made using a combination of the cystotome and Utrata forceps. Hydrodissection was achieved using a balanced salt solution, and the lens rotated nicely. Phacoemulsification was then done using a modified [id number] technique without complication. Phaco time was 6.04 CDE. The remaining cortex was removed using the irrigation/aspiration handpiece. Provisc was then instilled into the eye. A Technis lens, model DCB00, at 13.0 Diopters was then placed in the capsular bag using an [place] injector. The remaining viscoelastic was removed using the irrigation/aspiration forceps. All wounds were then checked and found to be watertight. The lid speculum and drapes were removed. Maxitrol ointment was placed in the patient's right eye, and the eye was shielded. The patient tolerated the procedure well. The patient was instructed to follow up tomorrow. All needle and sponge counts were correct at the end of the procedure. There were no surgical findings. Ria Godoy MD /[id number]
== END 2020-10-03 09:18 | disposition home or self-care (01) ==
LOC: JP.SDS 07:31
PROVIDERS: ATTEND Ophthalmology
DX: E11.36 Type 2 diabetes mellitus with diabetic cataract (principal); H25.11 Age-related nuclear cataract, right eye; I12.9 Hypertensive chronic kidney disease with stage 1 through stage 4 chronic kidney disease, or unspecified chronic kidney disease; E11.22 Type 2 diabetes mellitus with diabetic chronic kidney disease; N18.9 Chronic kidney disease, unspecified; E78.00 Pure hypercholesterolemia, unspecified; K21.9 Gastro-esophageal reflux disease without esophagitis; Z88.8 Allergy status to other drugs, medicaments and biological substances; Z98.890 Other specified postprocedural states
CPT/HCPCS: V2632

== ENCOUNTER 2020-10-17 08:18 | Day surgery (SDC) | payer MEDICARE, BC ==
[2020-10-17] MEDS ORDERED: Sodium Chloride 0.9% 10 ML Syringe FLUSH PRN (09:00)
--- NOTE | 2020-10-17 15:43 | OR ---
DATE OF PROCEDURE: 10/17/2020 SURGEON: Ria Godoy MD POSTOPERATIVE CARE: Postoperative care will be provided mainly at the [address] [place] [address] [facility] in conjunction with [facility]. PREOPERATIVE DIAGNOSIS: Cataract, left eye. POSTOPERATIVE DIAGNOSIS: Cataract, left eye. PROCEDURE: Phacoemulsification with intraocular lens placement, left eye. ANESTHESIA: Topical and intracameral. ESTIMATED BLOOD LOSS: Minimal. COMPLICATIONS: None. PATHOLOGY SPECIMENS: None. SURGICAL FINDINGS: None. INDICATION FOR PROCEDURE: The patient is a 70-year-old female with history of a visually significant cataract in the left eye, which interfered with activities of daily living. This consisted of a nuclear sclerosis cataract. Following careful discussion of the risks, benefits and alternatives to cataract extraction with intraocular lens placement including blindness and , the patient elected to proceed, and informed, written consent was obtained prior to the procedure. DESCRIPTION OF THE PROCEDURE: The patient was previously identified, and a greg placed above the left eye. All sources, including the patient, indicated that the left eye was the correct eye. The patient was subsequently taken to the operating room where standard monitors were applied. The patient was then prepped and draped in the usual sterile fashion for ophthalmic surgery. Attention was first directed at the 12 o'clock position where a paracentesis port was fashioned. Shugar solution followed by Viscoat was instilled into the eye. Attention was then directed to the 8:30 position where a triplanar incision was made in a near-clear manner using a keratome. A continuous capsulorrhexis was then made using a combination of the cystotome and Utrata forceps. Hydrodissection was achieved using a balanced salt solution, and the lens rotated nicely. Phacoemulsification was then done using a modified [id number] technique without complication. Phaco time was 4.35 CDE. The remaining cortex was removed using the irrigation/aspiration handpiece. Provisc was then instilled into the eye. A Technis lens, model DCB00, at 15.0 Diopters was then placed in the capsular bag using an [place] injector. The remaining viscoelastic was removed using the irrigation/aspiration forceps. All wounds were then checked and found to be watertight. The lid speculum and drapes were removed. Maxitrol ointment was placed in the patient's left eye, and the eye was shielded. The patient tolerated the procedure well. The patient was instructed to follow up tomorrow. All needle and sponge counts were correct at the end of the procedure. There were no surgical findings. Ria Godoy MD /[id number]
== END 2020-10-17 10:11 | disposition home or self-care (01) ==
LOC: JP.SDS 08:18
PROVIDERS: ATTEND Ophthalmology
DX: E11.36 Type 2 diabetes mellitus with diabetic cataract (principal); H25.12 Age-related nuclear cataract, left eye; I12.9 Hypertensive chronic kidney disease with stage 1 through stage 4 chronic kidney disease, or unspecified chronic kidney disease; E11.22 Type 2 diabetes mellitus with diabetic chronic kidney disease; N18.30 Chronic kidney disease, stage 3 unspecified; E78.5 Hyperlipidemia, unspecified
CPT/HCPCS: V2632

== ENCOUNTER 2021-02-10 22:39 | Emergency (ER) | payer MEDICARE, BC | END 2021-02-11 00:04 | disposition left against medical advice (07) | LOC: JP.ED 22:39 | DX: Z53.21 Procedure and treatment not carried out due to patient leaving prior to being seen by health care provider (principal) ==

== ENCOUNTER 2021-04-10 12:31 | Emergency (ER) | payer MEDICARE, BC ==
[2021-04-10] MEDS ORDERED: Ketorolac 30 MG/ML SDV IM ONE (13:57)
--- NOTE | 2021-04-10 13:59 | EDM.PDOC ---
ED HPI GENERAL MEDICAL PROBLEM - General Chief Complaint: Head Injury Stated Complaint: FELL 04/09 -HEAD HURTS AFTER FALL Time Seen by Provider: 04/10/21 13:38 Source of Information: Reports: Patient, Family, RN Notes Reviewed History Limitations: Reports: No Limitations - History of Present Illness INITIAL COMMENTS - FREE TEXT/NARRATIVE: 70-year-old female presents emergency department day following a head injury, she injured herself 3 days ago and now has "worst headache of my life". Did contact her primary care provider who was sent to the emergency department for further evaluation. She states she has no loss of bowel or bladder the headache seems to move around. She is no nausea no vomiting. Headache Pain Score (Numeric/FACES): 9 - Related Data Allergies Allergy/AdvReac Type Severity Reaction Status Date / Time amlodipine [From Norvasc] AdvReac Muscle Verified 10/17/20 08:43 Aches indomethacin [From Indocin] AdvReac Nausea Verified 10/17/20 08:43 indomethacin sodium AdvReac Nausea Verified 10/17/20 08:43 [From Indocin] levofloxacin [From Levaquin] AdvReac Leg Cramps Verified 10/17/20 08:43 naproxen [From Naprosyn] AdvReac Nausea Verified 10/17/20 08:43 paroxetine [From Paxil] AdvReac Muscle Verified 10/17/20 08:43 Aches trazodone AdvReac Nausea Verified 10/17/20 08:43 Home Meds: Home Meds Amitriptyline [Elavil] 150 mg PO BEDTIME 09/15/13 [History] Multivitamin [Multi-Vitamin Daily] 1 each PO DAILY 09/15/13 [History] predniSONE [Prednisone] 10 mg PO DAILY 09/15/13 [History] ClonazePAM [KlonoPIN] 0.5 mg PO BEDTIME 03/04/18 [History] carvediloL [Carvedilol] 6.25 mg PO BID 03/04/18 [History] Acetaminophen 2,000 mg PO BID 10/27/19 [History] Diclofenac Sodium [Voltaren 1% Gel] 4 gram TOP QID PRN 10/27/19 [History] Pantoprazole Sodium [Protonix] 40 mg PO DAILY 10/27/19 [History] Tryptophan [l-Tryptophan] 2,000 mg PO DAILY PRN 10/27/19 [History] Ubidecarenone [Coq-10] 1 tab PO DAILY 10/27/19 [History] busPIRone [Buspar] 5 mg PO TID 10/27/19 [History] hydrALAZINE [Apresoline] 25 mg PO QID 10/27/19 [History] Ascorbic Acid [Vitamin C] 1,000 mg PO DAILY 10/01/20 [History] [place]-3/DHA/Epa/Fish Oil [[place] 3 500 Softgel] 1 cap PO DAILY 10/01/20 [History] cilostazoL [Pletal] 100 mg PO BID 10/01/20 [History] tiZANidine [Zanaflex] 4 mg PO BID 10/01/20 [History] Past Medical History HEENT History: Reports: Cataract, Impaired Vision Cardiovascular History: Reports: High Cholesterol, Hypertension Respiratory History: Reports: Asthma Gastrointestinal History: Reports: GERD Genitourinary History: Reports: Renal Disease 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: Musculoskeletal History: Reports: Osteoporosis, RA, Other (See Below) Other Musculoskeletal History: Polymyalgia rheumatica Psychiatric History: Reports: Anxiety, Other (See Below) Other Psychiatric History: forgettful Endocrine/Metabolic History: Reports: Hyperparathyroidism Hematologic History: Reports: Other (See Below) Other Hematologic History: elevated WBC, refered hematology Dermatologic History: Reports: Cellulitis - Infectious Disease History Infectious Disease History: Reports: Chicken Pox - Past Surgical History HEENT Surgical History: Reports: None Cardiovascular Surgical History: Reports: None Respiratory Surgical History: Reports: None GI Surgical History: Reports: Appendectomy, Colon Female Surgical History: Reports: Section Dermatological Surgical History: Reports: Other (See Below) Social & Family History - Family History Family Medical History: No Pertinent Family History - Tobacco Use Tobacco Use Status *Q: Never Tobacco User - Caffeine Use Caffeine Use: Reports: Coffee - Recreational Drug Use Recreational Drug Use: No ED ROS GENERAL - Review of Systems Review Of Systems: See Below Constitutional: Reports: No Symptoms HEENT: Reports: No Symptoms Respiratory: Reports: No Symptoms Cardiovascular: Reports: No Symptoms GI/Abdominal: Reports: No Symptoms Neurological: Reports: Headache ED EXAM, HEAD INJURY - Physical Exam Exam: See Below Exam Limited By: No Limitations General Appearance: Alert, WD/WN, No Apparent Distress Head: Atraumatic, Normocephalic Nexus Criteria: No: Posterior, Midline Cervical Tenderness, Evidence of Intoxication, Altered Level of Consciousness, Focal Neurological Deficit, Painful Distraction Injuries Eyes: Bilateral Eye: EOMI, Normal Inspection Respiratory: No Respiratory Distress, Lungs Clear, Normal Breath Sounds, No Accessory Muscle Use, Chest Non-Tender Cardiovascular: Regular Rate, Rhythm, No Murmur GI/Abdominal Exam: Soft, Non-Tender Course - Vital Signs Last Recorded V/S: Last Vital Signs Temp 97.1 F 04/10/21 13:02 Pulse 80 04/10/21 13:02 Resp 16 04/10/21 13:02 BP 158/96 H 04/10/21 13:02 Pulse Ox 97 04/10/21 13:02 - Orders/Labs/Meds Meds: Medications Discontinued Medications Generic Name Dose Route Start Last Admin Trade Name Yosef PRN Reason Stop Dose Admin Ketorolac Tromethamine 30 mg 04/10/21 13:57 04/10/21 14:03 Ketorolac 30 Mg/Ml Sdv IM 04/10/21 13:58 30 mg ONETIME ONE Administration Departure - Departure Time of Disposition: 15:56 Disposition: Home, Self-Care 01 Condition: Fair Clinical Impression: Concussion injury of brain - Discharge Information Instructions: Concussion, Adult, [id number] Referrals: Roverto Dewey MD [Primary Care Provider] - Forms: ED Department Discharge Additional Instructions: Please follow-up with your primary care next week call return to the emergency department worsening of symptoms Sepsis Event Note (ED) - Focused Exam Vital Signs: Vital Signs Temp Pulse Resp BP Pulse Ox 04/10/21 13:02 97.1 F 80 16 158/96 H 97 - Assessment/Plan Plan: Assessment Acuity = acute Site and laterality = head injury suspicious for concussion Etiology = secondary to fall Manifestations = headache Location of injury = Home Lab values = CT of the head shows no acute process Plan An order has been placed for concussion clinic as she has an appointment with her primary care next week This note was dictated using [employer] voice recognition software please call with any questions on syntax or grammar.
--- NOTE | 2021-04-10 15:37 | CT ---
Head wo Cont CLINICAL HISTORY: Fall COMPARISON: MR brain 01/03/2020 TECHNIQUE: Transverse scans were obtained from the base of the skull through the vertex without IV contrast on a multislice, multidetector CT scanner. Auto dosage reduction and iterative reconstruction techniques employed. FINDINGS: No focal abnormal parenchymal density is identified. There is no mass effect, hemorrhage, or extraaxial collection. The basal cisterns and sulci over the convexities are prominent. The ventricles are normal for age. IMPRESSION: No acute intracranial process Age-related atrophy
== END 2021-04-10 16:07 | disposition home or self-care (01) ==
LOC: JP.ED 12:31
DX: S06.0X0A Concussion without loss of consciousness, initial encounter (principal); E78.00 Pure hypercholesterolemia, unspecified; I10 Essential (primary) hypertension; K21.9 Gastro-esophageal reflux disease without esophagitis; Z79.899 Other long term (current) drug therapy; Z88.5 Allergy status to narcotic agent; Z88.8 Allergy status to other drugs, medicaments and biological substances; W18.09XA Striking against other object with subsequent fall, initial encounter
CPT/HCPCS: 70450; 96372; 99283; J1885

== ENCOUNTER 2021-05-29 11:30 | Observation (INO) | payer MEDICARE, BC ==
[2021-05-29] MEDS ORDERED: Sodium Chloride 0.9% 10 ML Syringe FLUSH PRN (12:07)
--- NOTE | 2021-05-29 12:21 | EDM.PDOC ---
ED HPI GENERAL MEDICAL PROBLEM - General Chief Complaint: Back Pain or Injury Stated Complaint: IN A LOT OF PAIN BACK PAIN Time Seen by Provider: 05/29/21 12:05 Source of Information: Reports: Patient, Old Records, RN History Limitations: Reports: No Limitations - History of Present Illness INITIAL COMMENTS - FREE TEXT/NARRATIVE: 70 yo female presents with complaints of mid back pain after a fall and also of in general frequent falls. Has as well LOVE. No fever, cough or CP. Thinks her BP runs about 120 systolic normally. Did eat breakfast today. Take acetaminophen 1000 mg qid for her arthritis, added 1/2 of a 50 mg Tramadol today for her new pain with partial relief. Complains of being forgetful. Wonders about having taken her meds twice? Onset: Unknown/Unsure (trend toward falling more often) Duration: Week(s):, Getting Worse Location: Reports: Back (today has mid back pain from her fall) Quality: Reports: Ache Severity: Moderate Improves with: Reports: None Worsens with: Reports: None Context: Reports: Trauma (today's back pain), Other (frequent falling unknown cause) Associated Symptoms: Reports: Shortness of Breath (with exertion), Other (some dizziness before falling). 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: Other (see below) (Tramadol 25 mg and acetaminophen 1000 mg) Back Pain Score (Numeric/FACES): 10 - Related Data Allergies Allergy/AdvReac Type Severity Reaction Status Date / Time amlodipine [From Norvasc] AdvReac Muscle Verified 05/29/21 11:57 Aches indomethacin [From Indocin] AdvReac Nausea Verified 05/29/21 11:57 indomethacin sodium AdvReac Nausea Verified 05/29/21 11:57 [From Indocin] levofloxacin [From Levaquin] AdvReac Leg Cramps Verified 05/29/21 11:57 naproxen [From Naprosyn] AdvReac Nausea Verified 05/29/21 11:57 paroxetine [From Paxil] AdvReac Muscle Verified 05/29/21 11:57 Aches trazodone AdvReac Nausea Verified 05/29/21 11:57 Home Meds: Home Meds Amitriptyline [Elavil] 150 mg PO BEDTIME 09/15/13 [History] Multivitamin [Multi-Vitamin Daily] 1 each PO DAILY 09/15/13 [History] predniSONE [Prednisone] 10 mg PO DAILY 09/15/13 [History] carvediloL [Carvedilol] 6.25 mg PO BID 03/04/18 [History] Acetaminophen 2,000 mg PO BID 10/27/19 [History] Diclofenac Sodium [Voltaren 1% Gel] 4 gram TOP QID PRN 10/27/19 [History] Pantoprazole Sodium [Protonix] 40 mg PO DAILY 10/27/19 [History] Tryptophan [l-Tryptophan] 2,000 mg PO DAILY PRN 10/27/19 [History] Ubidecarenone [Coq-10] 1 tab PO DAILY 10/27/19 [History] busPIRone [Buspar] 5 mg PO TID 10/27/19 [History] hydrALAZINE [Apresoline] 25 mg PO QID 10/27/19 [History] Ascorbic Acid [Vitamin C] 1,000 mg PO DAILY 10/01/20 [History] [place]-3/DHA/Epa/Fish Oil [[place] 3 500 Softgel] 1 cap PO DAILY 10/01/20 [History] cilostazoL [Pletal] 100 mg PO BID 10/01/20 [History] tiZANidine [Zanaflex] 4 mg PO BID 10/01/20 [History] traMADol [Ultram] 50 mg PO Q6H PRN 05/29/21 [History] Past Medical History HEENT History: Reports: Cataract, Impaired Vision Cardiovascular History: Reports: High Cholesterol, Hypertension Respiratory History: Reports: Asthma Gastrointestinal History: Reports: GERD Genitourinary History: Reports: Renal Disease 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: Reports: Musculoskeletal History: Reports: Osteoporosis, RA, Other (See Below) Other Musculoskeletal History: Polymyalgia rheumatica Psychiatric History: Reports: Anxiety, Other (See Below) Other Psychiatric History: forgettful Endocrine/Metabolic History: Reports: Hyperparathyroidism Hematologic History: Reports: Other (See Below) Other Hematologic History: elevated WBC, refered hematology Dermatologic History: Reports: Cellulitis - Infectious Disease History Infectious Disease History: Reports: Chicken Pox - Past Surgical History HEENT Surgical History: Reports: None Cardiovascular Surgical History: Reports: None Respiratory Surgical History: Reports: None GI Surgical History: Reports: Appendectomy, Colon Female Surgical History: Reports: Section Dermatological Surgical History: Reports: Other (See Below) Social & Family History - Family History Family Medical History: No Pertinent Family History - Tobacco Use Tobacco Use Status *Q: Never Tobacco User - Caffeine Use Caffeine Use: Reports: Coffee - Recreational Drug Use Recreational Drug Use: No ED ROS GENERAL - Review of Systems Review Of Systems: See Below Constitutional: Reports: No Symptoms HEENT: Reports: No Symptoms Respiratory: Reports: No Symptoms Cardiovascular: Reports: Dyspnea on Exertion. Denies: Chest Pain Endocrine: Reports: No Symptoms GI/Abdominal: Reports: No Symptoms : Reports: No Symptoms Musculoskeletal: Reports: Back Pain (from today's fall) Skin: Reports: No Symptoms Neurological: Reports: Dizziness (at times) ED EXAM, GENERAL - Physical Exam Exam: See Below Exam Limited By: No Limitations General Appearance: Alert, WD/WN, No Apparent Distress Eye Exam: Bilateral Eye: Normal Inspection Ears: Normal External Exam, Normal Canal, Hearing Grossly Normal Ear Exam: Bilateral Ear: Auricle Normal, Canal Normal Nose: Normal Inspection, No Blood Throat/Mouth: Normal Inspection, Normal Lips, Normal Oropharynx, Normal Voice, No Airway Compromise, Other (slightly dry oral mucosa) Head: Atraumatic, Normocephalic Neck: Normal Inspection, Supple, Non-Tender Respiratory/Chest: No Respiratory Distress, Crackles (scattered) Cardiovascular: Regular Rate, Rhythm, No Edema GI/Abdominal: Soft, Non-Tender Back Exam: Normal Inspection. No: CVA Tenderness (R), CVA Tenderness (L), Decreased Range of Motion, Paraspinal Tenderness, Vertebral Tenderness Extremities: Normal Inspection, Normal Range of Motion, Non-Tender, No Pedal Edema. No: Pedal Edema Neurological: Alert, Oriented, CN II-XII Intact, Normal Cognition, No Motor/Sensory Deficits Psychiatric: Normal Affect, Normal Mood Skin Exam: Warm, Dry, Intact, Normal Color, No Rash #1 Interpretation EKG Date: 05/29/21 Time: 13:05 Rhythm: NSR Rate (Beats/Min): 67 [place]: Normal P-Wave: Present QRS: Normal ST-T: Normal QT: Normal Comparison: No Change Course - Vital Signs Text/Narrative:: Dr. Jones called @ 1355h Last Recorded V/S: Last Vital Signs Temp 35.6 C L 05/29/21 11:56 Pulse 74 05/29/21 14:28 Resp 21 H 05/29/21 14:28 BP 120/67 05/29/21 14:28 Pulse Ox 98 05/29/21 14:28 - Orders/Labs/Meds Orders: Active Orders 24 hr Category Date Time Status VL Duplex Lwr Ext Veins Comp [US] Stat Exams 05/29/21 13:54 Ordered Sodium Chloride 0.9% [Saline Flush] Med 05/29/21 12:07 Active 10 ml FLUSH ASDIRECTED PRN Saline Lock Insert [OM.PC] Routine Oth 05/29/21 12:07 Ordered EKG 12 Lead [EK] Routine Ther 05/29/21 13:00 Ordered Medication Orders Sodium Chloride (Sodium Chloride 0.9% 10 Ml Syringe) 10 ml FLUSH ASDIRECTED PRN PRN Reason: Keep Vein Open Last Admin: 05/29/21 12:24 Dose: 10 ml Documented by: PREILOR Labs: Laboratory Tests 05/29/21 05/29/21 05/29/21 Range/Units 12:22 12:22 12:34 WBC 11.9 H (4.5-11.0) K/uL RBC 3.70 (3.30-5.50) M/uL Hgb 11.8 L (12.0-15.0) g/dL Hct 37.5 (36.0-48.0) % MCV 101 H (80-98) fL MCH 32 H (27-31) pg MCHC 32 (32-36) % Plt Count 296 (150-400) K/uL D-Dimer, Quantitative 3676.59 H (0.0-500.0) ng/mL Sodium 140 (140-148) mmol/L Potassium 4.6 (3.6-5.2) mmol/L Chloride 108 (100-108) mmol/L Carbon Dioxide 20 L (21-32) mmol/L Anion Gap 16.6 H (5.0-14.0) mmol/L BUN 60 H D (7-18) mg/dL Creatinine 2.7 H D (0.6-1.0) mg/dL Est Cr Clr Drug Dosing 14.21 mL/min Estimated GFR (MDRD) 17 L (>60) Glucose 174 H (74-106) mg/dL Calcium 9.2 (8.5-10.1) mg/dL Troponin I 0.077 H* (0.000-0.056) ng/mL Urine Color (YELLOW) Urine Appearance (CLEAR) Urine pH (5.0-8.0) Ur Specific [place] (1.008-1.030) Urine Protein (NEGATIVE) mg/dL Urine Glucose (UA) (NEGATIVE) mg/dL Urine Ketones (NEGATIVE) mg/dL Urine Occult Blood (NEGATIVE) Urine Nitrite (NEGATIVE) Urine Bilirubin (NEGATIVE) Urine Urobilinogen (0.2-1.0) EU/dL Ur Leukocyte Esterase (NEGATIVE) Urine RBC (0-5) Urine WBC (0-5) Ur Epithelial Cells Amorphous Sediment Urine Bacteria Urine Mucus SARS-CoV-2 RNA (SABRINA) (NEGATIVE) 05/29/21 05/29/21 Range/Units 12:54 13:02 WBC (4.5-11.0) K/uL RBC (3.30-5.50) M/uL Hgb (12.0-15.0) g/dL Hct (36.0-48.0) % MCV (80-98) fL MCH (27-31) pg MCHC (32-36) % Plt Count (150-400) K/uL D-Dimer, Quantitative (0.0-500.0) ng/mL Sodium (140-148) mmol/L Potassium (3.6-5.2) mmol/L Chloride (100-108) mmol/L Carbon Dioxide (21-32) mmol/L Anion Gap (5.0-14.0) mmol/L BUN (7-18) mg/dL Creatinine (0.6-1.0) mg/dL Est Cr Clr Drug Dosing mL/min Estimated GFR (MDRD) (>60) Glucose (74-106) mg/dL Calcium (8.5-10.1) mg/dL Troponin I (0.000-0.056) ng/mL Urine Color Yellow (YELLOW) Urine Appearance Slightly cloudy A (CLEAR) Urine pH 5.0 (5.0-8.0) Ur Specific [place] 1.015 (1.008-1.030) Urine Protein Trace H (NEGATIVE) mg/dL Urine Glucose (UA) Negative (NEGATIVE) mg/dL Urine Ketones Negative (NEGATIVE) mg/dL Urine Occult Blood Negative (NEGATIVE) Urine Nitrite Negative (NEGATIVE) Urine Bilirubin Negative (NEGATIVE) Urine Urobilinogen 0.2 (0.2-1.0) EU/dL Ur Leukocyte Esterase Small H (NEGATIVE) Urine RBC 0-5 (0-5) Urine WBC 0-5 (0-5) Ur Epithelial Cells Few Amorphous Sediment Not seen Urine Bacteria Few Urine Mucus Not seen SARS-CoV-2 RNA (SABRINA) Negative (NEGATIVE) Meds: Medications Generic Name Dose Route Start Last Admin Trade Name Freq PRN Reason Stop Dose Admin Sodium Chloride 10 ml 05/29/21 12:07 05/29/21 12:24 Sodium Chloride 0.9% 10 Ml Syringe FLUSH 10 ml ASDIRECTED PRN Administration Keep Vein Open Discontinued Medications Generic Name Dose Route Start Last Admin Trade Name Freq PRN Reason Stop Dose Admin Lactated Ringer's 1,000 mls @ 1,000 mls/hr 05/29/21 12:53 05/29/21 13:05 Ringers, Lactated IV 05/29/21 13:52 1,000 mls/hr BOLUS ONE Administration - Radiology Interpretation Free Text/Narrative:: CXR-neg Venous dopplers of both LE's-neg both legs Departure - Departure Time of Disposition: 14:50 Disposition: Refer to Observation Condition: Poor Clinical Impression: Dehydration, Elevated glucose, Elevated d-dimer CRF (chronic renal failure) Qualifiers: Chronic kidney disease stage: stage 4 (severe) Qualified Code(s): N18.4 - Chronic kidney disease, stage 4 (severe) Hypotension Qualifiers: Hypotension type: unspecified hypotension type Qualified Code(s): I95.9 - Hypotension, unspecified - Discharge Information *PRESCRIPTION DRUG MONITORING PROGRAM REVIEWED*: Not Applicable *COPY OF PRESCRIPTION DRUG MONITORING REPORT IN PATIENT YAW: Not Applicable Referrals: Roverto Dewey MD [Primary Care Provider] - Forms: ED Department Discharge Sepsis Event Note (ED) - Evaluation Sepsis Screening Result: No Definite Risk - Focused Exam Vital Signs: Vital Signs Temp Pulse Resp BP Pulse Ox 05/29/21 14:28 74 21 H 120/67 98 05/29/21 13:55 68 23 H 105/63 96 05/29/21 13:14 71 25 H 97/56 L 99 05/29/21 12:52 70 30 H 111/56 L 97 05/29/21 12:15 68 34 H 89/48 L 99 05/29/21 11:56 35.6 C L 69 38 H 82/50 L 97 05/29/21 11:44 35.6 C L 69 38 H 82/50 L 97 - My Orders Last 24 Hours: My Active Orders 05/29/21 12:07 Sodium Chloride 0.9% [Saline Flush] 10 ml FLUSH ASDIRECTED PRN Saline Lock Insert [OM.PC] Routine 05/29/21 13:00 EKG 12 Lead [EK] Routine 05/29/21 13:54 VL Duplex Lwr Ext Veins Comp [US] Stat - Assessment/Plan Last 24 Hours: My Active Orders 05/29/21 12:07 Sodium Chloride 0.9% [Saline Flush] 10 ml FLUSH ASDIRECTED PRN Saline Lock Insert [OM.PC] Routine 05/29/21 13:00 EKG 12 Lead [EK] Routine 05/29/21 13:54 VL Duplex Lwr Ext Veins Comp [US] Stat
[2021-05-29] MEDS ORDERED: Lactated Ringers 1,000 ML IV ONE (12:53)
--- NOTE | 2021-05-29 13:10 | CR ---
CHEST: 2 view CLINICAL HISTORY:Mid back pain, LOVE COMPARISON:04/08/2020 FINDINGS: Heart is enlarged. Pulmonary vascularity is normal. There are atherosclerotic changes in the aorta. There is some streaky scarring at the right lung base similar to prior study. There is an old compression deformity of T11 Impression: Cardiac megaly No acute cardiopulmonary process
--- NOTE | 2021-05-29 15:07 | US ---
VL Duplex Lwr Ext Veins Comp bilateral HISTORY: High d-dimer FINDINGS: The deep veins of both lower extremities demonstrate normal augmentation and compressibility. No evidence for deep venous thrombosis. IMPRESSION: Normal right lateral lower extremity venous Doppler study.
--- NOTE | 2021-05-29 16:09 | PCM.HP.2 ---
H&P History of Present Illness - General Date of Service: 05/29/21 Admit Problem/Dx: Admission Diagnosis/Problem Admission Diagnosis/Problem Back pain Source of Information: Patient, Family, Provider History Limitations: Reports: No Limitations - History of Present Illness Initial Comments - Free Text/Narative: CC: It hurts like hell HPI: Betty presents to the emergency room today with back pain. She describes moderately severe achy and sharp pain in the middle of her back slightly more on the right than midline. Pain has been present for several days and started a fter she had a fall at home. She was diagnosed with rib fractures and given 3 days worth of pain medications but the pain has not gotten any better. Pain does not radiate. It is better when she is resting and worse with movement. She did use tramadol for 3 days with no significant improvement. She feels short of breath because she cannot take a deep breath. No abdominal pain or nausea. No change in bowel or bladder habits. She has had several falls over the past week. No fevers. Her does not think she has been drinking as much as usual. Work-up in the emergency room revealed evidence for a slight worsening of her baseline renal function and initially she was hypotensive. Blood pressure has responded to IV fluids. She continues to have a fair amount of back pain. She will be admitted for hydration and further work-up and management of her thoracic back pain. Back Pain Score (Numeric/FACES): 10 - Related Data Allergies/Adverse Reactions: Allergies Allergy/AdvReac Type Severity Reaction Status Date / Time amlodipine [From Norvasc] AdvReac Muscle Verified 05/29/21 11:57 Aches indomethacin [From Indocin] AdvReac Nausea Verified 05/29/21 11:57 indomethacin sodium AdvReac Nausea Verified 05/29/21 11:57 [From Indocin] levofloxacin [From Levaquin] AdvReac Leg Cramps Verified 05/29/21 11:57 naproxen [From Naprosyn] AdvReac Nausea Verified 05/29/21 11:57 paroxetine [From Paxil] AdvReac Muscle Verified 05/29/21 11:57 Aches trazodone AdvReac Nausea Verified 05/29/21 11:57 Home Medications: Home Meds Amitriptyline [Elavil] 150 mg PO BEDTIME 09/15/13 [History] Multivitamin [Multi-Vitamin Daily] 1 each PO DAILY 09/15/13 [History] predniSONE [Prednisone] 10 mg PO DAILY 09/15/13 [History] carvediloL [Carvedilol] 6.25 mg PO BID 03/04/18 [History] Acetaminophen 2,000 mg PO BID 10/27/19 [History] Diclofenac Sodium [Voltaren 1% Gel] 4 gram TOP QID PRN 10/27/19 [History] Pantoprazole Sodium [Protonix] 40 mg PO DAILY 10/27/19 [History] Tryptophan [l-Tryptophan] 2,000 mg PO DAILY PRN 10/27/19 [History] Ubidecarenone [Coq-10] 1 tab PO DAILY 10/27/19 [History] busPIRone [Buspar] 5 mg PO TID 10/27/19 [History] hydrALAZINE [Apresoline] 25 mg PO QID 10/27/19 [History] Ascorbic Acid [Vitamin C] 1,000 mg PO DAILY 10/01/20 [History] Vista-3/DHA/Epa/Fish Oil [Vista 3 500 Softgel] 1 cap PO DAILY 10/01/20 [History] cilostazoL [Pletal] 100 mg PO BID 10/01/20 [History] tiZANidine [Zanaflex] 4 mg PO BID 10/01/20 [History] Past Medical History HEENT History: Reports: Cataract, Impaired Vision Cardiovascular History: Reports: High Cholesterol, Hypertension Respiratory History: Reports: Asthma Gastrointestinal History: Reports: GERD Genitourinary History: Reports: Renal Disease 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: Musculoskeletal History: Reports: Osteoporosis, RA, Other (See Below) Other Musculoskeletal History: Polymyalgia rheumatica Psychiatric History: Reports: Anxiety, Other (See Below) Other Psychiatric History: forgettful Endocrine/Metabolic History: Reports: Hyperparathyroidism Hematologic History: Reports: Other (See Below) Other Hematologic History: elevated WBC, refered hematology Dermatologic History: Reports: Cellulitis - Infectious Disease History Infectious Disease History: Reports: Chicken Pox - Past Surgical History HEENT Surgical History: Reports: None Cardiovascular Surgical History: Reports: None Respiratory Surgical History: Reports: None GI Surgical History: Reports: Appendectomy, Colon Female Surgical History: Reports: Section Dermatological Surgical History: Reports: Other (See Below) Social & Family History - Family History Family Medical History: No Pertinent Family History - Tobacco Use Tobacco Use Status *Q: Never Tobacco User - Caffeine Use Caffeine Use: Reports: Coffee - Alcohol Use Alcohol Use History: No Alcohol Use in Last Twelve Months: No - Recreational Drug Use Recreational Drug Use: No H&P Review of Systems - Review of Systems: Review Of Systems: See Below Free Text/Narrative: A complete 12 point review of systems was obtained. Pertinent positives and negatives are noted in the history of present illness. All other systems were reviewed and were negative except as noted. Exam - Exam Exam: See Below - Vital Signs Vital Signs: Last Vital Signs Temp 35.6 C L 05/29/21 11:56 Pulse 74 05/29/21 14:28 Resp 21 H 05/29/21 14:28 BP 120/67 05/29/21 14:28 Pulse Ox 98 05/29/21 14:28 Weight: 48.308 kg - Exam Quality Assessment: No: Supplemental Oxygen General: Alert, Oriented, Cooperative, Mild Distress HEENT: Conjunctiva Clear. No: Mucosa Moist & [place] (dry), Scleral Icterus Neck: Supple, Trachea Midline. No: Lymphadenopathy Lungs: Clear to Auscultation, Normal Respiratory Effort Cardiovascular: Regular Rate, Regular Rhythm. No: Systolic Murmur GI/Abdominal Exam: Normal Bowel Sounds, Soft, Non-Tender, No Distention Back Exam: Normal Inspection, Other (kyphosis ). No: Full Range of Motion, Paraspinal Tenderness, Vertebral Tenderness Extremities: No Pedal Edema. No: Increased Warmth Peripheral Pulses: 2+: Dorsalis Pedis (L), Dorsalis Pedis (R) Skin: Warm, Dry, Ecchymosis (few right forearm and one right anterior pruitt ) Neuro Extensive - Mental Status: Alert, Oriented x3, Nl Response to Commands Neuro Extensive - Motor, Sensory, Reflexes: No: Dysarthria, Abnormal Motor, Tremor Psychiatric: Alert, Normal Affect - Patient Data Lab Results Last 24 hrs: Laboratory Results - last 24 hr 05/29/21 05/29/21 05/29/21 Range/Units 12:22 12:22 12:34 WBC 11.9 H (4.5-11.0) K/uL RBC 3.70 (3.30-5.50) M/uL Hgb 11.8 L (12.0-15.0) g/dL Hct 37.5 (36.0-48.0) % MCV 101 H (80-98) fL MCH 32 H (27-31) pg MCHC 32 (32-36) % Plt Count 296 (150-400) K/uL D-Dimer, Quantitative 3676.59 H (0.0-500.0) ng/mL Sodium 140 (140-148) mmol/L Potassium 4.6 (3.6-5.2) mmol/L Chloride 108 (100-108) mmol/L Carbon Dioxide 20 L (21-32) mmol/L Anion Gap 16.6 H (5.0-14.0) mmol/L BUN 60 H D (7-18) mg/dL Creatinine 2.7 H D (0.6-1.0) mg/dL Est Cr Clr Drug Dosing 14.21 mL/min Estimated GFR (MDRD) 17 L (>60) Glucose 174 H (74-106) mg/dL Calcium 9.2 (8.5-10.1) mg/dL Troponin I 0.077 H* (0.000-0.056) ng/mL Urine Color (YELLOW) Urine Appearance (CLEAR) Urine pH (5.0-8.0) Ur Specific [place] (1.008-1.030) Urine Protein (NEGATIVE) mg/dL Urine Glucose (UA) (NEGATIVE) mg/dL Urine Ketones (NEGATIVE) mg/dL Urine Occult Blood (NEGATIVE) Urine Nitrite (NEGATIVE) Urine Bilirubin (NEGATIVE) Urine Urobilinogen (0.2-1.0) EU/dL Ur Leukocyte Esterase (NEGATIVE) Urine RBC (0-5) Urine WBC (0-5) Ur Epithelial Cells Amorphous Sediment Urine Bacteria Urine Mucus SARS-CoV-2 RNA (SABRINA) (NEGATIVE) 05/29/21 05/29/21 Range/Units 12:54 13:02 WBC (4.5-11.0) K/uL RBC (3.30-5.50) M/uL Hgb (12.0-15.0) g/dL Hct (36.0-48.0) % MCV (80-98) fL MCH (27-31) pg MCHC (32-36) % Plt Count (150-400) K/uL D-Dimer, Quantitative (0.0-500.0) ng/mL Sodium (140-148) mmol/L Potassium (3.6-5.2) mmol/L Chloride (100-108) mmol/L Carbon Dioxide (21-32) mmol/L Anion Gap (5.0-14.0) mmol/L BUN (7-18) mg/dL Creatinine (0.6-1.0) mg/dL Est Cr Clr Drug Dosing mL/min Estimated GFR (MDRD) (>60) Glucose (74-106) mg/dL Calcium (8.5-10.1) mg/dL Troponin I (0.000-0.056) ng/mL Urine Color Yellow (YELLOW) Urine Appearance Slightly cloudy A (CLEAR) Urine pH 5.0 (5.0-8.0) Ur Specific [place] 1.015 (1.008-1.030) Urine Protein Trace H (NEGATIVE) mg/dL Urine Glucose (UA) Negative (NEGATIVE) mg/dL Urine Ketones Negative (NEGATIVE) mg/dL Urine Occult Blood Negative (NEGATIVE) Urine Nitrite Negative (NEGATIVE) Urine Bilirubin Negative (NEGATIVE) Urine Urobilinogen 0.2 (0.2-1.0) EU/dL Ur Leukocyte Esterase Small H (NEGATIVE) Urine RBC 0-5 (0-5) Urine WBC 0-5 (0-5) Ur Epithelial Cells Few Amorphous Sediment Not seen Urine Bacteria Few Urine Mucus Not seen SARS-CoV-2 RNA (SABRINA) Negative (NEGATIVE) Result Diagrams: 05/29/21 12:22 05/29/21 12:22 Imaging Impressions Last 24 hrs: CXR-image personally reviewed-lungs clear with no mass, infiltrate or effusion. Lower ext venous US-no evidence for DVT #1 Interpretation EKG Date: 05/29/21 Rhythm: NSR Rate (Beats/Min): 67 [place]: Normal P-Wave: Present QRS: Normal ST-T: Normal QT: Normal DE/PQ Interval: normal Comparison: No Change EKG Interpretation Comments: Q in II and aVF Sepsis Event Note - Evaluation Sepsis Screening Result: No Definite Risk - Focused Exam Vital Signs: Vital Signs Temp Pulse Resp BP Pulse Ox 05/29/21 14:28 74 21 H 120/67 98 05/29/21 13:55 68 23 H 105/63 96 05/29/21 13:14 71 25 H 97/56 L 99 05/29/21 12:52 70 30 H 111/56 L 97 05/29/21 12:15 68 34 H 89/48 L 99 05/29/21 11:56 35.6 C L 69 38 H 82/50 L 97 05/29/21 11:44 35.6 C L 69 38 H 82/50 L 97 *Q Meaningful Use (ADM) - VTE Risk Assess *Q Each Risk Factor Represents 1 Point: None Total Score 1 Point Risk Factors: 0 Each Risk Factor Represents 2 Points: Age 60 - 74 Years Total Score 2 Point Risk Factors: 2 Each Risk Factor Represents 3 Points: None Total Score 3 Point Risk Factors: 0 Each Risk Factor Represents 5 Points: None Total Score 5 Point Risk Factors: 0 Venous Thromboembolism Risk Factor Score *Q: 2 - Problem List (1) Acute thoracic back pain SNOMED Code(s): 435494374 ICD Code: M54.6 - PAIN IN THORACIC SPINE Status: Acute Current Visit: Yes Qualifiers: Back pain laterality: right Qualified Code(s): M54.6 - Pain in thoracic spine (2) CKD (chronic kidney disease) stage 4, GFR 15-29 ml/min SNOMED Code(s): 414475727 ICD Code: N18.4 - CHRONIC KIDNEY DISEASE, STAGE 4 (SEVERE) Status: Chronic Current Visit: No (3) Rheumatoid arthritis SNOMED Code(s): 76285681 ICD Code: M06.9 - RHEUMATOID ARTHRITIS, UNSPECIFIED Status: Chronic Cur rent Visit: No Qualifiers: Rheumatoid factor presence: unspecified presence Laterality: unspecified laterality Problem List Initiated/Reviewed/Updated: Yes Orders Last 24hrs: Active Orders 24 hr Category Date Time Status Patient Status Manage Transfer [TRANSFER] Routine ADT 05/29/21 15:57 Ordered Sodium Chloride 0.9% [Saline Flush] Med 05/29/21 12:07 Active 10 ml FLUSH ASDIRECTED PRN Saline Lock Insert [OM.PC] Routine Oth 05/29/21 12:07 Ordered Resuscitation Status Routine Resus Stat 05/29/21 15:59 Ordered EKG 12 Lead [EK] Routine Ther 05/29/21 13:00 Ordered Medication Orders Sodium Chloride (Sodium Chloride 0.9% 10 Ml Syringe) 10 ml FLUSH ASDIRECTED PRN PRN Reason: Keep Vein Open Last Admin: 05/29/21 12:24 Dose: 10 ml Documented by: PREILOR Assessment/Plan Comment:: ASSESSMENT AND PLAN - Acute thoracic back pain-started after a fall a few days ago and has not gotten better. Exam fairly benign with no vertebral or paraspinal tenderness though she does have a fair amount of paravertebral muscle spasm. She is at high risk for compression fracture with longstanding prednisone use. -Thoracic x-ray -Symptomatic management of pain with scheduled acetaminophen and as needed tramadol -As needed Aspercreme -Physical therapy Stage IV chronic kidney disease-GFR slightly worse than usual and I suspect this is related to intravascular volume depletion with poor intake. She was hypotensive but this is responding to fluids. -Continue gentle hydration throughout the day -Hold hydralazine -Repeat labs in the morning Rheumatoid arthritis-chronic and stable. She is on long-term prednisone use. -Continue home medications Maintenance issues - -DVT prophylaxis-mechanical -GI prophylaxis-not indicated -Nutrition-regular -[place] catheter-not indicated CODE STATUS -full code Admission justification -this patient will be admitted for observation to provide gentle hydration, recheck labs and manage back pain Disposition -I anticipate discharge home after the hospital stay Primary care physician -Dr. Roverto Jones M.D. - Mortality Measure Prognosis:: Good
[2021-05-29] MEDS ORDERED: Ondansetron 4 MG/2 ML SDV IV PRN (16:23)
[2021-05-29] MEDS ORDERED: Sodium Chloride 0.9% 1,000 ML IV SCH (16:23)
[2021-05-29] MEDS ORDERED: Magnesium Hydroxide 400 MG/5 ML Susp 30 ML Cup PO PRN (16:23)
[2021-05-29] MEDS ORDERED: Melatonin 3 MG Tab PO PRN (16:23)
[2021-05-29] MEDS ORDERED: Ondansetron 4 MG Tab.DIS PO PRN (16:23)
[2021-05-29] MEDS ORDERED: Trolamine Salicylate/Aloe Vera 10% Crm 85 GM Tube TOP PRN (16:23)
[2021-05-29] MEDS ORDERED: Diclofenac Sodium 1% Gel 100 GM Tube TOP PRN (16:32)
[2021-05-29] MEDS: Acetaminophen 500 MG Tab PO SCH ×2 (17:12→21:44)
[2021-05-29] MEDS: CILOSTAZOL 100 MG PO SCH (17:13)
[2021-05-29] MEDS ORDERED: Carvedilol 3.125 MG Tab PO SCH (21:00)
[2021-05-29] MEDS: BUSPIRONE 5 MG PO SCH (21:45)
[2021-05-29] MEDS: Amitriptyline 25 MG Tab PO SCH (21:47)
[2021-05-30] MEDS: traMADol 50 MG Tab PO PRN ×2 (02:28→21:04)
[2021-05-30] MEDS: Pantoprazole 40 MG Tab.CR PO SCH (07:45)
[2021-05-30] MEDS: predniSONE 5 MG Tab **PTOM PO SCH (07:47)
[2021-05-30] MEDS: CILOSTAZOL 100 MG PO SCH ×2 (07:47→17:05)
[2021-05-30] MEDS ORDERED: CARVEDILOL 6.25 MG PO SCH (08:00)
[2021-05-30] MEDS ORDERED: predniSONE 10 MG Tab PO SCH (08:00)
--- NOTE | 2021-05-30 09:21 | CR ---
Thoracic Spine 2V CLINICAL HISTORY: Mid back pain FINDINGS: There is a moderate compression deformity of T8 and a severe compression deformity of T11. T8 fracture is seen on the April 2020 [address] chest. The T11 fracture was not present at that time There is no significant osteophytosis. The pedicles are unremarkable. IMPRESSION: Old moderate compression deformity T8 Severe T11 compression deformity of uncertain chronology. This could be acute or subacute
[2021-05-30] MEDS: Multivitamins with Iron/Calcium/Folic Acid/Minerals Tab PO SCH (09:27)
[2021-05-30] MEDS: BUSPIRONE 5 MG PO SCH ×3 (09:27→20:12)
[2021-05-30] MEDS: Ascorbic Acid 500 MG Tab PO SCH (09:27)
[2021-05-30] MEDS: Acetaminophen 500 MG Tab PO SCH ×3 (09:27→20:14)
--- NOTE | 2021-05-30 14:36 | PCM.PN ---
- General Info Date of Service: 05/30/21 Subjective Update: No acute events overnight. She does report that she feels a little better today. Back pain is more tolerable but does persist. Thoracic spine x-ray showed old compression fracture at T8 and probable acute fracture at T11. Pain is minimal at rest but more intense with activity. She did work with physical therapy this morning. Creatinine and GFR are nearly back to baseline. Blood pressure has improved and is in the 130-140 range. Functional Status: Reports: Pain Controlled, Tolerating Diet - Review of Systems Musculoskeletal: Reports: Back Pain - Patient Data Vitals - Most Recent: Last Vital Signs Temp 37.2 C 05/30/21 10:00 Pulse 97 05/30/21 10:00 Resp 18 05/30/21 10:00 BP 158/78 H 05/30/21 10:00 Pulse Ox 93 L 05/30/21 10:00 Weight - Most Recent: 45.359 kg I&O - Last 24 Hours: Intake & Output 05/29/21 05/30/21 05/30/21 22:59 06:59 14:59 Intake Total 300 260 Output Total 100 Balance 200 260 Lab Results Last 24 Hours: Laboratory Results - last 24 hr 05/30/21 05/30/21 Range/Units 06:07 06:07 WBC 11.2 H (4.5-11.0) K/uL RBC 3.72 (3.30-5.50) M/uL Hgb 11.6 L (12.0-15.0) g/dL Hct 36.9 (36.0-48.0) % MCV 99 H (80-98) fL MCH 31 (27-31) pg MCHC 31 L (32-36) % Plt Count 351 (150-400) K/uL Neut % (Auto) 73.6 H (36-66) % Lymph % (Auto) 12.4 L (24-44) % [place] % (Auto) 11.7 H (2-6) % Eos % (Auto) 1.8 L (2-4) % Baso % (Auto) 0.5 (0-1) % Sodium 142 (140-148) mmol/L Potassium 4.5 (3.6-5.2) mmol/L Chloride 111 H (100-108) mmol/L Carbon Dioxide 18 L (21-32) mmol/L Anion Gap 17.5 H (5.0-14.0) mmol/L BUN 49 H (7-18) mg/dL Creatinine 2.2 H (0.6-1.0) mg/dL Est Cr Clr Drug Dosing 16.57 mL/min Estimated GFR (MDRD) 22 L (>60) Glucose 97 (74-106) mg/dL Calcium 8.6 (8.5-10.1) mg/dL Med Orders - Current: Current Medications Acetaminophen (Acetaminophen 500 Mg Tab) 1,000 mg PO TID [facility] Last Admin: 05/30/21 13:26 Dose: 1,000 mg Documented by: Amitriptyline HCl (Amitriptyline 25 Mg Tab) 150 mg PO BEDTIME [facility] Last Admin: 05/29/21 21:47 Dose: 150 mg Documented by: Ascorbic Acid (Ascorbic Acid 500 Mg Tab) 1,000 mg PO DAILY [facility] Last Admin: 05/30/21 09:27 Dose: 1,000 mg Documented by: Buspirone HCl (Buspirone 5 Mg Tab Ptom) 5 mg PO TID [facility] Last Admin: 05/30/21 13:27 Dose: 5 mg Documented by: Cilostazol (Cilostazol 100 Mg Tab Ptom) 100 mg PO BIDAC [facility] Last Admin: 05/30/21 07:47 Dose: 100 mg Documented by: Diclofenac Sodium (Diclofenac Sodium 1% Gel 100 Gm Tube) 4 gm TOP QID PRN PRN Reason: Pain Last Admin: 05/30/21 00:31 Dose: 4 gm Documented by: Magnesium Hydroxide (Magnesium Hydroxide 400 Mg/5 Ml Susp 30 Ml Cup) 30 ml PO Q12H PRN PRN Reason: Constipation Melatonin (Melatonin 3 Mg Tab) 9 mg PO BEDTIME PRN PRN Reason: Sleep Last Admin: 05/29/21 21:44 Dose: 9 mg Documented by: Multivitamins/Minerals (Multivitamins With Iron/Calcium/Folic Acid/Minerals Tab) 1 tab PO DAILY [facility] Last Admin: 05/30/21 09:27 Dose: 1 tab Documented by: Carvedilol 6.25mg (Ptom) 0 each PO BIDMEALS [facility] Ondansetron HCl (Ondansetron 4 Mg/2 Ml Sdv) 4 mg IV Q6H PRN PRN Reason: Nausea/Vomiting Ondansetron HCl (Ondansetron 4 Mg Tab.Dis) 4 mg PO Q6H PRN PRN Reason: Nausea able to take PO Pantoprazole Sodium (Pantoprazole 40 Mg Tab.Cr) 40 mg PO ACBREAKFAST [facility] Last Admin: 05/30/21 07:45 Dose: 40 mg Documented by: Prednisone (Prednisone 5 Mg Tab Ptom) 7.5 mg PO DAILY@0800 [facility] Last Admin: 05/30/21 07:47 Dose: 7.5 mg Documented by: Senna/Docusate Sodium (Docusate Sodium/Sennosides 50-8.6 Mg Tab) 1 tab PO BID PRN PRN Reason: Constipation Sodium Chloride (Sodium Chloride 0.9% 10 Ml Syringe) 10 ml FLUSH ASDIRECTED PRN PRN Reason: Keep Vein Open Last Admin: 05/29/21 12:24 Dose: 10 ml Documented by: Tramadol HCl (Tramadol 50 Mg Tab) 50 mg PO Q8H PRN PRN Reason: Pain Last Admin: 05/30/21 02:28 Dose: 50 mg Documented by: Trolamine Salicylate (Trolamine Salicylate/Aloe Vera 10% Crm 85 Gm Tube) 0 gm TOP Q2H PRN PRN Reason: back pain Discontinued Medications Carvedilol (Carvedilol 3.125 Mg Tab) 6.25 mg PO BID [facility] Lactated Ringer's (Ringers, Lactated) 1,000 mls @ 1,000 mls/hr IV BOLUS ONE Stop: 05/29/21 13:52 Last Admin: 05/29/21 13:05 Dose: 1,000 mls/hr Documented by: Sodium Chloride (Normal Saline) 1,000 mls @ 125 mls/hr IV ASDIRECTED [facility] Stop: 05/30/21 00:24 Last Admin: 05/29/21 17:13 Dose: 125 mls/hr Documented by: Influenza Virus Vaccine (Flu Vacc [id number](65yr Up)/Pf 240 Mcg/0.7 Ml Syringe) 240 mcg IM .ONCE ONE Stop: 05/30/21 10:01 Last Admin: 05/30/21 09:26 Dose: 240 mcg Documented by: Carvedilol 6.25mg (Tab Own Med ) 1 each PO BIDMEALS [facility] Last Admin: 05/30/21 07:47 Dose: 1 each Documented by: Prednisone (Prednisone 10 Mg Tab) 10 mg PO DAILY@0800 [facility] - Exam Quality Assessment: No: Supplemental Oxygen General: Alert, Oriented, Cooperative, No Acute Distress Lungs: Normal Respiratory Effort Cardiovascular: Regular Rate, Regular Rhythm GI/Abdominal Exam: Soft, No Distention Extremities: No Pedal Edema Psy/Mental Status: Alert, Normal Affect - Patient Data Lab Results Last 24 hrs: Laboratory Results - last 24 hr 05/30/21 05/30/21 Range/Units 06:07 06:07 WBC 11.2 H (4.5-11.0) K/uL RBC 3.72 (3.30-5.50) M/uL Hgb 11.6 L (12.0-15.0) g/dL Hct 36.9 (36.0-48.0) % MCV 99 H (80-98) fL MCH 31 (27-31) pg MCHC 31 L (32-36) % Plt Count 351 (150-400) K/uL Neut % (Auto) 73.6 H (36-66) % Lymph % (Auto) 12.4 L (24-44) % [place] % (Auto) 11.7 H (2-6) % Eos % (Auto) 1.8 L (2-4) % Baso % (Auto) 0.5 (0-1) % Sodium 142 (140-148) mmol/L Potassium 4.5 (3.6-5.2) mmol/L Chloride 111 H (100-108) mmol/L Carbon Dioxide 18 L (21-32) mmol/L Anion Gap 17.5 H (5.0-14.0) mmol/L BUN 49 H (7-18) mg/dL Creatinine 2.2 H (0.6-1.0) mg/dL Est Cr Clr Drug Dosing 16.57 mL/min Estimated GFR (MDRD) 22 L (>60) Glucose 97 (74-106) mg/dL Calcium 8.6 (8.5-10.1) mg/dL Result Diagrams: 05/30/21 06:07 05/30/21 06:07 Sepsis Event Note - Evaluation Sepsis Screening Result: No Definite Risk - Focused Exam Vital Signs: Vital Signs Temp Pulse Resp BP Pulse Ox 05/30/21 10:00 37.2 C 97 18 158/78 H 93 L 05/30/21 06:47 36.9 C 91 18 154/76 H 98 - Problem List & Annotations (1) Thoracic compression fracture SNOMED Code(s): 224708964 Code(s): S22.000A - WEDGE COMPRESSION FRACTURE OF UNSP THORACIC VERTEBRA, INIT Status: Acute Current Visit: Yes Qualifiers: Encounter type: initial encounter Thoracic vertebra fracture level: T11 Qualified Code(s): S22.080A - Wedge compression fracture of T11-T12 vertebra, initial encounter for closed fracture (2) Acute thoracic back pain SNOMED Code(s): 945363896 Code(s): M54.6 - PAIN IN THORACIC SPINE Status: Acute Current Visit: Yes Qualifiers: Back pain laterality: right Qualified Code(s): M54.6 - Pain in thoracic spine (3) CKD (chronic kidney disease) stage 4, GFR 15-29 ml/min SNOMED Code(s): 711244100 Code(s): N18.4 - CHRONIC KIDNEY DISEASE, STAGE 4 (SEVERE) Status: Chronic Current Visit: No (4) Rheumatoid arthritis SNOMED Code(s): 18735658 Code(s): M06.9 - RHEUMATOID ARTHRITIS, UNSPECIFIED Status: Chronic C urrent Visit: No Qualifiers: Rheumatoid factor presence: unspecified presence Laterality: unspecified laterality - Problem List Review Problem List Initiated/Reviewed/Updated: Yes - My Orders Last 24 Hours: My Active Orders 05/29/21 15:59 Resuscitation Status Routine 05/29/21 16:23 Acetaminophen [Tylenol Extra Strength] 1,000 mg PO TID Docusate Sodium/Sennosides [Senna Plus] 1 tab PO BID PRN Magnesium Hydroxide [Milk of Magnesia] 30 ml PO Q12H PRN Melatonin 9 mg PO BEDTIME PRN Ondansetron [Zofran ODT] 4 mg PO Q6H PRN Ondansetron [Zofran] 4 mg IV Q6H PRN Trolamine Salicylate/Aloe Vera [Aspercreme 10%] 0 gm TOP Q2H PRN traMADol [Ultram] 50 mg PO Q8H PRN 05/29/21 16:23 Patient Status [ADT] Routine Antiembolic Devices [RC] .Routine Intake and Output [RC] QSHIFT Notify Provider Vital Signs [RC] ASDIRECTED Oxygen Therapy [RC] PRN Up With Assistance [RC] ASDIRECTED Vital Signs [RC] Q4H PT Evaluation and Treatment [CONS] Routine Sequential Compression Device [OM.PC] Routine 05/29/21 16:32 Diclofenac Sodium [Voltaren 1% Gel] 4 gm TOP QID PRN 05/29/21 16:54 Vaccine to be Administered/Admin Charge [RC] ASDIRECTED 05/29/21 Dinner 2 Gram Sodium Diet [DIET] cilostazoL [Pletal] 100 mg PO BIDAC 05/29/21 21:00 Amitriptyline [Elavil] 150 mg PO BEDTIME busPIRone [Buspar] 5 mg PO TID 05/30/21 07:30 Pantoprazole [ProTONIX] 40 mg PO ACBREAKFAST 05/30/21 09:00 Ascorbic Acid [Vitamin C] 1,000 mg PO DAILY Multivitamins w-Iron/Ca/FA/Min [Thera M Plus] 1 tab PO DAILY 05/30/21 14:45 Calcitonin ([place]) [Miacalcin Nasal [place]] 1 ml JOHN DAILY 05/30/21 17:00 Non-Formulary Medication [NF Drug] 0 each PO BIDMEALS 05/31/21 05:00 BASIC METABOLIC PANEL,BMP [CHEM] Timed - Plan Plan:: ASSESSMENT AND PLAN - Acute thoracic back pain secondary to T11 compression [id number] use of steroids for rheumatoid arthritis. Pain tolerable for the most part but still having some difficulty with activity. -Start calcitonin -Symptomatic management of pain with scheduled acetaminophen and as needed tramadol -As needed Aspercreme -Physical therapy -Outpatient follow-up to discuss long-term osteoporosis/fracture management Stage IV chronic kidney disease-GFR improved with fluids overnight. -Saline lock IV -Continue to hold hydralazine -Repeat labs in the morning Rheumatoid arthritis-chronic and stable. She is on long-term prednisone use. -Continue home medications Maintenance issues - -DVT prophylaxis-mechanical -GI prophylaxis-not indicated -Nutrition-regular Admission justification -this patient will be admitted for observation to provide gentle hydration, recheck labs and manage back pain Disposition -I anticipate discharge home with home care versus outpatient physical therapy after the hospital stay Mic Jones M.D.
[2021-05-30] MEDS: Calcitonin (Salmon) Nasal Spray 3.7 ML Bottle NAS SCH (15:10)
[2021-05-30] MEDS: Amitriptyline 25 MG Tab PO SCH (20:12)
[2021-05-31] MEDS: CILOSTAZOL 100 MG PO SCH (07:35)
[2021-05-31] MEDS: Pantoprazole 40 MG Tab.CR PO SCH (07:35)
[2021-05-31] MEDS: predniSONE 5 MG Tab **PTOM PO SCH (07:35)
[2021-05-31] MEDS: BUSPIRONE 5 MG PO SCH (09:20)
[2021-05-31] MEDS: Acetaminophen 500 MG Tab PO SCH (09:20)
[2021-05-31] MEDS: Ascorbic Acid 500 MG Tab PO SCH (09:20)
[2021-05-31] MEDS: Calcitonin (Salmon) Nasal Spray 3.7 ML Bottle NAS SCH (09:20)
[2021-05-31] MEDS: Multivitamins with Iron/Calcium/Folic Acid/Minerals Tab PO SCH (09:20)
--- NOTE | 2021-05-31 12:11 | PCM.DCSUM1 ---
Discharge Summary - Hospital Course Brief History: 70-year-old female with history of rheumatoid arthritis and stage IV chronic kidney disease who presented with weakness, falls and back pain. She was admitted for management of pain control with suspected compression fracture and hydration with a mild decrease in her chronic kidney disease from baseline. Diagnosis: Stroke: No - Discharge Data Discharge Date: 05/31/21 Discharge Disposition: Home, Self-Care 01 Condition: Fair - Referral to Home Health Primary Care Physician: Roverto Dewey MD - Discharge Diagnosis/Problem(s) (1) Thoracic compression fracture SNOMED Code(s): 943005011 ICD Code: S22.000A - WEDGE COMPRESSION FRACTURE OF UNSP THORACIC VERTEBRA, INIT Status: Acute Qualifiers: Encounter type: initial encounter Thoracic vertebra fracture level: T11 Qualified Code(s): S22.080A - Wedge compression fracture of T11-T12 vertebra, initial encounter for closed fracture (2) Acute thoracic back pain SNOMED Code(s): 331787886 ICD Code: M54.6 - PAIN IN THORACIC SPINE Status: Acute Qualifiers: Back pain laterality: right Qualified Code(s): M54.6 - Pain in thoracic spine (3) CKD (chronic kidney disease) stage 4, GFR 15-29 ml/min SNOMED Code(s): 311368352 ICD Code: N18.4 - CHRONIC KIDNEY DISEASE, STAGE 4 (SEVERE) Status: Chronic (4) Rheumatoid arthritis SNOMED Code(s): 63663585 ICD Code: M06.9 - RHEUMATOID ARTHRITIS, UNSPECIFIED Status: Chronic Qualifiers: Rheumatoid factor presence: unspecified presence Laterality: unspecified laterality - Patient Summary/Data Consults: Consultations 05/29/21 16:23 PT Evaluation and Treatment [CONS] Routine Please Evaluate and Treat. PT Reason for Consult: Strengthening This query below is only for informational purposes and is not editable. Hospital Course: Betty presented to the emergency room with worsening back pain. She had a fall earlier in the week and had been diagnosed with rib fractures. She had tramadol for a few days which helped her pain some but she had a significant increase in her pain after the tramadol use was complete. Work-up in the emergency room revealed concern for worsening of her baseline renal function with a GFR of only 17 (baseline in the mid 20s). She was weak and a little bit confused. She was also hypotensive on arrival. She was admitted to the hospital for hydration and further work-up and management of her back pain. Her blood pressure did respond nicely to some IV fluids and normalized. By the morning after admission her kidney function had improved and was nearly back to baseline. Symptomatically she was feeling better but still a little bit confused. We did get a thoracic spine x-ray which showed an old compression fracture at T8 and a probable acute or subacute fracture at T11. I suspect this was the cause for her pain. She has significant risk factors for osteoporosis and has been on long-term steroids. Fortunately we have been able to gain good control of her pain with scheduled acetaminophen and as needed tramadol. She has tolerated these medications well. We did also start her on calcitonin to help speed up the healing of the fracture. She does have a significant loss of height at T11 but I think that vertebroplasty would be potentially dangerous given her osteoporosis and potential that fixing T11 would cause troubles with T10 and or T12. Her mental status has returned to normal. She has been up and cruising in the hallways without any significant difficulty. Her pain is very w ell controlled. Kidney function is back to baseline at the time of discharge. She has physical therapy scheduled through the hospital in 2 days. She feels well enough to go home and her is comfortable with her going home at this time as well. She would benefit from discussion about osteoporosis treatment as an outpatient. - Patient Instructions Diet: Usual Diet as Tolerated Activity: As Tolerated Driving: Do Not Drive (if taking pain pills) Showering/Bathing: May Shower Notify Provider of: Increased Pain Other/Special Instructions: 1. You were in the hospital for management of back pain and frequent falls. Your back pain is likely due to a compression fracture involving the 11th thoracic vertebrae. Your pain seems to be well controlled using scheduled acetaminophen and as needed tramadol. We did also start a c alcitonin nasal spray to help speed up the healing of the compression fracture. You should use 1 spray each day. Please alternate nostrils daily (left then right then left etc). Use this medication until the bottle is empty. You should discuss additional osteoporosis treatment medications with Dr. Dewey at your follow-up appointment. You may increase your activity as tolerated. 2. Continue your usual home medications as previously prescribed. I would advise caution with the tizanidine (Zanaflex). This is a muscle relaxer that can cause dizziness. If you have concerns about dizziness you should consider using this medication infrequently or potentially discontinuing it altogether. 3. Follow up as scheduled with physical therapy and with Dr Roverto Dewey - Discharge Plan *PRESCRIPTION DRUG MONITORING PROGRAM REVIEWED*: Not Applicable *COPY OF PRESCRIPTION DRUG MONITORING REPORT IN PATIENT YAW: Not Applicable Prescriptions/Med Rec: Calcitonin ([place]) [Miacalcin Nasal Amelia] 1 spray JOHN DAILY #1 bottle traMADol [Ultram] 50 mg PO Q8H PRN #20 tablet PRN Reason: Pain Home Medications: Home Meds Amitriptyline [Elavil] 150 mg PO BEDTIME 09/15/13 [History] Multivitamin [Multi-Vitamin Daily] 1 each PO DAILY 09/15/13 [History] predniSONE [Prednisone] 10 mg PO DAILY 09/15/13 [History] carvediloL [Carvedilol] 6.25 mg PO BID 03/04/18 [History] Acetaminophen 2,000 mg PO BID 10/27/19 [History] Diclofenac Sodium [Voltaren 1% Gel] 4 gram TOP QID PRN 10/27/19 [History] Pantoprazole Sodium [Protonix] 40 mg PO DAILY 10/27/19 [History] Tryptophan [l-Tryptophan] 2,000 mg PO DAILY PRN 10/27/19 [History] Ubidecarenone [Coq-10] 1 tab PO DAILY 10/27/19 [History] busPIRone [Buspar] 5 mg PO TID 10/27/19 [History] hydrALAZINE [Apresoline] 25 mg PO QID 10/27/19 [History] Ascorbic Acid [Vitamin C] 1,000 mg PO DAILY 10/01/20 [History] [place]-3/DHA/Epa/Fish Oil [[place] 3 500 Softgel] 1 cap PO DAILY 10/01/20 [History] cilostazoL [Pletal] 100 mg PO BID 10/01/20 [History] tiZANidine [Zanaflex] 4 mg PO BID 10/01/20 [History] Calcitonin ([place]) [Miacalcin Nasal Amelia] 1 spray JOHN DAILY #1 bottle 05/31/21 [Rx] traMADol [Ultram] 50 mg PO Q8H PRN #20 tablet 05/31/21 [Rx] Oxygen Therapy Mode: Room Air Patient Handouts: Fall Prevention in the Home, Adult, [id number], Dehydration, Adult, [id number] Referrals: Becky Moreno, PT [Physical Therapist] - 06/03/21 2:30 pm (Please arrive 15 minutes early to register for your appointment. [place] at the ER desk) Roverto Dewey MD [Primary Care Provider] - 06/06/21 9:00 am (Please arrive 15 minutes early to register for your appointment.) - Discharge Summary/Plan Comment DC Time >30 min.: No Total # of Minutes for Discharge Time: 25 - Patient Data Vitals - Most Recent: Last Vital Signs Temp 36.5 C 05/31/21 11:00 Pulse 88 05/31/21 11:00 Resp 18 05/31/21 11:00 BP 139/81 05/31/21 11:00 Pulse Ox 95 05/31/21 11:00 Weight - Most Recent: 45.359 kg I&O - Last 24 hours: Intake & Output 05/30/21 05/31/21 05/31/21 22:59 06:59 14:59 Intake Total 260 Balance 260 Lab Results - Last 24 hrs: Laboratory Results - last 24 hr 05/31/21 Range/Units 05:36 Sodium 146 (140-148) mmol/L Potassium 4.7 (3.6-5.2) mmol/L Chloride 113 H (100-108) mmol/L Carbon Dioxide 20 L (21-32) mmol/L Anion Gap 17.7 H (5.0-14.0) mmol/L BUN 41 H (7-18) mg/dL Creatinine 2.1 H (0.6-1.0) mg/dL Est Cr Clr Drug Dosing 17.34 mL/min Estimated GFR (MDRD) 23 L (>60) Glucose 110 H (74-106) mg/dL Calcium 8.9 (8.5-10.1) mg/dL Med Orders - Current: Current Medications Acetaminophen (Acetaminophen 500 Mg Tab) 1,000 mg PO TID [facility] Last Admin: 05/31/21 09:20 Dose: 1,000 mg Documented by: Amitriptyline HCl (Amitriptyline 25 Mg Tab) 150 mg PO BEDTIME [facility] Last Admin: 05/30/21 20:12 Dose: 150 mg Documented by: Ascorbic Acid (Ascorbic Acid 500 Mg Tab) 1,000 mg PO DAILY [facility] Last Admin: 05/31/21 09:20 Dose: 1,000 mg Documented by: Buspirone HCl (Buspirone 5 Mg Tab Ptom) 5 mg PO TID [facility] Last Admin: 05/31/21 09:20 Dose: 5 mg Documented by: Calcitonin [place] (Calcitonin ([place]) Nasal Amelia 3.7 Ml Bottle) 0 ml JOHN DAILY [facility] Last Admin: 05/31/21 09:20 Dose: 1 spr Documented by: Cilostazol (Cilostazol 100 Mg Tab Ptom) 100 mg PO BIDAC [facility] Last Admin: 05/31/21 07:35 Dose: 100 mg Documented by: Diclofenac Sodium (Diclofenac Sodium 1% Gel 100 Gm Tube) 4 gm TOP QID PRN PRN Reason: Pain Last Admin: 05/30/21 00:31 Dose: 4 gm Documented by: Magnesium Hydroxide (Magnesium Hydroxide 400 Mg/5 Ml Susp 30 Ml Cup) 30 ml PO Q12H PRN PRN Reason: Constipation Melatonin (Melatonin 3 Mg Tab) 9 mg PO BEDTIME PRN PRN Reason: Sleep Last Admin: 05/29/21 21:44 Dose: 9 mg Documented by: Multivitamins/Minerals (Multivitamins With Iron/Calcium/Folic Acid/Minerals Tab) 1 tab PO DAILY [facility] Last Admin: 05/31/21 09:20 Dose: 1 tab Documented by: Carvedilol 6.25mg (Ptom) 0 each PO BIDMEALS [facility] Last Admin: 05/31/21 07:35 Dose: 1 each Documented by: Ondansetron HCl (Ondansetron 4 Mg/2 Ml Sdv) 4 mg IV Q6H PRN PRN Reason: Nausea/Vomiting Ondansetron HCl (Ondansetron 4 Mg Tab.Dis) 4 mg PO Q6H PRN PRN Reason: Nausea able to take PO Pantoprazole Sodium (Pantoprazole 40 Mg Tab.Cr) 40 mg PO ACBREAKFAST [facility] Last Admin: 05/31/21 07:35 Dose: 40 mg Documented by: Prednisone (Prednisone 5 Mg Tab Ptom) 7.5 mg PO DAILY@0800 [facility] Last Admin: 05/31/21 07:35 Dose: 7.5 mg Documented by: Senna/Docusate Sodium (Docusate Sodium/Sennosides 50-8.6 Mg Tab) 1 tab PO BID PRN PRN Reason: Constipation Sodium Chloride (Sodium Chloride 0.9% 10 Ml Syringe) 10 ml FLUSH ASDIRECTED PRN PRN Reason: Keep Vein Open Last Admin: 05/29/21 12:24 Dose: 10 ml Documented by: Tramadol HCl (Tramadol 50 Mg Tab) 50 mg PO Q8H PRN PRN Reason: Pain Last Admin: 05/30/21 21:04 Dose: 50 mg Documented by: Trolamine Salicylate (Trolamine Salicylate/Aloe Vera 10% Crm 85 Gm Tube) 0 gm TOP Q2H PRN PRN Reason: back pain Discontinued Medications Carvedilol (Carvedilol 3.125 Mg Tab) 6.25 mg PO BID [facility] Lactated Ringer's (Ringers, Lactated) 1,000 mls @ 1,000 mls/hr IV BOLUS ONE Stop: 05/29/21 13:52 Last Admin: 05/29/21 13:05 Dose: 1,000 mls/hr Documented by: Sodium Chloride (Normal Saline) 1,000 mls @ 125 mls/hr IV ASDIRECTED PHONG Stop: 05/30/21 00:24 Last Admin: 05/29/21 17:13 Dose: 125 mls/hr Documented by: Influenza Virus Vaccine (Flu Vacc [id number](65yr Up)/Pf 240 Mcg/0.7 Ml Syringe) 240 mcg IM .ONCE ONE Stop: 05/30/21 10:01 Last Admin: 05/30/21 09:26 Dose: 240 mcg Documented by: Carvedilol 6.25mg (Tab Own Med ) 1 each PO BIDMEALS [facility] Last Admin: 05/30/21 07:47 Dose: 1 each Documented by: Prednisone (Prednisone 10 Mg Tab) 10 mg PO DAILY@0800 [facility]
== END 2021-05-31 13:25 | disposition home or self-care (01) ==
LOC: JP.ED 11:30 → JP.MS 15:57
PROVIDERS: ADMIT Internal Medicine; ATTEND Internal Medicine
DX: S22.080A Wedge compression fracture of T11-T12 vertebra, initial encounter for closed fracture (principal); S22.39XA Fracture of one rib, unspecified side, initial encounter for closed fracture; E78.00 Pure hypercholesterolemia, unspecified; J45.909 Unspecified asthma, uncomplicated; K21.9 Gastro-esophageal reflux disease without esophagitis; M81.0 Age-related osteoporosis without current pathological fracture; F41.9 Anxiety disorder, unspecified; I12.9 Hypertensive chronic kidney disease with stage 1 through stage 4 chronic kidney disease, or unspecified chronic kidney disease; N18.4 Chronic kidney disease, stage 4 (severe); M06.9 Rheumatoid arthritis, unspecified; Z88.8 Allergy status to other drugs, medicaments and biological substances; Z79.899 Other long term (current) drug therapy; Z20.822 Contact with and (suspected) exposure to COVID-19
CPT/HCPCS: 36415; 71046; 72070; 80048; 81001; 84484; 85025; 85027; 85379; 90662; 93005; 93970; 97112; 97161; 99285; A9270; G0008; G0378; J7030; J7120; J7512; U0002

== ENCOUNTER 2021-06-22 15:54 | Observation (INO) | payer MEDICARE, BC ==
[2021-06-22] MEDS ORDERED: Sodium Chloride 0.9% 1,000 ML IV SCH (19:15)
--- NOTE | 2021-06-22 20:05 | CRLCR ---
For Patients: As a result of the Century Cures Act, medical imaging exams and procedure reports are released immediately into your electronic medical record. You may view this report before your referring provider. If you have questions, please contact your health care provider. Indication: Shortness of breath. Technique: AP portable view of the chest. Comparison: May 29, 2021. Findings: The aorta is tortuous. The right hemidiaphragm is elevated. Right basilar atelectasis identified. No pleural effusion or pneumothorax is identified. Impression: Elevation the right hemidiaphragm. Dictated by Joyce Lei MD @ 06/22/2021 8:04:11 PM (Electronically Signed)
--- NOTE | 2021-06-22 20:14 | EDM.PDOC ---
ED HPI GENERAL MEDICAL PROBLEM - General Chief Complaint: Respiratory Problem Stated Complaint: SOB Time Seen by Provider: 06/22/21 17:40 Source of Information: Reports: Patient, Family History Limitations: Reports: No Limitations - History of Present Illness INITIAL COMMENTS - FREE TEXT/NARRATIVE: pt has increased sob. She is having several loose stools. She has a history of a perforated bowel. She also has a history of a compression fracture at t11 and t8. She has been using tramodol and she feels like she is not tolerating this well She is having abdomanal pain. She is eating poorly Leg Pain Score (Numeric/FACES): 0 - Related Data Allergies Allergy/AdvReac Type Severity Reaction Status Date / Time amlodipine [From Norvasc] AdvReac Muscle Verified 06/22/21 17:37 Aches indomethacin [From Indocin] AdvReac Nausea Verified 06/22/21 17:37 indomethacin sodium AdvReac Nausea Verified 06/22/21 17:37 [From Indocin] levofloxacin [From Levaquin] AdvReac Leg Cramps Verified 06/22/21 17:37 naproxen [From Naprosyn] AdvReac Nausea Verified 06/22/21 17:37 paroxetine [From Paxil] AdvReac Muscle Verified 06/22/21 17:37 Aches trazodone AdvReac Nausea Verified 06/22/21 17:37 Home Meds: Home Meds Amitriptyline [Elavil] 125 mg PO BEDTIME 09/15/13 [History] Multivitamin [Multi-Vitamin Daily] 1 each PO DAILY 09/15/13 [History] predniSONE [Prednisone] 7.5 mg PO DAILY 09/15/13 [History] carvediloL [Carvedilol] 6.25 mg PO BID 03/04/18 [History] Acetaminophen 2,000 mg PO BID 10/27/19 [History] Diclofenac Sodium [Voltaren 1% Gel] 4 gram TOP QID PRN 10/27/19 [History] Pantoprazole Sodium [Protonix] 40 mg PO DAILY 10/27/19 [History] Tryptophan [l-Tryptophan] 2,000 mg PO DAILY PRN 10/27/19 [History] Ubidecarenone [Coq-10] 1 tab PO DAILY 10/27/19 [History] busPIRone [Buspar] 5 mg PO TID 10/27/19 [History] hydrALAZINE [Apresoline] 25 mg PO QID 10/27/19 [History] Ascorbic Acid [Vitamin C] 1,000 mg PO DAILY 10/01/20 [History] cilostazoL [Pletal] 100 mg PO BID 10/01/20 [History] tiZANidine [Zanaflex] 2 mg PO BID 10/01/20 [History] Calcitonin ([place]) [Miacalcin Nasal [place]] 1 spray JOHN DAILY #1 bottle 05/31/21 [Rx] Past Medical History HEENT History: Reports: Cataract, Impaired Vision Cardiovascular History: Reports: High Cholesterol, Hypertension Respiratory History: Reports: Asthma Gastrointestinal History: Reports: GERD Genitourinary History: Reports: Renal Disease [employer] History: Reports: Musculoskeletal History: Reports: Osteoporosis, RA, Other (See Below) Other Musculoskeletal History: Polymyalgia rheumatica Neurological History: Reports: Concussion Psychiatric History: Reports: Anxiety, Other (See Below) Other Psychiatric History: forgettful Endocrine/Metabolic History: Reports: Hyperparathyroidism Hematologic History: Reports: Other (See Below) Other Hematologic History: elevated WBC, refered hematology Dermatologic History: Reports: Cellulitis - Infectious Disease History Infectious Disease History: Reports: Chicken Pox - Past Surgical History HEENT Surgical History: Reports: None Cardiovascular Surgical History: Reports: None Respiratory Surgical History: Reports: None GI Surgical History: Reports: Appendectomy, Colon Female Surgical History: Reports: Section Endocrine Surgical History: Reports: None Neurological Surgical History: Reports: None Musculoskeletal Surgical History: Reports: None Dermatological Surgical History: Reports: Other (See Below) Social & Family History - Family History Family Medical History: No Pertinent Family History - Tobacco Use Tobacco Use Status *Q: Never Tobacco User Second Hand Smoke Exposure: No - Caffeine Use Caffeine Use: Reports: Coffee Other Caffeine Use: 1 cup coffee per day - Recreational Drug Use Recreational Drug Use: No ED ROS GENERAL - Review of Systems Review Of Systems: See Below Constitutional: Reports: Fatigue, Decreased Appetite, Weight Loss HEENT: Reports: No Symptoms Respiratory: Reports: Shortness of Breath, Other (more sob then usual. Breathing rapidly) Cardiovascular: Reports: Dyspnea on Exertion Endocrine: Reports: Fatigue GI/Abdominal: Reports: Abdominal Pain, Other (pt is having mid abdomanal pain. d) : Reports: No Symptoms Musculoskeletal: Reports: Muscle Pain Skin: Reports: No Symptoms Neurological: Reports: No Symptoms Psychiatric: Reports: Anxiety ED EXAM, GENERAL - Physical Exam Exam: See Below Free Text/Narrative:: pt arrived with a history of a recent concusion. She had another fall and was found to have compression fractures of t11 and t8. She is much more sob than usual. She john a history of ruematica amd rheumatoid arthritis. She is breathing rapidly and in getting further history she is taking 3000 mg of tylenol daily Exam Limited By: No Limitations General Appearance: Alert, Anxious, Mild Distress, Other (pt is breathing rapidly) Ears: Normal TMs Nose: Normal Inspection Throat/Mouth: Normal Inspection Head: Atraumatic Neck: Normal Inspection Respiratory/Chest: Decreased Breath Sounds, Other (pt is breathing rapidly) Cardiovascular: Regular Rate, Rhythm, Tachycardia GI/Abdominal: Soft, Non-Tender (Female) Exam: Deferred Rectal (Female) Exam: Deferred Back Exam: Normal Inspection Extremities: Normal Inspection Neurological: Alert, Oriented, Normal Cognition, Other ( very anxious appearing) Psychiatric: Anxious Course - Vital Signs Last Recorded V/S: Last Vital Signs Temp 36.6 C 06/22/21 17:44 Pulse 104 H 06/22/21 20:34 Resp 36 H 06/22/21 20:34 BP 152/98 H 06/22/21 20:34 Pulse Ox 97 06/22/21 20:34 - Orders/Labs/Meds Orders: Active Orders 24 hr Category Date Time Status Admission Status [Patient Status] [ADT] Routine ADT 06/22/21 22:00 Active Abdomen Ltd [US] Stat Exams 06/22/21 20:33 Ordered DD [D-DIMER QUANTITATIVE] [COAG] Stat Lab 06/22/21 21:52 Ordered Sodium Chloride 0.9% [Normal Saline] 1,000 ml Med 06/22/21 19:15 Active IV ASDIRECTED Isolation [COMM] Stat Oth 06/22/21 19:53 Ordered Medication Orders Sodium Chloride (Normal Saline) 1,000 mls @ 500 mls/hr IV ASDIRECTED PHONG Last Infusion: 06/22/21 20:35 Dose: 100 mls/hr Documented by: Admin: 06/22/21 20:25 Dose: 500 mls/hr Documented by: GRABIEL Labs: Laboratory Tests 06/22/21 06/22/21 06/22/21 Range/Units 19:15 19:27 19:27 WBC 11.3 H (4.5-11.0) K/uL RBC 3.94 (3.30-5.50) M/uL Hgb 12.3 (12.0-15.0) g/dL Hct 38.6 (36.0-48.0) % MCV 98 (80-98) fL MCH 31 (27-31) pg MCHC 32 (32-36) % Plt Count 399 (150-400) K/uL Neut % (Auto) 72.4 H (36-66) % Lymph % (Auto) 12.1 L (24-44) % [place] % (Auto) 12.2 H (2-6) % Eos % (Auto) 2.8 (2-4) % Baso % (Auto) 0.5 (0-1) % Puncture Site ABG pH (7.350-7.450) ABG pCO2 (35.0-42.0) mmHg ABG pO2 (75.0-100.0) mmHg ABG HCO3 (22.0-26.0) mmol/L ABG Total CO2 (21.0-25.0) mmol/L ABG O2 Saturation (95.0-98.0) % ABG O2 Content (15.0-23.0) %vol ABG Base Excess mm/L ABG Hemoglobin (12.0-16.0) g/dL ABG Oxyhemoglobin % ABG Carboxyhemoglobin (0.0-1.6) % ABG Methemoglobin % Con Test O2 Delivery Device Sodium (140-148) mmol/L Potassium (3.6-5.2) mmol/L Chloride (100-108) mmol/L Carbon Dioxide (21-32) mmol/L Anion Gap (5.0-14.0) mmol/L BUN (7-18) mg/dL Creatinine (0.6-1.0) mg/dL Est Cr Clr Drug Dosing mL/min Estimated GFR (MDRD) (>60) Glucose (74-106) mg/dL Calcium (8.5-10.1) mg/dL Total Bilirubin (0.2-1.0) mg/dL AST (15-37) U/L ALT (12-78) U/L Alkaline Phosphatase (46-116) U/L C-Reactive Protein 1.93 H (0.0-0.3) mg/dL NT-Pro-B Natriuret Pep 9200 H (5-125) pg/mL Total Protein (6.4-8.2) g/dL Albumin (3.4-5.0) g/dL Globulin (2.3-3.5) g/dL Albumin/Globulin Ratio (1.2-2.2) Lipase (73-393) U/L Urine Color (YELLOW) Urine Appearance (CLEAR) Urine pH (5.0-8.0) Ur Specific [place] (1.008-1.030) Urine Protein (NEGATIVE) mg/dL Urine Glucose (UA) (NEGATIVE) mg/dL Urine Ketones (NEGATIVE) mg/dL Urine Occult Blood (NEGATIVE) Urine Nitrite (NEGATIVE) Urine Bilirubin (NEGATIVE) Urine Urobilinogen (0.2-1.0) EU/dL Ur Leukocyte Esterase (NEGATIVE) Urine RBC (0-5) Urine WBC (0-5) Ur Epithelial Cells Amorphous Sediment Urine Bacteria Urine Mucus Influenza Type A RNA (NEGATIVE) RSV RNA (INAAT) (NEGATIVE) Influenza Type B RNA (NEGATIVE) SARS-CoV-2 RNA (SABRINA) (NEGATIVE) 06/22/21 06/22/21 06/22/21 Range/Units 19:27 19:27 19:44 WBC (4.5-11.0) K/uL RBC (3.30-5.50) M/uL Hgb (12.0-15.0) g/dL Hct (36.0-48.0) % MCV (80-98) fL MCH (27-31) pg MCHC (32-36) % Plt Count (150-400) K/uL Neut % (Auto) (36-66) % Lymph % (Auto) (24-44) % [place] % (Auto) (2-6) % Eos % (Auto) (2-4) % Baso % (Auto) (0-1) % Puncture Site Lt radial ABG pH 7.313 L (7.350-7.450) ABG pCO2 26.2 L (35.0-42.0) mmHg ABG pO2 83.0 (75.0-100.0) mmHg ABG HCO3 12.9 L (22.0-26.0) mmol/L ABG Total CO2 11.8 L (21.0-25.0) mmol/L ABG O2 Saturation 96.1 (95.0-98.0) % ABG O2 Content 16.7 (15.0-23.0) %vol ABG Base Excess -11.6 mm/L ABG Hemoglobin 12.6 (12.0-16.0) g/dL ABG Oxyhemoglobin 94.1 % ABG Carboxyhemoglobin 1.1 (0.0-1.6) % ABG Methemoglobin 1.0 % Con Test Pass O2 Delivery Device Room air Sodium 146 (140-148) mmol/L Potassium 4.1 (3.6-5.2) mmol/L Chloride 114 H (100-108) mmol/L Carbon Dioxide 17 L (21-32) mmol/L Anion Gap 19.1 H (5.0-14.0) mmol/L BUN 45 H (7-18) mg/dL Creatinine 2.2 H (0.6-1.0) mg/dL Est Cr Clr Drug Dosing 16.42 mL/min Estimated GFR (MDRD) 22 L (>60) Glucose 81 (74-106) mg/dL Calcium 9.1 (8.5-10.1) mg/dL Total Bilirubin 0.3 (0.2-1.0) mg/dL AST 40 H (15-37) U/L ALT 67 (12-78) U/L Alkaline Phosphatase 263 H (46-116) U/L C-Reactive Protein (0.0-0.3) mg/dL NT-Pro-B Natriuret Pep (5-125) pg/mL Total Protein 6.5 (6.4-8.2) g/dL Albumin 3.2 L (3.4-5.0) g/dL Globulin 3.3 (2.3-3.5) g/dL Albumin/Globulin Ratio 1.0 L (1.2-2.2) Lipase 150 (73-393) U/L Urine Color (YELLOW) Urine Appearance (CLEAR) Urine pH (5.0-8.0) Ur Specific [place] (1.008-1.030) Urine Protein (NEGATIVE) mg/dL Urine Glucose (UA) (NEGATIVE) mg/dL Urine Ketones (NEGATIVE) mg/dL Urine Occult Blood (NEGATIVE) Urine Nitrite (NEGATIVE) Urine Bilirubin (NEGATIVE) Urine Urobilinogen (0.2-1.0) EU/dL Ur Leukocyte Esterase (NEGATIVE) Urine RBC (0-5) Urine WBC (0-5) Ur Epithelial Cells Amorphous Sediment Urine Bacteria Urine Mucus Influenza Type A RNA (NEGATIVE) RSV RNA (INAAT) (NEGATIVE) Influenza Type B RNA (NEGATIVE) SARS-CoV-2 RNA (SABRINA) (NEGATIVE) 06/22/21 06/22/21 Range/Units 20:15 20:20 WBC (4.5-11.0) K/uL RBC (3.30-5.50) M/uL Hgb (12.0-15.0) g/dL Hct (36.0-48.0) % MCV (80-98) fL MCH (27-31) pg MCHC (32-36) % Plt Count (150-400) K/uL Neut % (Auto) (36-66) % Lymph % (Auto) (24-44) % [place] % (Auto) (2-6) % Eos % (Auto) (2-4) % Baso % (Auto) (0-1) % Puncture Site ABG pH (7.350-7.450) ABG pCO2 (35.0-42.0) mmHg ABG pO2 (75.0-100.0) mmHg ABG HCO3 (22.0-26.0) mmol/L ABG Total CO2 (21.0-25.0) mmol/L ABG O2 Saturation (95.0-98.0) % ABG O2 Content (15.0-23.0) %vol ABG Base Excess mm/L ABG Hemoglobin (12.0-16.0) g/dL ABG Oxyhemoglobin % ABG Carboxyhemoglobin (0.0-1.6) % ABG Methemoglobin % Con Test O2 Delivery Device Sodium (140-148) mmol/L Potassium (3.6-5.2) mmol/L Chloride (100-108) mmol/L Carbon Dioxide (21-32) mmol/L Anion Gap (5.0-14.0) mmol/L BUN (7-18) mg/dL Creatinine (0.6-1.0) mg/dL Est Cr Clr Drug Dosing mL/min Estimated GFR (MDRD) (>60) Glucose (74-106) mg/dL Calcium (8.5-10.1) mg/dL Total Bilirubin (0.2-1.0) mg/dL AST (15-37) U/L ALT (12-78) U/L Alkaline Phosphatase (46-116) U/L C-Reactive Protein (0.0-0.3) mg/dL NT-Pro-B Natriuret Pep (5-125) pg/mL Total Protein (6.4-8.2) g/dL Albumin (3.4-5.0) g/dL Globulin (2.3-3.5) g/dL Albumin/Globulin Ratio (1.2-2.2) Lipase (73-393) U/L Urine Color Yellow (YELLOW) Urine Appearance Clear (CLEAR) Urine pH 5.0 (5.0-8.0) Ur Specific [place] 1.020 (1.008-1.030) Urine Protein Trace H (NEGATIVE) mg/dL Urine Glucose (UA) Negative (NEGATIVE) mg/dL Urine Ketones Negative (NEGATIVE) mg/dL Urine Occult Blood Negative (NEGATIVE) Urine Nitrite Negative (NEGATIVE) Urine Bilirubin Negative (NEGATIVE) Urine Urobilinogen 0.2 (0.2-1.0) EU/dL Ur Leukocyte Esterase Negative (NEGATIVE) Urine RBC 0-5 (0-5) Urine WBC 0-5 (0-5) Ur Epithelial Cells Not seen Amorphous Sediment Not seen Urine Bacteria Few Urine Mucus Not seen Influenza Type A RNA Negative (NEGATIVE) RSV RNA (INAAT) Negative (NEGATIVE) Influenza Type B RNA Negative (NEGATIVE) SARS-CoV-2 RNA (SABRINA) Negative (NEGATIVE) Meds: Medications Generic Name Dose Route Start Last Admin Trade Name Freq PRN Reason Stop Dose Admin Sodium Chloride 1,000 mls @ 500 mls/hr 06/22/21 19:15 06/22/21 20:35 Normal Saline IV 100 mls/hr ASDIRECTED PHONG Infusion Discontinued Medications Generic Name Dose Route Start Last Admin Trade Name Freq PRN Reason Stop Dose Admin Ondansetron HCl 4 mg 06/22/21 20:20 06/22/21 20:36 Ondansetron 4 Mg/2 Ml Sdv IVPUSH 06/22/21 20:21 4 mg ONETIME ONE Administration - Re-Assessments/Exams Free Text/Narrative Re-Assessment/Exam: 06/22/21 22:29 pt gives a history of using alot of tylenol. She has been taking tylenol 4000 or greater every day. This could be causing her acidosis. She had a limited US of the abdoman which was not remarkable. Her ddimer is still pending. Departure - Departure Time of Disposition: 22:31 Disposition: Admitted As Inpatient 64 Condition: Fair Clinical Impression: Acidosis, History of concussion, Renal insufficiency, Elevated brain natriuretic peptide (BNP) level Compression fx, thoracic spine Qualifiers: Encounter type: initial encounter Thoracic vertebra fracture level: T11 Qualified Code(s): S22.080A - Wedge compression fracture of T11-T12 vertebra, initial encounter for closed fracture - Discharge Information Referrals: Roverto Dewey MD [Primary Care Provider] - Forms: ED Department Discharge Care Plan Goals: admit to Dr Dolan Sepsis Event Note (ED) - Evaluation Sepsis Screening Result: No Definite Risk - Focused Exam Vital Signs: Vital Signs Temp Pulse Resp BP Pulse Ox 06/22/21 20:34 104 H 36 H 152/98 H 97 06/22/21 19:27 92 16 155/105 H 95 06/22/21 17:44 36.6 C 100 22 H 161/87 H 95 06/22/21 17:07 36.6 C 100 22 H 161/87 H 95 - My Orders Last 24 Hours: My Active Orders 06/22/21 19:15 Sodium Chloride 0.9% [Normal Saline] 1,000 ml IV ASDIRECTED 06/22/21 19:53 Isolation [COMM] Stat 06/22/21 20:33 Abdomen Ltd [US] Stat 06/22/21 21:52 DD [D-DIMER QUANTITATIVE] [COAG] Stat 06/22/21 22:00 Admission Status [Patient Status] [ADT] Routine - Assessment/Plan Last 24 Hours: My Active Orders 06/22/21 19:15 Sodium Chloride 0.9% [Normal Saline] 1,000 ml IV ASDIRECTED 06/22/21 19:53 Isolation [COMM] Stat 06/22/21 20:33 Abdomen Ltd [US] Stat 06/22/21 21:52 DD [D-DIMER QUANTITATIVE] [COAG] Stat 06/22/21 22:00 Admission Status [Patient Status] [ADT] Routine
[2021-06-22] MEDS ORDERED: Ondansetron 4 MG/2 ML SDV IVPUSH ONE (20:20)
[2021-06-22 21:00] LABS: CORONAVIRUS COVID-19 NAA NEGATIVE (NEGATIVE)
--- NOTE | 2021-06-22 22:21 | CRLUS ---
For Patients: As a result of the Cures Act, medical imaging exams and procedure reports are released immediately into your electronic medical record. You may view this report before your referring provider. If you have questions, please contact your health care provider. INDICATION: Abdominal pain TECHNIQUE: Ultrasound abdomen limited. Sonographic images of the right upper quadrant were obtained using rod-scale and color Doppler images. COMPARISON: None FINDINGS: Liver: Liver is mildly heterogeneous in echotexture. Gallbladder: The neck of the gallbladder is not well demonstrated. No gallstones or sludge seen in the lumen. The gallbladder wall is normal in appearance. No pericholecystic fluid is present. No sonographic [place] sign is present. Common bile duct: 3 mm. No intrahepatic biliary ductal dilatation seen. Pancreas: The visualized portions of the pancreatic head and body are normal in appearance. Right Kidney: 9.4 cm. There is a cyst in the upper pole of the right kidney measuring 2 x 1.8 cm. No hydronephrosis or ureterectasis is seen. Vascular: The visualized aorta is normal appearance and caliber. IVC is not well demonstrated. The visualized portal vein is patent with normal anterograde flow. IMPRESSION: 1. The right upper quadrant is unremarkable in appearance. Dictated by Moises Valdivia MD @ 06/22/2021 10:20:35 PM Dictated by: Moises Valdivia MD @ 06/22/2021 22:20:42 (Electronically Signed)
[2021-06-22] MEDS ORDERED: Ketorolac 10 MG Tab PO ONE (22:23)
[2021-06-22] MEDS ORDERED: Diclofenac Sodium 1% Gel 100 GM Tube TOP PRN (23:18)
[2021-06-23] MEDS ORDERED: Ondansetron 4 MG Tab.DIS PO PRN (00:19)
[2021-06-23] MEDS ORDERED: Amitriptyline 25 MG Tab PO SCH ×2 (01:09→21:00)
[2021-06-23] MEDS ORDERED: Amitriptyline 25 MG Tab ONE (01:21)
[2021-06-23] MEDS: tiZANidine 2 MG Tab PO SCH ×2 (01:29→08:27)
--- NOTE | 2021-06-23 03:40 | HP ---
IDENTIFYING DATA: Betty Singleton is a 70-year-old female from [place]. CHIEF COMPLAINT: Weakness and shortness of breath. HISTORY OF PRESENT ILLNESS: Elderly female has noted history of chronic health problems including hypertension, rheumatoid arthritis with long-term steroid therapy, polymyalgia rheumatica, osteoporosis with accompanying vertebral compression disease, and GE reflux. Additionally, she has had a history of chronic renal disease with a creatinine of greater than 2 and GFR of less than 25. She presents today with complaints of anorexia, nonspecific abdominal pain, sensation of subjective shortness of breath. She has had chronically loose stools with occasional watery diarrheal events noting a prior history of bowel prep, perforation requiring surgical resection and re-anastomosis. She has had no fevers, chills, purulent sputum production, sore throat, or noted COVID exposure. No melena, hematochezia, dysuria, or flank pain noted. PAST MEDICAL HISTORY: PREVIOUS SURGERIES: Include as well as appendectomy and colon resection. Chronic health problems as noted above. ALLERGIES: REPORTED TO AMLODIPINE, INDOMETHACIN, LEVOFLOXACIN, NAPROXEN, PAROXETINE, AND TRAZODONE. CURRENT HOME MEDICATIONS: Include amitriptyline 125 mg at h.s., multivitamin 1 daily, prednisone 7.5 mg daily for chronic rheumatologic disease, carvedilol 6.25 mg b.i.d., acetaminophen used p.r.n. up to 4000 mg daily, diclofenac gel apply q.i.d. p.r.n. arthralgias, pantoprazole 40 mg daily, tryptophan 2000 mg daily p.r.n. insomnia, CoQ10 one tablet daily, buspirone 5 mg t.i.d., hydralazine 25 mg q.i.d., ascorbic acid 1000 mg daily, Pletal 100 mg b.i.d., tizanidine 2 mg b.i.d., calcitonin nasal spray use once daily. HABITS: Nonsmoker. No alcohol use. Infrequent use of caffeinated beverages. IMMUNIZATIONS: Has received Moderna COVID primary vaccine series and booster. Additionally, she has received her annual influenza vaccine. SOCIAL HISTORY: Retired, residing with her in their [place] residence. She performs ADLs independently. Occasionally uses a walking stick as an ambulatory aid. She does note general unsteadiness and periods of falls without noted loss of consciousness or syncope. FAMILY HISTORY: Noncontributory. REVIEW OF SYSTEMS: NEUROLOGIC: No strokes, seizures, chronic headaches, or focal weakness. Does have periods of general paresthesias in the feet, waxing and waning. CARDIAC: History of hypertension. No history of diabetes, congenital heart disease, [place], chest pain. Recent Holter monitor has been completed, though reading by Cardiology and final results are pending. RESPIRATORY: Denies asthma, emphysema, or recent acute upper respiratory infections. GI: As above. No history of hepatobiliary disease reported. No melena or hematochezia. : Chronic renal disease with elevated creatinine and GFR of less than 25. No urinary incontinence. Rises twice nightly to void. MUSCULOSKELETAL: Chronic arthralgias of rheumatoid arthritis with steroid suppressive therapy as well as polymyalgia rheumatica. She has osteoporosis with noted vertebral compression fractures secondary to falls. PHYSICAL EXAMINATION: VITAL SIGNS: On admission, temperature 36.6 degrees centigrade, pulse 104, respiratory rate 36, blood pressure 152/98, O2 sats 97% on room air. HEENT: Hearing is intact. Extraocular eye movements are symmetrical. Sclerae anicteric. No oropharyngeal lesions. Mucosa is moist. NECK: Brisk carotid pulses regular. No bruits or JVD. No nuchal rigidity. LUNGS: Symmetrical, clear. Transiently tachypneic with waxing and waning rate. No rales or rhonchi noted. HEART: Regular without murmurs or gallops evident. ABDOMEN: Nondistended. Active sounds. No organomegaly. No guarding, rebound, or referred pain. No CVA tenderness. Mild tenderness in the upper abdomen with deep palpation. No localized pain. EXTREMITIES: Warm and pink. Nondiaphoretic. Good turgor. Has strong arterial pulses. No open skin lesions. No jaundice evident. Does have some superficial ecchymosis over the anterior chest, where recent Holter monitor leads in place with adhesive were removed. LABORATORY DATA: On admission, WBC 11.3, hemoglobin 12.3, platelet count 399,000 with 72% neutrophils, 12% lymphocytes, 12% monos, 2.8% eosinophils. C-reactive protein elevated at 1.93 in this elderly female with a history of chronic rheumatoid arthritis. BNP elevated at 9200. Sodium 146, potassium 4.1, chloride 114, BUN 45, creatinine 2.2, GFR depressed at 22, glucose 81, calcium 9.1, AST 40, ALT 67, alkaline phosphatase 263, albumin low at 3.2, lipase 150. Urinalysis unremarkable dipstick. Influenza RSV and COVID testing negative. ABGs include a pH depressed at 7.31, pCO2 of 26, bicarb low at 12.9, CO2 of 11.8, O2 saturations 96% on room air. Urine drug screen positive for tricyclics with noted prescription for amitriptyline. Negative for narcotics, stimulants, benzodiazepine, THC. IMPRESSION: 1. Metabolic acidosis with partial respiratory compensation likely secondary to underlying chronic renal disease with elevated creatinine and chronically depressed GFR. 2. Chronic essential hypertension. 3. History of rheumatoid arthritis with long-term steroid therapy. 4. Polymyalgia rheumatica. 5. Osteoporosis with vertebral compression fractures. 6. Gastroesophageal reflux disease with proton pump inhibitor therapy. PLAN: The patient is admitted to observation status overnight. Recently requested Holter monitor as an outpatient. Has been completed with Cardiology review pending. Additionally, we will request echocardiogram to assess overall cardiac function with noted periods of generalized weakness and falls as well as elevated BNP. Renal function shows chronic stage V changes with depressed GFR. This is not showing further decline from lab values generally identified as an outpatient. Metabolic acidosis is likely secondary to her renal disease. We will initiate bicarbonate replacement with sodium bicitrate and continue as an outpatient. Followup administered orally with meals. Given weakness, Rehab Service has initiated evaluation and strengthening program. We will ask that they follow up tomorrow as had been tentatively scheduled. Immunizations including COVID and influenza vaccines are current and up to date. Anticipate probable discharge to home in less than 24 hours on completion of echocardiogram and institution of sodium bicitrate therapy for bicarbonate replacement. Then, we will defer to regular provider for outpatient followup and management. Juan Dolan MD /[id number]
[2021-06-23] MEDS ORDERED: hydrALAZINE 25 MG Tab PO SCH ×2 (06:00→09:00)
--- NOTE | 2021-06-23 06:11 | DISCH ---
REASON FOR ADMISSION: 70-year-old female with a history of chronic renal stage 5 insufficiency, osteoporosis secondary to long-term steroid therapy, hypertension, and rheumatoid arthritis with accompanying polymyalgia rheumatica was admitted with constitutional symptoms including weakness, subjective shortness of breath, and mild GI upset with anorexia. She had no fevers, chills, hypoxia, or pleuritic pain. Vaccinations including COVID series and influenza vaccines were current. PHYSICAL EXAMINATION: VITAL SIGNS: On admission, tachypneic with respiratory rates of 22 to 28. O2 sats maintained in the high 90s. Vital signs otherwise stable. HEENT: Noncontributory. NECK: Noncontributory. LUNGS: Mildly tachypneic. No wheezes, rales, or rhonchi noted. HEART: Regular without murmurs or gallops. ABDOMEN: Nondistended. No organomegaly. Mild general discomfort to deep palpation without guarding, rebound, or referred pain. EXTREMITIES: Warm, pink, dry. No pitting edema. No ischemic skin changes. Intact pulses noted. LABORATORY DATA: On admission, WBC 11.3, hemoglobin 12.3, platelet count 399,000. D-dimer chronically elevated at 1888. ABGs included a pH in the acidotic range of 7.31, pCO2 low at 26, pO2 of 83, bicarb low at 13 with O2 saturations of 96% on room air. Sodium 146, potassium 4.1, BUN 45, creatinine chronically elevated at 2.2 with a GFR of 22, glucose 81, alkaline phosphatase 263, AST 40. BNP was elevated at 9200. Urinalysis unremarkable. Urine drug screen positive for prescribed tricyclic agents, otherwise unremarkable. HOSPITAL COURSE: Betty was admitted with subjective shortness of breath and anorexia. She had evidence of metabolic alkalosis with compensatory tachypnea and respiratory drive with depressed CO2. During hospital stay, vital signs remained stable with O2 sats remaining in the 90s on room air. Blood pressure was unremarkable. She was placed on sodium bicitra for reasons of metabolic acidosis secondary to underlying advanced renal insufficiency and was tolerating diets. In light of elevated BNP, echocardiogram to assess overall cardiac function was requested, though she did not have evidence of overt cardiac failure. Additionally, it is noted recent Holter monitor has been obtained. Final review by Cardiology Services is pending at this time with overall condition appearing stable and unchanging. Plans for discharge to home were made. DISCHARGE INSTRUCTIONS: Home on 06/23/2021 following echocardiogram and previously scheduled physical therapy session. DIET: Low sodium. ACTIVITY: Up as tolerated. Advised to keep pending appointment with primary caregiver in 4 days' time at [facility]. MEDICATIONS: Will resume usual home medications. Additionally, we will decrease Apresoline to 25 mg t.i.d. and continue with bicarbonate replacement with sodium citrate 25 mL p.o. b.i.d. with meals. A prescription for 10 days of therapy provided until pending followup with regular provider. ADMITTING DIAGNOSES: 1. Metabolic acidosis with respiratory compensation secondary to underlying chronic renal disease. 2. Chronic essential hypertension. 3. Rheumatoid arthritis with long-term steroid therapy. 4. Polymyalgia rheumatica. 5. Osteoporosis with vertebral compression fractures. 6. Gastroesophageal reflux disease with patient maintained on proton pump inhibitor therapy. DISCHARGE DIAGNOSES: 1. Metabolic acidosis with respiratory compensation secondary to underlying chronic renal disease. 2. Chronic essential hypertension. 3. Rheumatoid arthritis with long-term steroid therapy. 4. Polymyalgia rheumatica. 5. Osteoporosis with vertebral compression fractures. 6. Gastroesophageal reflux disease with patient maintained on proton pump inhibitor therapy. /[id number]
[2021-06-23] MEDS ORDERED: Pantoprazole 40 MG Tab.CR PO SCH (07:30)
[2021-06-23] MEDS ORDERED: Carvedilol 3.125 MG Tab PO SCH (08:00)
[2021-06-23] MEDS ORDERED: predniSONE 5 MG Tab PO SCH (08:00)
[2021-06-23] MEDS ORDERED: Citric Acid/Sodium Citrate Solution 30 ML Cup PO SCH (08:00)
[2021-06-23] MEDS ORDERED: Calcitonin (Salmon) Nasal Spray 3.7 ML Bottle NAS SCH (09:00)
[2021-06-23] MEDS ORDERED: Multivitamins with Iron/Calcium/Folic Acid/Minerals Tab PO SCH (09:00)
[2021-06-23] MEDS ORDERED: tiZANidine 2 MG Tab PO SCH (09:00)
[2021-06-23] MEDS ORDERED: busPIRone 5 MG Tab PO SCH (09:00)
[2021-06-23] MEDS ORDERED: rOPINIRole 0.5 MG Tab PO SCH (21:00)
== END 2021-06-23 10:50 | disposition home or self-care (01) ==
LOC: JP.ED 15:54 → INTOOBSV 22:00 → JP.MS 22:00
PROVIDERS: ADMIT Family Medicine; ATTEND Family Medicine
DX: E87.2 Acidosis (principal); R06.02 Shortness of breath; R79.0 Abnormal level of blood mineral; N28.9 Disorder of kidney and ureter, unspecified; S22.080A Wedge compression fracture of T11-T12 vertebra, initial encounter for closed fracture; H54.7 Unspecified visual loss; E78.00 Pure hypercholesterolemia, unspecified; I10 Essential (primary) hypertension; J45.909 Unspecified asthma, uncomplicated; K21.9 Gastro-esophageal reflux disease without esophagitis; M81.0 Age-related osteoporosis without current pathological fracture; M06.9 Rheumatoid arthritis, unspecified; M35.3 Polymyalgia rheumatica; F41.9 Anxiety disorder, unspecified; E21.3 Hyperparathyroidism, unspecified; Z20.822 Contact with and (suspected) exposure to COVID-19; Z88.1 Allergy status to other antibiotic agents; Z88.8 Allergy status to other drugs, medicaments and biological substances; Z79.52 Long term (current) use of systemic steroids; Z79.899 Other long term (current) drug therapy
CPT/HCPCS: 0241U; 36415; 36600; 71046; 76705; 80053; 80143; 80179; 80305; 81001; 82803; 83605; 83690; 83735; 83880; 85025; 85379; 86140; 93308; 96374; 97161; 99285; A9270; J2405; J7030; J7512; G0378

== ENCOUNTER 2021-07-24 13:51 | Emergency (ER) | payer MEDICARE, BC ==
--- NOTE | 2021-07-24 14:40 | EDM.PDOC ---
ED HPI GENERAL MEDICAL PROBLEM - General Chief Complaint: General Stated Complaint: LABORED BREATHING, TINGLING BODY, DIZZINESS Time Seen by Provider: 07/24/21 14:33 Source of Information: Reports: Patient History Limitations: Reports: No Limitations - History of Present Illness INITIAL COMMENTS - FREE TEXT/NARRATIVE: pt arrived with a history of being very sob at times in the last 24 hours. She does not have chest pain. Onset: Gradual Duration: Hour(s): Location: Reports: Chest Associated Symptoms: Reports: Shortness of Breath, Weakness Generalized Pain Score (Numeric/FACES): 2 - Related Data Allergies Allergy/AdvReac Type Severity Reaction Status Date / Time amlodipine [From Norvasc] AdvReac Muscle Verified 06/22/21 17:37 Aches indomethacin [From Indocin] AdvReac Nausea Verified 06/22/21 17:37 indomethacin sodium AdvReac Nausea Verified 06/22/21 17:37 [From Indocin] levofloxacin [From Levaquin] AdvReac Leg Cramps Verified 06/22/21 17:37 naproxen [From Naprosyn] AdvReac Nausea Verified 06/22/21 17:37 paroxetine [From Paxil] AdvReac Muscle Verified 06/22/21 17:37 Aches trazodone AdvReac Nausea Verified 06/22/21 17:37 Home Meds: Home Meds Amitriptyline [Elavil] 125 mg PO BEDTIME 09/15/13 [History] Multivitamin [Multi-Vitamin Daily] 1 each PO DAILY 09/15/13 [History] predniSONE [Prednisone] 7.5 mg PO DAILY 09/15/13 [History] carvediloL [Carvedilol] 6.25 mg PO BID 03/04/18 [History] Acetaminophen 2,000 mg PO BID 10/27/19 [History] Diclofenac Sodium [Voltaren 1% Gel] 4 gram TOP QID PRN 10/27/19 [History] Pantoprazole Sodium [Protonix] 40 mg PO DAILY 10/27/19 [History] Tryptophan [l-Tryptophan] 2,000 mg PO DAILY PRN 10/27/19 [History] Ubidecarenone [Coq-10] 1 tab PO DAILY 10/27/19 [History] busPIRone [Buspar] 5 mg PO TID 10/27/19 [History] Ascorbic Acid [Vitamin C] 1,000 mg PO DAILY 10/01/20 [History] cilostazoL [Pletal] 100 mg PO BID 10/01/20 [History] tiZANidine [Zanaflex] 2 mg PO BID 10/01/20 [History] Calcitonin ([place]) [Miacalcin Nasal [place]] 1 spray JOHN DAILY #1 bottle 05/31/21 [Rx] Citric Acid/Sodium Citrate [Bicitra Solution] 25 ml PO BIDMEALS #500 ml 06/23/21 [Rx] hydrALAZINE [Apresoline] 25 mg PO TID #0 06/23/21 [Rx] Past Medical History HEENT History: Reports: Cataract, Impaired Vision Cardiovascular History: Reports: High Cholesterol, Hypertension Respiratory History: Reports: Asthma Gastrointestinal History: Reports: GERD Genitourinary History: Reports: Renal Disease [employer] History: Reports: Musculoskeletal History: Reports: Osteoporosis, RA, Other (See Below) Other Musculoskeletal History: Polymyalgia rheumatica Neurological History: Reports: Concussion Psychiatric History: Reports: Anxiety, Other (See Below) Other Psychiatric History: forgettful Endocrine/Metabolic History: Reports: Hyperparathyroidism Hematologic History: Reports: Other (See Below) Other Hematologic History: elevated WBC, refered hematology Dermatologic History: Reports: Cellulitis - Infectious Disease History Infectious Disease History: Reports: Chicken Pox - Past Surgical History HEENT Surgical History: Reports: None Cardiovascular Surgical History: Reports: None Respiratory Surgical History: Reports: None GI Surgical History: Reports: Appendectomy, Colon Female Surgical History: Reports: Section Endocrine Surgical History: Reports: None Neurological Surgical History: Reports: None Musculoskeletal Surgical History: Reports: None Dermatological Surgical History: Reports: Other (See Below) Social & Family History - Family History Family Medical History: No Pertinent Family History - Tobacco Use Tobacco Use Status *Q: Never Tobacco User - Caffeine Use Caffeine Use: Reports: None Other Caffeine Use: 1 cup coffee per day - Recreational Drug Use Recreational Drug Use: No ED ROS GENERAL - Review of Systems Review Of Systems: See Below Constitutional: Reports: No Symptoms HEENT: Reports: No Symptoms Respiratory: Reports: Shortness of Breath, Other ( this comes in episodes. She has a good o2 sat. ) Cardiovascular: Reports: No Symptoms Endocrine: Reports: No Symptoms GI/Abdominal: Reports: Other ( chronic bloating. ) : Reports: No Symptoms Musculoskeletal: Reports: No Symptoms Skin: Reports: No Symptoms Neurological: Reports: No Symptoms Psychiatric: Reports: Anxiety ED EXAM, GENERAL - Physical Exam Exam: See Below Free Text/Narrative:: pt is having episodes of feeling very sob. She is breathing rapidly. Exam Limited By: No Limitations General Appearance: Alert, Anxious, Mild Distress, Other (pt has good o2 sats. ) Ears: Normal TMs Nose: Normal Inspection Throat/Mouth: Normal Inspection Head: Atraumatic Neck: Normal Inspection Respiratory/Chest: Decreased Breath Sounds, Rales Cardiovascular: Regular Rate, Rhythm, Other ( rate is 80. ) GI/Abdominal: Soft, Non-Tender (Female) Exam: Deferred Rectal (Female) Exam: Deferred Back Exam: Normal Inspection Extremities: Pedal Edema, Other (pt has some eedema in the ankles. ) Neurological: Alert, Oriented, Normal Cognition Psychiatric: Anxious Course - Vital Signs Last Recorded V/S: Last Vital Signs Temp 36.3 C 07/24/21 14:16 Pulse 83 07/24/21 16:08 Resp 14 07/24/21 16:08 BP 125/73 07/24/21 16:08 Pulse Ox 97 07/24/21 16:08 - Orders/Labs/Meds Orders: Active Orders 24 hr Category Date Time Status Chest 1V Frontal [CR] Stat Exams 07/24/21 15:22 Taken Labs: Laboratory Tests 07/24/21 Range/Units 15:22 Sodium 143 (140-148) mmol/L Potassium 4.1 (3.6-5.2) mmol/L Chloride 103 (100-108) mmol/L Carbon Dioxide 30 (21-32) mmol/L Anion Gap 10.4 (5.0-14.0) mmol/L BUN 39 H (7-18) mg/dL Creatinine 2.5 H (0.6-1.0) mg/dL Est Cr Clr Drug Dosing 14.35 mL/min Estimated GFR (MDRD) 19 L (>60) Glucose 89 (74-106) mg/dL Calcium 9.2 (8.5-10.1) mg/dL - Re-Assessments/Exams Free Text/Narrative Re-Assessment/Exam: 07/24/21 16:05 Her trental was recently stopped and she thought that could be the cause of her anxious breathing. She also stopped her buspar about 10 days ago. Departure - Departure Time of Disposition: 16:11 Disposition: Home, Self-Care 01 Condition: Fair Clinical Impression: Hyperventilation syndrome, Medication adverse effect - Discharge Information Referrals: Roverto Dewey MD [Primary Care Provider] - Forms: ED Department Discharge Care Plan Goals: stay off of trental. Resume buspar 5 mg bid. follow up appt with Dr dewey. Sepsis Event Note (ED) - Focused Exam Vital Signs: Vital Signs Temp Pulse Resp BP Pulse Ox 07/24/21 16:08 83 14 125/73 97 07/24/21 14:48 75 125/72 98 07/24/21 14:16 36.3 C 77 15 118/70 07/24/21 14:10 36.3 C 77 15 118/70 99 - My Orders Last 24 Hours: My Active Orders 07/24/21 15:22 Chest 1V Frontal [CR] Stat - Assessment/Plan Last 24 Hours: My Active Orders 07/24/21 15:22 Chest 1V Frontal [CR] Stat
--- NOTE | 2021-07-25 09:12 | CR ---
CHEST: Portable 07/24/2021 at 3:31 PM CLINICAL HISTORY:SOB COMPARISON:CT 06/30/2021 and chest x-ray 06/22/2021 FINDINGS: There is chronic elevation right hemidiaphragm diaphragm. There is patchy bibasal airspace disease similar to prior study. IMPRESSION: Persistent bilateral lower lobe airspace disease. This is similar on the right and slightly improved on the left when compared to June study
== END 2021-07-24 16:32 | disposition home or self-care (01) ==
LOC: JP.ED 13:51
DX: F45.8 Other somatoform disorders (principal); T43.595A Adverse effect of other antipsychotics and neuroleptics, initial encounter; I10 Essential (primary) hypertension; J45.909 Unspecified asthma, uncomplicated; K21.9 Gastro-esophageal reflux disease without esophagitis; M06.9 Rheumatoid arthritis, unspecified; Z88.8 Allergy status to other drugs, medicaments and biological substances; Z88.1 Allergy status to other antibiotic agents; Z88.6 Allergy status to analgesic agent; Z88.5 Allergy status to narcotic agent; Z79.899 Other long term (current) drug therapy
CPT/HCPCS: 36415; 71045; 71045-26; 80048; 99285-25

== ENCOUNTER 2021-07-31 06:29 | Day surgery (SDC) | payer MEDICARE, BC ==
[2021-07-31] MEDS ORDERED: Dextrose 5%-Lactated Ringers 1,000 ML IV SCH (07:00)
[2021-07-31] MEDS ORDERED: fentaNYL 100 MCG/2 ML SDV ONE (07:05)
[2021-07-31] MEDS ORDERED: Midazolam 1 MG/ML 2 ML SDV ONE (07:05)
[2021-07-31] MEDS ORDERED: Propofol 200 MG/20 ML SDV ONE (07:05)
--- NOTE | 2021-08-11 10:39 | OR ---
DATE OF PROCEDURE: 07/31/2021 SURGEON: Miles Otero MD PREOPERATIVE DIAGNOSIS: Abdominal pain and weight loss with thickening gastric wall on CT scan. POSTOPERATIVE DIAGNOSES: 1. Abdominal pain and weight loss with thickening gastric wall on CT scan. 2. Moderate sized hiatal hernia without significant esophagitis. 3. Diffusely reddened thickened gastric mucosa consistent with diffuse gastritis. 4. Duodenum showing speckled black markings involving duodenal mucosa of uncertain significance. OPERATIVE PROCEDURE: Esophagogastroduodenoscopy with: 1. Biopsies of gastric body for histologic evaluation. 2. Biopsies of antrum for CLOtest. 3. Biopsy of duodenal bulb for histologic evaluation. ANESTHESIA: IV sedation. INDICATIONS FOR PROCEDURE: This is a 70-year-old female presenting with some ongoing abdominal pain and weight loss and she presently is on Protonix 40 mg a day. Plan is to proceed with upper GI endoscopy with biopsies as indicated. Potential risks including bleeding and perforation were discussed, and the patient wishes to proceed. DETAILS OF PROCEDURE: The patient was taken to the operating room, placed in a left lateral decubitus position. IV sedation was administered after which the upper GI endoscope was passed orally through the length of the esophagus into the stomach with retroflexion into the fundus, and thereafter through the pyloric channel and into the junction of the third and fourth portions of the duodenum. The findings included a normal hypopharynx, larynx, and upper esophageal sphincter. At the EG junction, the patient was noted to have 2 to 3 cm hiatal hernia, however, there was no gross esophagitis present or significant upward migration of the columnar mucosa above the upper gastric folds. Within the stomach, the gastric mucosa was diffusely reddened and thickened. There were no erosions or ulcers seen, but fairly marked diffuse gastritis. As one entered the duodenum, there was some mild edema of the duodenal bulb. The most striking feature was that of quite extensive speckling with black markings on mucosa of the duodenal bulb. This was most prominent within the duodenal bulb, but it did continue through the length of the duodenum to the junction of the third and fourth portions. At this point, biopsies were obtained from the duodenal bulb and sent for histologic evaluation. Biopsies were then obtained from the antrum and sent for CLOtest for H pylori and biopsies were then obtained from the gastric body as well and sent for histologic evaluation. Procedure was then concluded. The patient was taken to the recovery room in satisfactory condition. At this point, we will have the patient continue on Protonix. We will have her start Carafate 1 g q.i.d. and she will be instructed that she can dissolve these pills in the water in a med cup should they be difficult to swallow, and she will be following up with Dr. Dewey as arranged in the next week or 2. Miles Otero MD /[id number]
== END 2021-07-31 09:07 | disposition home or self-care (01) ==
LOC: JP.SDS 06:29
PROVIDERS: ATTEND Surgery
DX: K29.70 Gastritis, unspecified, without bleeding (principal); R63.4 Abnormal weight loss; K31.89 Other diseases of stomach and duodenum; K44.9 Diaphragmatic hernia without obstruction or gangrene; K21.9 Gastro-esophageal reflux disease without esophagitis; E11.22 Type 2 diabetes mellitus with diabetic chronic kidney disease; N18.30 Chronic kidney disease, stage 3 unspecified
CPT/HCPCS: 43239; 87081; 88305; J2704; J3010; J7121; J2250

== ENCOUNTER 2021-08-16 16:32 | Emergency (ER) | payer MEDICARE, BC ==
--- NOTE | 2021-08-16 18:47 | EDM.PDOC ---
ED HPI GENERAL MEDICAL PROBLEM - General Chief Complaint: General Stated Complaint: medication withdrawl Time Seen by Provider: 08/16/21 18:45 Source of Information: Reports: Patient History Limitations: Reports: No Limitations - History of Present Illness INITIAL COMMENTS - FREE TEXT/NARRATIVE: 71-year-old female with multiple medical problems presents to the emergency department feeling very anxious. States that she has been tapering BuSpar and feels that she is in withdrawal. Has gone from 8 tablets a day down to 3 tablets a day gradually, and then as she went down to 2 tablets/day she started to have these problems. She has been having the symptoms for the past 2 days. Scribes internal restlessness. Has tremor. Has anorexia. Poor oral intake. Has some word finding difficulties. Notes that she is hyperventilating. Feels weak. Denies headache. Denies difficulty swallowing. Denies chest pain or shortness of breath. Denies cough or fever. Denies vomiting. Denies diarrhea. Started to taper BuSpar because it was thought to be associated with gait imbalance. Patient has history of recurrent falls. She has compression fractures of spine and rib fractures from past falls. Patient has no other concerns at this time. - Related Data Allergies Allergy/AdvReac Type Severity Reaction Status Date / Time amlodipine [From Norvasc] AdvReac Muscle Verified 08/16/21 18:35 Aches indomethacin [From Indocin] AdvReac Nausea Verified 08/16/21 18:35 indomethacin sodium AdvReac Nausea Verified 08/16/21 18:35 [From Indocin] levofloxacin [From Levaquin] AdvReac Leg Cramps Verified 08/16/21 18:35 naproxen [From Naprosyn] AdvReac Nausea Verified 08/16/21 18:35 paroxetine [From Paxil] AdvReac Muscle Verified 08/16/21 18:35 Aches trazodone AdvReac Nausea Verified 08/16/21 18:35 Home Meds: Home Meds Amitriptyline [Elavil] 75 mg PO BEDTIME 09/15/13 [History] Multivitamin [Multi-Vitamin Daily] 1 each PO DAILY 09/15/13 [History] carvediloL [Carvedilol] 12.5 mg PO BID 03/04/18 [History] Acetaminophen 1,000 mg PO BID 10/27/19 [History] Diclofenac Sodium [Voltaren 1% Gel] 4 gram TOP QID PRN 10/27/19 [History] Pantoprazole Sodium [Protonix] 40 mg PO DAILY 10/27/19 [History] Tryptophan [l-Tryptophan] 2,000 mg PO DAILY PRN 10/27/19 [History] busPIRone [Buspar] 5 mg PO BID 10/27/19 [History] Ascorbic Acid [Vitamin C] 1,000 mg PO DAILY 10/01/20 [History] tiZANidine [Zanaflex] 2 mg PO BID 10/01/20 [History] Calcitonin ([place]) [Miacalcin Nasal [place]] 1 spray JOHN DAILY #1 bottle 05/31/21 [Rx] hydrALAZINE [Apresoline] 25 mg PO TID #0 06/23/21 [Rx] Albuterol Sulfate [Albuterol Sulfate Hfa] 1 - 2 puff IH Q4HR PRN 07/28/21 [History] Aspirin [Adult Low Dose Aspirin EC] 81 mg PO DAILY 07/28/21 [History] Turmeric Root Extract [Turmeric Curcumin] 1,000 mg PO DAILY PRN 07/28/21 [History] Ubidecarenone [Co Q-10] 100 mg PO DAILY 07/28/21 [History] Zinc 50 mg PO DAILY 07/28/21 [History] Past Medical History HEENT History: Reports: Cataract, Impaired Vision Cardiovascular History: Reports: High Cholesterol, Hypertension Respiratory History: Reports: Asthma Gastrointestinal History: Reports: GERD Genitourinary History: Reports: Renal Disease [employer] History: Reports: Musculoskeletal History: Reports: Osteoporosis, RA, Other (See Below) Other Musculoskeletal History: Polymyalgia rheumatica Neurological History: Reports: Concussion Psychiatric History: Reports: Anxiety, Other (See Below) Other Psychiatric History: forgettful Endocrine/Metabolic History: Reports: Hyperparathyroidism Hematologic History: Reports: Other (See Below) Other Hematologic History: elevated WBC, refered hematology Immunologic History: Reports: None Oncologic (Cancer) History: Reports: None Dermatologic History: Reports: Cellulitis - Infectious Disease History Infectious Disease History: Reports: Chicken Pox - Past Surgical History HEENT Surgical History: Reports: None Cardiovascular Surgical History: Reports: None Respiratory Surgical History: Reports: None GI Surgical History: Reports: Appendectomy, Colon Female Surgical History: Reports: Section Endocrine Surgical History: Reports: None Neurological Surgical History: Reports: None Musculoskeletal Surgical History: Reports: None Oncologic Surgical History: Reports: None Dermatological Surgical History: Reports: Other (See Below) Social & Family History - Family History Family Medical History: No Pertinent Family History - Tobacco Use Tobacco Use Status *Q: Never Tobacco User - Caffeine Use Caffeine Use: Reports: Soda Other Caffeine Use: 1 cup coffee per day - Recreational Drug Use Recreational Drug Use: No ED ROS GENERAL - Review of Systems Review Of Systems: Comprehensive ROS is negative, except as noted in HPI. ED EXAM, GENERAL - Physical Exam Exam: See Below Free Text/Narrative:: General: Patient is very anxious appearing. She is tachypneic and hyperventilating. She is alert and oriented. HEENT: Head is normocephalic and atraumatic. Pupils are equal, round, and reactive to light and accommodation. Extraocular movements are intact. No visible nystagmus. Hearing is intact. Nares are patent without rhinorrhea. Oral mucosa is moist without lesions or exudates. Neck: Trachea is midline. No thyromegaly. No midline masses. No lymphadenopathy. Chest/lungs she has a kyphotic posture. Lungs are clear to auscultation bilaterally. No wheezes or rhonchi. As stated, patient is tachypneic and hyperventilating. Cardiovascular: Regular rate and rhythm. No murmurs. Extremities: Warm and well perfused. No peripheral edema. Abdomen: Soft and nontender. No masses or organomegaly. Neurologic: No focal deficits. Cranial nerves are intact. Skin: Adequate turgor. Musculoskeletal: Chronic joint changes consistent with chronic rheumatoid arthritis. Course - Vital Signs Last Recorded V/S: Last Vital Signs Temp 98.0 F 08/16/21 18:46 Pulse 84 08/16/21 18:46 Resp 16 08/16/21 18:46 BP 111/68 08/16/21 18:46 Pulse Ox 98 08/16/21 18:46 Vitals normal. - Orders/Labs/Meds Orders: Active Orders 24 hr Category Date Time Status Pulse Oximetry Continuous Monitoring [OM.PC] Routine Oth 08/16/21 19:28 Ordered Labs: Laboratory Tests 08/16/21 08/16/21 08/16/21 Range/Units 19:00 19:08 19:08 WBC 9.6 (3.2-11.0) K/uL RBC 3.67 L (3.77-5.24) M/uL Hgb 11.2 (11.2-15.5) Hct 35.4 (34.3-46.0) % MCV 96.5 (81.4-99.0) fL MCH 30.5 L (31.6-35.5) pg MCHC 31.6 (31.6-35.5) g/dL Plt Count 567 H (130-375) K/uL Immature Gran % (Auto) 0.5 (0.0-0.7) % Neut % (Auto) 69.4 H (36-66) % Lymph % (Auto) 15.5 L (24-44) % [place] % (Auto) 10.3 H (2-6) % Eos % (Auto) 3.3 (2-4) % Baso % (Auto) 1.0 (0-1) % Neut # (Auto) 6.65 (1.0-7.6) K/uL Lymph # (Auto) 1.49 (0.8-3.3) K/uL [place] # (Auto) 0.99 H (0.20-0.90) K/uL Eos # (Auto) 0.32 (0.00-0.40) K/uL Baso # (Auto) 0.10 (0.00-0.10) K/uL Immature Gran # (Auto) 0.05 (0.00-0.23) K/uL ABG Hemoglobin 11.7 L (12.0-16.0) g/dL ABG Oxyhemoglobin 68.1 % ABG Carboxyhemoglobin 2.3 H (0.0-1.6) % ABG Methemoglobin 1.0 % VBG pH 7.489 H (7.350-7.450) VBG pCO2 28.1 mm/Hg VBG pO2 36.0 mm/Hg VBG HCO3 21.1 mmol/L VBG Total CO2 19.0 mmol/L VBG O2 Saturation 70.4 VBG O2 Content 11.2 %vol VBG Base Excess -0.9 mm/L O2 Delivery Device Room air Sodium (140-148) mmol/L Potassium (3.6-5.2) mmol/L Chloride (100-108) mmol/L Carbon Dioxide (21-32) mmol/L Anion Gap (5.0-14.0) mmol/L BUN (7-18) mg/dL Creatinine (0.6-1.0) mg/dL Est Cr Clr Drug Dosing mL/min Estimated GFR (MDRD) (>60) Glucose (74-106) mg/dL Calcium (8.5-10.1) mg/dL Albumin 2.8 L (3.4-5.0) g/dL 08/16/21 Range/Units 19:08 WBC (3.2-11.0) K/uL RBC (3.77-5.24) M/uL Hgb (11.2-15.5) Hct (34.3-46.0) % MCV (81.4-99.0) fL MCH (31.6-35.5) pg MCHC (31.6-35.5) g/dL Plt Count (130-375) K/uL Immature Gran % (Auto) (0.0-0.7) % Neut % (Auto) (36-66) % Lymph % (Auto) (24-44) % [place] % (Auto) (2-6) % Eos % (Auto) (2-4) % Baso % (Auto) (0-1) % Neut # (Auto) (1.0-7.6) K/uL Lymph # (Auto) (0.8-3.3) K/uL [place] # (Auto) (0.20-0.90) K/uL Eos # (Auto) (0.00-0.40) K/uL Baso # (Auto) (0.00-0.10) K/uL Immature Gran # (Auto) (0.00-0.23) K/uL ABG Hemoglobin (12.0-16.0) g/dL ABG Oxyhemoglobin % ABG Carboxyhemoglobin (0.0-1.6) % ABG Methemoglobin % VBG pH (7.350-7.450) VBG pCO2 mm/Hg VBG pO2 mm/Hg VBG HCO3 mmol/L VBG Total CO2 mmol/L VBG O2 Saturation VBG O2 Content %vol VBG Base Excess mm/L O2 Delivery Device Sodium 139 L (140-148) mmol/L Potassium 4.8 (3.6-5.2) mmol/L Chloride 105 (100-108) mmol/L Carbon Dioxide 22 (21-32) mmol/L Anion Gap 16.8 H (5.0-14.0) mmol/L BUN 42 H (7-18) mg/dL Creatinine 2.7 H (0.6-1.0) mg/dL Est Cr Clr Drug Dosing 12.36 mL/min Estimated GFR (MDRD) 17 L (>60) Glucose 98 (74-106) mg/dL Calcium 13.1 H* D (8.5-10.1) mg/dL Albumin (3.4-5.0) g/dL Respiratory alkalosis, consistent with clinical picture of hyperventilation. Laboratory Tests 07/24/21 08/16/21 15:22 19:08 Calcium 9.2 13.1 H* D Laboratory Tests 06/22/21 07/24/21 08/16/21 19:27 15:22 19:08 Creatinine 2.2 H 2.5 H 2.7 H Meds: Medications Discontinued Medications Generic Name Dose Route Start Last Admin Trade Name Thaiq PRN Reason Stop Dose Admin Lorazepam 1 mg 08/16/21 18:59 08/16/21 19:35 Lorazepam 2 Mg/Ml Sdv IM 08/16/21 19:00 1 mg ONETIME ONE Administration - Re-Assessments/Exams Free Text/Narrative Re-Assessment/Exam: 08/16/21 19:30 Patient reexamined. She is stable. She appears less anxious. She is alert. 08/16/21 19:[address] [facility] were reviewed. 08/16/21 19:51 Patient received lorazepam. She is feeling less anxious. Discussed her labs. Patient is hypercalcemic. Encourage patient to drink liquids in the emergency department. She states that she would be agreeable to this. Alternatively if she is intolerant, will place IV for fluid bolus. May not need this as long as she is able to demonstrate tolerance of oral intake. Free Text/Narrative Re-Assessment/Exam: 08/16/21 20:20 Patient is somnolent after receiving lorazepam. She is breathing effectively. Lungs are clear. She is able to respond to questions appropriately. Discussed discharge plan. Will recheck vitals before discharge. 08/16/21 20:21 Patient has follow-up in the clinic next week. 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, Medication withdrawal, Chronic kidney disease (CKD), stage IV (severe), Hyperventilation syndrome, Secondary hyperparathyroidism Rheumatoid arthritis Qualifiers: Rheumatoid factor presence: unspecified presence Laterality: unspecified laterality - Discharge Information *PRESCRIPTION DRUG MONITORING PROGRAM REVIEWED*: Not Applicable *COPY OF PRESCRIPTION DRUG MONITORING REPORT IN PATIENT YAW: Not Applicable Instructions: Food Basics for Chronic Kidney Disease, Hypercalcemia Referrals: Roverto Dewey MD [Primary Care Provider] - Forms: ED Department Discharge Additional Instructions: Patient should have follow-up in 2 to 4 days. She should return to the ED within the next 24-48 hours if clinically worse. Recommend repeat BMP. Educated patient on the importance of oral hydration. No evidence of volume overload. Evidence for mild hypovolemia. Patient's clinical presentation did not require emergent calcium lowering. IV fluid bolus was deferred. Diuretics were not indicated. Patient should continue nasal calcitonin. Educated patient on avoidance of any calcium supplementation or excessive dietary calcium intake. Recommend resuming Buspar dosing at a level where withdrawal was not previously present. She started to have problems with going from 3 tabs/day down to 2 tabs/day. Sepsis Event Note (ED) - Evaluation Sepsis Screening Result: No Definite Risk - Focused Exam Vital Signs: Vital Signs Temp Pulse Resp BP Pulse Ox 08/16/21 18:46 98.0 F 84 16 111/68 98 08/16/21 18:21 98.0 F 84 16 111/68 98 - Problem List & Annotations (1) Hyperventilation syndrome SNOMED Code(s): 773569237 Code(s): F45.8 - OTHER SOMATOFORM DISORDERS Status: Acute Current Visit: Yes (2) Hypercalcemia due to chronic kidney disease SNOMED Code(s): 0353363950 Code(s): E83.52 - HYPERCALCEMIA; N18.9 - CHRONIC KIDNEY DISEASE, UNSPECIFIED Status: Acute Current Visit: Yes (3) Medication withdrawal SNOMED Code(s): 713202968 Code(s): F19.239 - OTH PSYCHOACTIVE SUBSTANCE DEPENDENCE WITH WITHDRAWAL, UNSP Status: Acute Current Visit: Yes (4) Renal insufficiency SNOMED Code(s): 189098898, 789129382 Code(s): N28.9 - DISORDER OF KIDNEY AND URETER, UNSPECIFIED Status: Acute Current Visit: No - Problem List Review Problem List Initiated/Reviewed/Updated: Yes - My Orders Last 24 Hours: My Active Orders 08/16/21 19:28 Pulse Oximetry Continuous Monitoring [OM.PC] Routine - Assessment/Plan Last 24 Hours: My Active Orders 08/16/21 19:28 Pulse Oximetry Continuous Monitoring [OM.PC] Routine Assessment:: 1. Withdrawal to BuSpar with hyperventilation and anxiety. 2. Hypercalcemia, secondary to chronic kidney disease stage IV with secondary hyperparathyroidism. 3. Acute on chronic renal insufficiency with mild bulimia Plan: Patient will be discharged to home. She demonstrates tolerance for oral hydration. She will continue to push fluids. She will avoid excess calcium. She will resume BuSpar with 3 tablets/day. This was the dose that she was last on before withdrawal symptoms developed. She has follow-up in the clinic next week. She should keep this appointment. Patient states that labs will be rechecked before that appointment.
[2021-08-16] MEDS ORDERED: LORazepam 2 MG/ML SDV IM ONE (18:59)
== END 2021-08-16 20:49 | disposition home or self-care (01) ==
LOC: JP.ED 16:32
DX: F19.239 Other psychoactive substance dependence with withdrawal, unspecified (principal); E83.52 Hypercalcemia; I12.9 Hypertensive chronic kidney disease with stage 1 through stage 4 chronic kidney disease, or unspecified chronic kidney disease; N18.4 Chronic kidney disease, stage 4 (severe); F45.8 Other somatoform disorders; M06.9 Rheumatoid arthritis, unspecified; E78.00 Pure hypercholesterolemia, unspecified; K21.9 Gastro-esophageal reflux disease without esophagitis; Z88.1 Allergy status to other antibiotic agents; Z88.8 Allergy status to other drugs, medicaments and biological substances; Z88.5 Allergy status to narcotic agent; Z79.82 Long term (current) use of aspirin; Z79.899 Other long term (current) drug therapy
CPT/HCPCS: 36415; 80048; 82040; 82803; 85025; 96372; 99283; J2060

== ENCOUNTER 2021-09-13 04:52 | Emergency (ER) | payer MEDICARE, BC ==
[2021-09-13] MEDS ORDERED: Sodium Chloride 0.9% 10 ML Syringe FLUSH PRN (05:37)
[2021-09-13] MEDS ORDERED: fentaNYL 100 MCG/2 ML SDV IVPUSH ONE (05:38)
[2021-09-13] MEDS ORDERED: Ondansetron 4 MG/2 ML SDV IVPUSH ONE (05:38)
[2021-09-13] MEDS ORDERED: Lactated Ringers 1,000 ML IV SCH (05:45)
[2021-09-13] MEDS ORDERED: Sodium Chloride 0.9% 75 ML IV ONE (06:28)
[2021-09-13] MEDS ORDERED: Iopamidol 612 MG/ML 100 ML Bottle IV PRN (06:28)
[2021-09-13] MEDS ORDERED: Sodium Chloride 0.9% 1,000 ML IV SCH (08:30)
[2021-09-13 08:56] LABS: CORONAVIRUS COVID-19 NAA NEGATIVE (NEGATIVE)
== END 2021-09-13 10:00 ==
LOC: JP.ED 04:52
DX: N13.2 Hydronephrosis with renal and ureteral calculous obstruction (principal); N17.9 Acute kidney failure, unspecified; I12.9 Hypertensive chronic kidney disease with stage 1 through stage 4 chronic kidney disease, or unspecified chronic kidney disease; N18.9 Chronic kidney disease, unspecified; N25.81 Secondary hyperparathyroidism of renal origin; E83.52 Hypercalcemia; E78.00 Pure hypercholesterolemia, unspecified; K21.9 Gastro-esophageal reflux disease without esophagitis; Z88.5 Allergy status to narcotic agent; Z88.1 Allergy status to other antibiotic agents; Z88.8 Allergy status to other drugs, medicaments and biological substances; Z79.82 Long term (current) use of aspirin; Z79.899 Other long term (current) drug therapy; Z20.822 Contact with and (suspected) exposure to COVID-19
CPT/HCPCS: 0241U; 36415; 74176; 80053; 81001; 83605; 83690; 85025; 96374; 96375; 99285; J2405; J3010; J7030; J7120

== ENCOUNTER 2021-09-23 14:03 | Emergency (ER) | payer MEDICARE, BC ==
[2021-09-23] MEDS: Sodium Chloride 0.9% 500 ML IV ONE ×2 (15:22→16:55)
[2021-09-23] MEDS: HYDROmorphone 0.5 MG/0.5 ML Syringe IVPUSH ONE (15:22)
[2021-09-23] MEDS: Ondansetron 4 MG/2 ML SDV IVPUSH ONE (15:22)
== END 2021-09-23 18:40 | disposition home or self-care (01) ==
LOC: JP.ED 14:03
DX: N20.1 Calculus of ureter (principal); N17.9 Acute kidney failure, unspecified; E11.22 Type 2 diabetes mellitus with diabetic chronic kidney disease; I12.9 Hypertensive chronic kidney disease with stage 1 through stage 4 chronic kidney disease, or unspecified chronic kidney disease; N18.4 Chronic kidney disease, stage 4 (severe); E86.0 Dehydration; E87.5 Hyperkalemia; E78.00 Pure hypercholesterolemia, unspecified; K21.9 Gastro-esophageal reflux disease without esophagitis; Z88.5 Allergy status to narcotic agent; Z88.1 Allergy status to other antibiotic agents; Z79.82 Long term (current) use of aspirin
CPT/HCPCS: 36415; 80048; 80076; 81001; 83605; 83690; 85025; 96374; 96375; 99284; J1170; J2405; J7040

== ENCOUNTER 2021-09-27 14:52 | Emergency (ER) | payer MEDICARE, BC ==
[2021-09-27] MEDS ORDERED: HYDROmorphone 1 MG/ML Syringe IM ONE (15:40)
== END 2021-09-27 17:16 | disposition home or self-care (01) ==
LOC: JP.ED 14:52
DX: N20.0 Calculus of kidney (principal); E78.00 Pure hypercholesterolemia, unspecified; I12.9 Hypertensive chronic kidney disease with stage 1 through stage 4 chronic kidney disease, or unspecified chronic kidney disease; E11.22 Type 2 diabetes mellitus with diabetic chronic kidney disease; N18.4 Chronic kidney disease, stage 4 (severe); K21.9 Gastro-esophageal reflux disease without esophagitis; Z88.1 Allergy status to other antibiotic agents; Z88.5 Allergy status to narcotic agent; Z79.899 Other long term (current) drug therapy; Z79.82 Long term (current) use of aspirin
CPT/HCPCS: 96372; 99283; J1170; 99282

== ENCOUNTER 2021-10-11 09:41 | Observation (INO) | payer MEDICARE, BC ==
[2021-10-11] MEDS ORDERED: Sodium Chloride 0.9% 500 ML IV SCH (11:00)
[2021-10-11] MEDS ORDERED: Propofol 200 MG/20 ML SDV IVPUSH ONE (11:05)
[2021-10-11] MEDS ORDERED: Carvedilol 12.5 MG Tab PO ONE (12:04)
[2021-10-11 13:29] LABS: CORONAVIRUS COVID-19 NAA NEGATIVE (NEGATIVE)
[2021-10-11] MEDS ORDERED: Sodium Chloride 0.9% 10 ML Syringe FLUSH PRN (14:03)
[2021-10-11] MEDS ORDERED: Polyethylene Glycol 3350 Powder 17 GM Packet PO PRN (14:03)
[2021-10-11] MEDS ORDERED: Albuterol 8 GM Inhaler INH PRN (14:03)
[2021-10-11] MEDS: oxyCODONE 5 MG Tab PO PRN ×2 (14:25→20:13)
[2021-10-11] MEDS: Enoxaparin 30 MG/0.3 ML Syringe SUBCUT SCH (14:42)
[2021-10-11] MEDS ORDERED: Magnesium Sulfate/Water 2 GM in Premix Bag 1 BAG IV ONE (15:00)
[2021-10-11] MEDS: Ondansetron 4 MG/2 ML SDV IV PRN ×2 (16:13→20:12)
[2021-10-11] MEDS ORDERED: Alum Hydrox/Mag Hydrox/Simeth 15 ML, Lidocaine 2% 15 ML PO ONE ×2 (16:32)
[2021-10-11] MEDS ORDERED: Alum Hydrox/Mag Hydrox/Simeth 15 ML, Lidocaine 2% 15 ML PO PRN ×2 (17:39)
[2021-10-11] MEDS: Carvedilol 12.5 MG Tab PO SCH (20:15)
[2021-10-11] MEDS: tiZANidine 2 MG Tab PO SCH (20:15)
[2021-10-11] MEDS: Magnesium Oxide 400 MG Tab PO SCH (20:15)
[2021-10-11] MEDS: QUEtiapine 25 MG Tab PO SCH (20:15)
[2021-10-11] MEDS: Melatonin 3 MG Tab PO SCH (20:19)
[2021-10-11] MEDS ORDERED: Carvedilol 3.125 MG Tab PO SCH (21:00)
[2021-10-11] MEDS ORDERED: LORazepam 0.5 MG Tab PO ONE (21:08)
[2021-10-12] MEDS: tiZANidine 2 MG Tab PO SCH (08:31)
[2021-10-12] MEDS: Aspirin 81 MG Tab.EC PO SCH (08:32)
[2021-10-12] MEDS: QUEtiapine 25 MG Tab PO SCH (08:33)
[2021-10-12] MEDS: Magnesium Oxide 400 MG Tab PO SCH ×2 (08:34→20:21)
[2021-10-12] MEDS: Carvedilol 12.5 MG Tab PO SCH (08:35)
[2021-10-12] MEDS: Enoxaparin 30 MG/0.3 ML Syringe SUBCUT SCH (08:35)
[2021-10-12] MEDS: CALCITONIN NAS SCH (08:37)
[2021-10-12] MEDS ORDERED: Calcitonin (Salmon) Nasal Spray 3.7 ML Bottle NAS SCH (09:00)
[2021-10-12] MEDS ORDERED: Alum Hydrox/Mag Hydrox/Simeth 15 ML, Lidocaine 2% 15 ML PO ONE ×2 (09:38)
[2021-10-12] MEDS ORDERED: Sodium Chloride 0.9% 500 ML IV ONE ×2 (10:30→12:00)
[2021-10-12] MEDS: Acetaminophen 325 MG Tab PO PRN ×2 (11:18→16:44)
[2021-10-12] MEDS: oxyCODONE 5 MG Tab PO PRN ×2 (14:32→20:21)
[2021-10-12] MEDS: Melatonin 3 MG Tab PO SCH (20:21)
[2021-10-12] MEDS: Carvedilol 3.125 MG Tab PO SCH (20:21)
[2021-10-12] MEDS ORDERED: Carvedilol 12.5 MG Tab PO SCH (21:00)
[2021-10-12] MEDS: LORazepam 0.5 MG Tab PO PRN (21:46)
[2021-10-13] MEDS: LORazepam 0.5 MG Tab PO PRN ×2 (01:23→22:43)
[2021-10-13] MEDS: oxyCODONE 5 MG Tab PO PRN ×2 (01:55→07:32)
[2021-10-13] MEDS: Acetaminophen 325 MG Tab PO PRN ×2 (07:35→12:06)
[2021-10-13] MEDS: Aspirin 81 MG Tab.EC PO SCH (08:21)
[2021-10-13] MEDS: Carvedilol 3.125 MG Tab PO SCH ×2 (08:21→20:27)
[2021-10-13] MEDS: Magnesium Oxide 400 MG Tab PO SCH ×2 (08:21→20:27)
[2021-10-13] MEDS: Enoxaparin 30 MG/0.3 ML Syringe SUBCUT SCH (09:38)
[2021-10-13] MEDS: CALCITONIN NAS SCH (09:39)
[2021-10-13] MEDS: traMADol 50 MG Tab PO PRN ×2 (09:49→21:49)
[2021-10-13] MEDS: Pantoprazole 40 MG Tab.CR PO SCH (16:16)
[2021-10-13] MEDS: Ondansetron 4 MG/2 ML SDV IV PRN (17:00)
[2021-10-13] MEDS: Acetaminophen 500 MG Tab PO SCH (20:27)
[2021-10-13] MEDS: Melatonin 3 MG Tab PO SCH (20:27)
[2021-10-14] MEDS: LORazepam 0.5 MG Tab PO PRN (04:20)
[2021-10-14] MEDS: Pantoprazole 40 MG Tab.CR PO SCH (07:59)
[2021-10-14] MEDS: Acetaminophen 500 MG Tab PO SCH (08:00)
[2021-10-14] MEDS: Enoxaparin 30 MG/0.3 ML Syringe SUBCUT SCH (08:00)
[2021-10-14] MEDS: Aspirin 81 MG Tab.EC PO SCH (08:01)
[2021-10-14] MEDS: Magnesium Oxide 400 MG Tab PO SCH (08:01)
[2021-10-14] MEDS: Carvedilol 3.125 MG Tab PO SCH (08:01)
[2021-10-14] MEDS: CALCITONIN NAS SCH (09:27)
== END 2021-10-14 10:40 | disposition home or self-care (01) ==
LOC: JP.ED 09:41 → JP.ICU 12:31 → INTOOBSV 12:31
PROVIDERS: ADMIT Hospitalist; ATTEND Internal Medicine
DX: R00.0 Tachycardia, unspecified (principal); I47.2 Ventricular tachycardia; N18.4 Chronic kidney disease, stage 4 (severe); H54.7 Unspecified visual loss; E78.00 Pure hypercholesterolemia, unspecified; R53.1 Weakness; I49.9 Cardiac arrhythmia, unspecified; E78.5 Hyperlipidemia, unspecified; F41.9 Anxiety disorder, unspecified; E11.22 Type 2 diabetes mellitus with diabetic chronic kidney disease; I12.9 Hypertensive chronic kidney disease with stage 1 through stage 4 chronic kidney disease, or unspecified chronic kidney disease; J45.909 Unspecified asthma, uncomplicated; M81.0 Age-related osteoporosis without current pathological fracture; M06.9 Rheumatoid arthritis, unspecified; G89.29 Other chronic pain; M54.9 Dorsalgia, unspecified; M35.3 Polymyalgia rheumatica; E21.3 Hyperparathyroidism, unspecified; K21.9 Gastro-esophageal reflux disease without esophagitis; G31.84 Mild cognitive impairment of uncertain or unknown etiology; Z88.1 Allergy status to other antibiotic agents; Z88.8 Allergy status to other drugs, medicaments and biological substances; R10.30 Lower abdominal pain, unspecified; I95.2 Hypotension due to drugs; T50.995A Adverse effect of other drugs, medicaments and biological substances, initial encounter; Z20.822 Contact with and (suspected) exposure to COVID-19; E83.42 Hypomagnesemia; Z79.1 Long term (current) use of non-steroidal anti-inflammatories (NSAID); Z79.899 Other long term (current) drug therapy; Z79.82 Long term (current) use of aspirin; Z86.718 Personal history of other venous thrombosis and embolism; Z79.01 Long term (current) use of anticoagulants; Z87.442 Personal history of urinary calculi; Z79.4 Long term (current) use of insulin; Z98.42 Cataract extraction status, left eye; Z98.41 Cataract extraction status, right eye; Z90.49 Acquired absence of other specified parts of digestive tract; Y92.89 Other specified places as the place of occurrence of the external cause; Z90.89 Acquired absence of other organs; Z98.890 Other specified postprocedural states
CPT/HCPCS: 0241U; 36415; 80048; 81001; 83735; 85025; 92960; 93005; 93010; 99282; 99285-25; A9270-GY; J1650; J2405; J2704; J3475; J7030

== ENCOUNTER 2021-10-20 18:22 | Inpatient (IN) | payer MEDICARE, BC ==
[2021-10-20] MEDS ORDERED: Sodium Chloride 0.9% 10 ML Syringe FLUSH PRN (19:07)
[2021-10-20] MEDS ORDERED: HYDROmorphone 0.5 MG/0.5 ML Syringe IVPUSH ONE ×2 (19:08→20:08)
[2021-10-20] MEDS ORDERED: Sodium Chloride 0.9% 500 ML IV ONE (19:55)
[2021-10-20] MEDS ORDERED: Glucagon,Human Recombinant 1 MG Vial IM PRN (19:55)
[2021-10-20] MEDS ORDERED: Insulin Regular, Human 100 Units/ML 3 ML Vial IVPUSH ONE (19:55)
[2021-10-20] MEDS ORDERED: 50% Dextrose in Water 50 ML Syringe IVPUSH ONE ×2 (19:57→22:24)
[2021-10-20] MEDS ORDERED: Dextrose 5%-0.9% NaCl 1,000 ML IV SCH (20:00)
[2021-10-20] MEDS ORDERED: Ondansetron 4 MG/2 ML SDV IVPUSH ONE (20:03)
[2021-10-20] MEDS ORDERED: Albuterol 0.083% 2.5 MG/3 ML Neb Soln NEB ONE (20:09)
[2021-10-20] MEDS ORDERED: Sodium Chloride 23.4% 77 MEQ in Dextrose 10% in Water 500 ML IV SCH ×2 (22:30)
[2021-10-20 22:57] LABS: CORONAVIRUS COVID-19 NAA NEGATIVE (NEGATIVE)
[2021-10-20] MEDS ORDERED: Dextrose 5%-0.45% NaCl 1,000 ML IV SCH (23:00)
[2021-10-21] MEDS: oxyCODONE 5 MG Tab PO PRN ×2 (00:26→04:24)
[2021-10-21] MEDS: Acetaminophen 500 MG Tab PO PRN ×2 (01:32→12:50)
[2021-10-21] MEDS: Ondansetron 4 MG Tab.DIS PO PRN ×2 (03:00→07:47)
[2021-10-21] MEDS ORDERED: ALBUTEROL INH PRN (08:08)
[2021-10-21] MEDS ORDERED: traMADol 50 MG Tab PO PRN (08:08)
[2021-10-21] MEDS ORDERED: Magnesium Sulfate/Water 2 GM in Premix Bag 1 BAG IV SCH (09:00)
[2021-10-21] MEDS ORDERED: HYDROmorphone 0.5 MG/0.5 ML Syringe IVPUSH ONE (09:30)
[2021-10-21] MEDS: OXYBUTYNIN CHLORIDE 10 MG PO SCH (10:51)
[2021-10-21] MEDS: CARVEDILOL 6.25 MG PO SCH ×2 (10:52→20:01)
[2021-10-21] MEDS: Pantoprazole 40 MG Tab.CR*POM PO SCH (10:53)
[2021-10-21] MEDS: Magnesium Oxide 400 MG Tab PO SCH ×2 (10:54→20:02)
[2021-10-21] MEDS: Enoxaparin 30 MG/0.3 ML Syringe SUBCUT SCH (10:54)
[2021-10-21] MEDS: Aspirin 81 MG Tab.EC PO SCH (10:55)
[2021-10-21] MEDS: CALCITONIN NAS SCH (10:56)
[2021-10-21] MEDS ORDERED: LORazepam 2 MG/ML SDV IVPUSH ONE (11:00)
[2021-10-21] MEDS: LORazepam 0.5 MG Tab PO PRN ×3 (14:36→23:45)
[2021-10-21] MEDS: HYDROmorphone 2 MG Tab PO PRN ×3 (15:21→23:45)
[2021-10-21] MEDS ORDERED: LORazepam 2 MG/ML SDV IVPUSH STA (16:40)
[2021-10-21] MEDS: Divalproex Sodium Delayed-Release 250 MG Tab.CR PO SCH (18:45)
[2021-10-21] MEDS: Melatonin 3 MG Tab PO SCH (20:02)
[2021-10-21] MEDS ORDERED: Pregabalin 25 MG Cap PO SCH (21:00)
[2021-10-22] MEDS: HYDROmorphone 2 MG Tab PO PRN ×4 (03:45→21:10)
[2021-10-22] MEDS: LORazepam 0.5 MG Tab PO PRN ×4 (07:08→21:09)
[2021-10-22] MEDS: Pantoprazole 40 MG Tab.CR*POM PO SCH (07:09)
[2021-10-22] MEDS: Acetaminophen 500 MG Tab PO PRN (07:17)
[2021-10-22] MEDS: CARVEDILOL 6.25 MG PO SCH (08:19)
[2021-10-22] MEDS: Divalproex Sodium Delayed-Release 250 MG Tab.CR PO SCH (08:19)
[2021-10-22] MEDS: Magnesium Oxide 400 MG Tab PO SCH ×2 (08:21→21:03)
[2021-10-22] MEDS: DULoxetine 30 MG Cap PO SCH (08:21)
[2021-10-22] MEDS: Enoxaparin 30 MG/0.3 ML Syringe SUBCUT SCH (08:21)
[2021-10-22] MEDS: CALCITONIN NAS SCH (08:21)
[2021-10-22] MEDS: Aspirin 81 MG Tab.EC PO SCH (08:21)
[2021-10-22] MEDS: OXYBUTYNIN CHLORIDE 10 MG PO SCH (08:22)
[2021-10-22] MEDS ORDERED: HYDROmorphone 0.5 MG/0.5 ML Syringe IVPUSH ONE (11:32)
[2021-10-22] MEDS: Ondansetron 4 MG Tab.DIS PO PRN (12:55)
[2021-10-22] MEDS ORDERED: Albuterol 8 GM Inhaler INH PRN (15:42)
[2021-10-22] MEDS: Divalproex Sodium Delayed-Release 125 MG Cap.Sprink PO SCH (16:44)
[2021-10-22] MEDS: Carvedilol 3.125 MG Tab PO SCH (21:03)
[2021-10-22] MEDS: Melatonin 3 MG Tab PO SCH (21:05)
[2021-10-23] MEDS: LORazepam 0.5 MG Tab PO PRN ×2 (01:21→07:21)
[2021-10-23] MEDS: HYDROmorphone 2 MG Tab PO PRN ×3 (07:21→19:35)
[2021-10-23] MEDS ORDERED: Sodium Polystyrene Sulfonate 15 GM/60 ML Susp 60 ML Bot PO ONE (08:15)
[2021-10-23] MEDS: OXYBUTYNIN CHLORIDE 10 MG PO SCH (13:15)
[2021-10-23] MEDS: CALCITONIN NAS SCH (13:15)
[2021-10-23] MEDS: Divalproex Sodium Delayed-Release 125 MG Cap.Sprink PO SCH ×2 (13:16→17:29)
[2021-10-23] MEDS: Enoxaparin 30 MG/0.3 ML Syringe SUBCUT SCH (13:16)
[2021-10-23] MEDS: Pantoprazole 40 MG Tab.CR PO SCH (13:16)
[2021-10-23] MEDS: DULoxetine 30 MG Cap PO SCH (13:17)
[2021-10-23] MEDS: Magnesium Oxide 400 MG Tab PO SCH ×2 (13:17→20:45)
[2021-10-23] MEDS: Aspirin 81 MG Tab.EC PO SCH (13:17)
[2021-10-23] MEDS: Carvedilol 3.125 MG Tab PO SCH ×2 (13:19→20:43)
[2021-10-23] MEDS ORDERED: LORazepam 0.5 MG Tab PO PRN (15:14)
[2021-10-23] MEDS: Acetaminophen 500 MG Tab PO PRN (16:07)
[2021-10-23] MEDS: Ondansetron 4 MG Tab.DIS PO PRN (19:34)
[2021-10-23] MEDS: Melatonin 3 MG Tab PO SCH (20:46)
[2021-10-23] MEDS: Pregabalin 25 MG Cap PO SCH (20:47)
[2021-10-24] MEDS: Acetaminophen 500 MG Tab PO PRN ×2 (00:07→20:10)
[2021-10-24] MEDS: HYDROmorphone 2 MG Tab PO PRN ×2 (01:34→08:35)
[2021-10-24] MEDS: Carvedilol 3.125 MG Tab PO SCH ×2 (08:33→20:05)
[2021-10-24] MEDS: Divalproex Sodium Delayed-Release 125 MG Cap.Sprink PO SCH ×2 (08:34→17:17)
[2021-10-24] MEDS: Aspirin 81 MG Tab.EC PO SCH (08:34)
[2021-10-24] MEDS: Pantoprazole 40 MG Tab.CR PO SCH (08:34)
[2021-10-24] MEDS: Enoxaparin 30 MG/0.3 ML Syringe SUBCUT SCH (08:36)
[2021-10-24] MEDS: CALCITONIN NAS SCH (08:36)
[2021-10-24] MEDS: Magnesium Oxide 400 MG Tab PO SCH ×2 (08:37→20:05)
[2021-10-24] MEDS: OXYBUTYNIN CHLORIDE 10 MG PO SCH (08:37)
[2021-10-24] MEDS: Pregabalin 25 MG Cap PO SCH ×2 (08:39→20:07)
[2021-10-24] MEDS: DULoxetine 30 MG Cap PO SCH (08:39)
[2021-10-24] MEDS ORDERED: HYDROmorphone 2 MG Tab PO PRN (11:02)
[2021-10-24] MEDS ORDERED: LORazepam 0.5 MG Tab PO PRN (11:02)
[2021-10-24] MEDS: Melatonin 3 MG Tab PO SCH (20:05)
[2021-10-25] MEDS: Pantoprazole 40 MG Tab.CR PO SCH (08:17)
[2021-10-25] MEDS: Divalproex Sodium Delayed-Release 125 MG Cap.Sprink PO SCH ×2 (08:17→16:28)
[2021-10-25] MEDS: Aspirin 81 MG Tab.EC PO SCH (08:18)
[2021-10-25] MEDS: Enoxaparin 30 MG/0.3 ML Syringe SUBCUT SCH (08:18)
[2021-10-25] MEDS: Carvedilol 3.125 MG Tab PO SCH ×2 (08:18→22:00)
[2021-10-25] MEDS: DULoxetine 30 MG Cap PO SCH (08:18)
[2021-10-25] MEDS: OXYBUTYNIN CHLORIDE 10 MG PO SCH (08:19)
[2021-10-25] MEDS: Magnesium Oxide 400 MG Tab PO SCH ×2 (08:19→22:12)
[2021-10-25] MEDS: Acetaminophen 500 MG Tab PO PRN (08:23)
[2021-10-25] MEDS: Pregabalin 25 MG Cap PO SCH ×2 (08:24→22:12)
[2021-10-25] MEDS: CALCITONIN NAS SCH (09:00)
[2021-10-25] MEDS: Melatonin 3 MG Tab PO SCH (22:12)
[2021-10-26] MEDS: Acetaminophen 500 MG Tab PO PRN (02:25)
[2021-10-26] MEDS: Ondansetron 4 MG Tab.DIS PO PRN (08:02)
[2021-10-26] MEDS: Magnesium Oxide 400 MG Tab PO SCH (08:02)
[2021-10-26] MEDS: Aspirin 81 MG Tab.EC PO SCH (08:02)
[2021-10-26] MEDS: DULoxetine 30 MG Cap PO SCH (08:02)
[2021-10-26] MEDS: Pantoprazole 40 MG Tab.CR PO SCH (08:02)
[2021-10-26] MEDS: CALCITONIN NAS SCH (08:03)
[2021-10-26] MEDS: Enoxaparin 30 MG/0.3 ML Syringe SUBCUT SCH (08:03)
[2021-10-26] MEDS: Divalproex Sodium Delayed-Release 125 MG Cap.Sprink PO SCH (08:03)
[2021-10-26] MEDS: Carvedilol 3.125 MG Tab PO SCH (08:03)
[2021-10-26] MEDS: Pregabalin 25 MG Cap PO SCH (08:04)
== END 2021-10-26 14:56 | disposition home or self-care (01) | DRG 880 ==
LOC: JP.ED 18:22 → JP.MS 22:51 → OBSVTOIN 10-22 14:07
PROVIDERS: ADMIT Family Medicine; ATTEND Hospitalist
DX: F41.9 Anxiety disorder, unspecified (principal); F03.91 Unspecified dementia, unspecified severity, with behavioral disturbance; N18.4 Chronic kidney disease, stage 4 (severe); E87.5 Hyperkalemia; R10.30 Lower abdominal pain, unspecified; E83.42 Hypomagnesemia; Z20.822 Contact with and (suspected) exposure to COVID-19; R45.1 Restlessness and agitation; E78.5 Hyperlipidemia, unspecified; I12.9 Hypertensive chronic kidney disease with stage 1 through stage 4 chronic kidney disease, or unspecified chronic kidney disease; J45.909 Unspecified asthma, uncomplicated; K21.9 Gastro-esophageal reflux disease without esophagitis; E11.22 Type 2 diabetes mellitus with diabetic chronic kidney disease; E21.3 Hyperparathyroidism, unspecified; M81.0 Age-related osteoporosis without current pathological fracture; R00.0 Tachycardia, unspecified; I25.10 Atherosclerotic heart disease of native coronary artery without angina pectoris; G31.84 Mild cognitive impairment of uncertain or unknown etiology; H54.7 Unspecified visual loss; E78.00 Pure hypercholesterolemia, unspecified; G89.29 Other chronic pain; M54.9 Dorsalgia, unspecified; R53.1 Weakness; M06.9 Rheumatoid arthritis, unspecified; F03.90 Unspecified dementia, unspecified severity, without behavioral disturbance, psychotic disturbance, mood disturbance, and anxiety; M35.3 Polymyalgia rheumatica; R26.9 Unspecified abnormalities of gait and mobility; Z79.82 Long term (current) use of aspirin; Z79.899 Other long term (current) drug therapy; Z88.1 Allergy status to other antibiotic agents; Z88.8 Allergy status to other drugs, medicaments and biological substances; Z86.718 Personal history of other venous thrombosis and embolism; Z87.442 Personal history of urinary calculi; Z90.49 Acquired absence of other specified parts of digestive tract; Z51.5 Encounter for palliative care
CPT/HCPCS: 0241U; 36415; 51798; 74176; 78227; 78227-26; 80048; 80076; 81001; 82947; 83735; 84100; 84132; 85025; 86140; 93005; 93010; 96365; 96366; 96372; 96374; 96375; 96376; 97110-GP; 97116-GP; 97140-GP; 97161-GP; 97530-GP; 99284; 99285-25; A9270-GY; G0378; J1170; J1650; J1790; J1815-GY; J2060; J2405; J3475; J7040; J7042; Q0162

== ENCOUNTER 2022-10-30 08:09 | Emergency (ER) | payer MEDICARE, BC ==
[2022-10-30] MEDS ORDERED: Sodium Chloride 0.9% 10 ML Syringe FLUSH PRN (08:11)
[2022-10-30] MEDS ORDERED: Aspirin 81 MG Tab.Chew PO ONE (08:29)
[2022-10-30] MEDS ORDERED: Morphine 2 MG/ML SYRINGE IVPUSH ONE (09:28)
[2022-10-30] MEDS ORDERED: Heparin Sodium 5,000 Units/ML Vial IVPUSH ONE (09:29)
[2022-10-30] MEDS ORDERED: Heparin Sodium/D5W 25,000 UNITS/500 ML BAG IV SCH (09:30)
[2022-10-30] MEDS ORDERED: Sodium Chloride 0.9% 500 ML IV ONE (09:31)
== END 2022-10-30 12:31 | disposition home or self-care (01) ==
LOC: JP.ED 08:09
DX: R07.89 Other chest pain (principal); R74.8 Abnormal levels of other serum enzymes; M35.3 Polymyalgia rheumatica; M06.9 Rheumatoid arthritis, unspecified; J45.909 Unspecified asthma, uncomplicated; I12.9 Hypertensive chronic kidney disease with stage 1 through stage 4 chronic kidney disease, or unspecified chronic kidney disease; N18.4 Chronic kidney disease, stage 4 (severe); E11.9 Type 2 diabetes mellitus without complications; Z88.8 Allergy status to other drugs, medicaments and biological substances; Z88.1 Allergy status to other antibiotic agents; Z79.899 Other long term (current) drug therapy; Z79.82 Long term (current) use of aspirin; Z90.49 Acquired absence of other specified parts of digestive tract
CPT/HCPCS: 36415; 71045; 80048; 84484; 85025; 85610; 85730; 93005; 93010; 96365; 96366; 96375; 99284; 99285; A9270; J1644; J2270; J3490; J7040